=== PATIENT | male | born 1995 | race Caucasian/White ===

== ENCOUNTER 2021-11-26 19:38 | Emergency (ER) | payer OTHER ==
--- OUTSIDE RECORDS SUMMARY | 2021-11-26 19:42 | XMS REPORT | Continuity of Care Document ---
:1995 Author Organization [facility] t Address [address] [place] [address] Care Team Providers Name Role Phone Pcp, Patient Does Not Have A Primary Care Physician [id number] Cindi WILCOX Attending Clinician Abigail MALIK, T Attending Clinician Unavailable CINDI Attending Clinician Unavailable Unknown Attending Clinician Unavailable Doctor Unassigned, Name Attending Clinician Unavailable CAMILLA Attending Clinician Unavailable Camilla LAWSON Attending Clinician Freda REARDON Attending Clinician Unavailable FLORENCE GARCIA Attending Clinician Unavailable SHARIF Attending Clinician Unavailable Payers Payer Name Policy Type Policy Number Effective Date Expiration Date S ource Problems Condition Condition Condition Status Onset Resolution Last Treating Co mments Source Name Details Category Date Date Treatment Clinician Date No known No known Disease Unive rs active active ity of problems problems [facility] [place] [facility] Allergies, Adverse Reactions, Alerts Allergy Allergy Status Severity Reaction(s) Onset Inactive Treating Comm ents Source Name Type Date Date Clinician NO KNOWN Drug Active Univers ALLERGIE Class ity of S [facility] [place] [facility] Social History Social Habit Start Date Stop Date Quantity Comments Source Exposure to Not sure [facility] SARS-CoV-2 (event) Medica l Branch Sex Assigned At [birth year] [facility] 00:00:00 00:00:00 [facility] Smoking Status Start Date Stop Date Source Unknown if ever smoked [facility] Medications Ordered Filled Start Stop Current Ordering Indication Dosage Frequency Signature Comments Components Source Medication Medication Date Date Medication? Clinician (SIG) Name Name fluticasone Yes [id number] 2{spray Use 2 Univers propionate 3-13 } Sprays in ity of 50 00:00: each [place] mcg/actuati 00 nostril Medic al on nasal daily. Branch spray bromphenira Yes [id number] 10mL Take 10 mL Univers mine-pseudo 3-13 by mouth 3 it y of ephedrine-D 00:00: (three) [place] as M (BROMFED 00 times Medical DM) 2-30-10 daily as Bran ch mg/5 mL needed for syrup Cough. fluticasone Yes [id number] 2{spray Use 2 Univers propionate 3-13 } Sprays in ity of 50 00:00: each [place] mcg/actuati 00 nostril Medic al on nasal daily. Branch spray bromphenira Yes [id number] 10mL Take 10 mL Univers mine-pseudo 3-13 by mouth 3 it y of ephedrine-D 00:00: (three) [place] as M (BROMFED 00 times Medical DM) 2-30-10 daily as Bran ch mg/5 mL needed for syrup Cough. fluticasone Yes [id number] 2{spray Use 2 Univers propionate 3-13 } Sprays in ity of 50 00:00: each [place] mcg/actuati 00 nostril Medic al on nasal daily. Branch spray bromphenira Yes [id number] 10mL Take 10 mL Univers mine-pseudo 3-13 by mouth 3 it y of ephedrine-D 00:00: (three) [place] as M (BROMFED 00 times Medical DM) 2-30-10 daily as Bran ch mg/5 mL needed for syrup Cough. benzonatate 2020-08 Yes [id number] 100mg Take 1 Univers 100 mg 1-21 capsule by ity of capsule 00:00: mouth 3 [place] 00 (three) Medical times Branch daily as needed for Cough. bromphenira 2020-08 Yes [id number] 5mL Take 5 mL Univers mine-pseudo 1-21 by mouth 4 it y of ep[place]rine-D 00:00: ([place] (BROMF[place] 00 times Medical DM) 2-30-10 daily as Bran ch mg/5 mL needed for syrup Cold symptoms. benzonatate 2020-08 Yes [id number] 100mg Take 1 Univers 100 mg 1-21 capsule by ity of capsule 00:00: mouth 3 [place] 00 (three) Medical times Branch daily as needed for Cough. bromphenira 2020-08 Yes [id number] 5mL Take 5 mL Univers mine-pseudo 1-21 by mouth 4 it y of ephedrine-D 00:00: (four[place] (BROMFED 00 times Medical DM) 2-30-10 daily as Bran ch mg/5 mL needed for syrup Cold symptoms. bromphenira 2020-08 Yes [id number] 5mL Take 5 mL Univers mine-pseudo 1-21 by mouth 4 it y of ephedrine-D 00:00: (four[place] (BROMFED 00 times Medical DM) 2-30-10 daily as Bran ch mg/5 mL needed for syrup Cold symptoms. bromphenira 2020-08 Yes [id number] 5mL Take 5 mL Univers mine-pseudo 1-21 by mouth 4 it y of ephedrine-D 00:00: (four[place] (BROMFED 00 times Medical DM) 2-30-10 daily as Bran ch mg/5 mL needed for syrup Cold symptoms. bromphenira 2020-08 Yes [id number] 5mL Take 5 mL Univers mine-pseudo 1-21 by mouth 4 it y of ephedrine-D 00:00: (four[place] (BROMFED 00 times Medical DM) 2-30-10 daily as Bran ch mg/5 mL needed for syrup Cold symptoms. benzonatate 2020-08 No [id number] 100mg Take 1 Univers 100 mg -21 03-13 capsule by ity of capsule 00:00: 00:00 mouth 3 [place] 00 :00 (three) Medical times Branch daily as needed for Cough. ibuprofen 2020-08- No 600mg 600 mg, Uni vers (IBU) 08-21 Oral, ity of tablet 600 12:00: 11:55 ONCE, 1 [place] as mg 00 :00 dose, On Medical Fri Branch 06/21/21 at 0600, JADA dexamethaso 2020-08- No 10mg 10 mg, Uni vers ne 08-21 Oral, ity of (DECADRON 11:45: 11:51 ONCE, 1 [place] PHOSPHATE[place] 00 :00 dose, On Medic al injection Fri Branch 10 mg 06/21/21 at 0600, STAT benzonatate 2020-08 Yes [id number] 100mg Take 1 Univers 100 mg 1-19 capsule by ity of capsule 00:00: mouth 3 [place] 00 (three) Medical times Branch daily as needed for Cough. benzonatate 2020-08 Yes [id number] 100mg Take 1 Univers 100 mg 1-19 capsule by ity of capsule 00:00: mouth 3 [place] 00 (three) Medical times Branch daily as needed for Cough. benzonatate 2020-08 Yes [id number] 100mg Take 1 Univers 100 mg 1-19 capsule by ity of capsule 00:00: mouth 3 [place] 00 (three) Medical times Branch daily as needed for Cough. benzonatate 2020-08- No [id number] 100mg Take 1 Univers 100 mg 1-19 -13 capsule by ity of capsule 00:00: 00:00 mouth 3 [place] 00 :00 (three) Medical times Branch daily as needed for Cough. Vital Signs Vital Name Observation Time Observation Value Comments Source Systolic blood 2021-10-13 15:39:00 137 mm[Hg] [facility] Diastolic blood 2021-10-13 15:39:00 82 mm[Hg] [facility] Heart rate 2021-10-13 15:36:00 83 /min [facility] Body temperature 2021-10-13 15:36:00 36.67 Yanet [facility] Respiratory rate 2021-10-13 15:36:00 18 /min [facility] Body height 2021-10-13 15:36:00 188 cm [facility] Body weight 2021-10-13 15:36:00 189.059 kg [facility] BMI 2021-10-13 15:36:00 53.51 kg/m2 [facility] Oxygen saturation in 2021-10-13 15:36:00 97 /min [facility] Arterial blood by [facility] Pulse oximetry Branch Systolic blood 2021-06-23 14:47:00 148 mm[Hg] Univer [facility] Diastolic blood 2021-06-23 14:47:00 100 mm[Hg] Unive rsity of pressure [place] [facility] Heart rate 2021-06-23 14:47:00 89 /min Universi ty of [facility] [place] [facility] Body temperature 2021-06-23 14:47:00 36.89 Yanet Univ ersity of [place] [facility] Respiratory rate 2021-06-23 14:47:00 18 /min Univ ersity of [place] [facility] Oxygen saturation in 2021-06-23 14:47:00 100 /min University of Arterial blood by [facility] Pulse oximetry Branch Body height 2021-06-23 13:07:00 188 cm Universi ty [facility] [place] [facility] [place] Body weight 2021-06-23 13:07:00 181.439 kg [facility]i ty [facility] [place] [facility] [place] BMI 2021-06-23 13:07:00 51.36 kg/m2 Universi ty of [facility] [place] [facility] Systolic blood 2021-06-21 12:33:00 125 mm[Hg] Univneema skelton of [facility] [place] Diastolic blood 2021-06-21 12:33:00 71 mm[Hg] Unive rsity of pressure [place] [facility] [place] Heart rate 2021-06-21 12:33:00 96 /min Universi ty [facility] [place] [facility] [place] Body temperature 2021-06-21 12:33:00 37.06 Yanet Univ ersity of [facility] [place] [facility] Respiratory rate 2021-06-21 12:33:00 18 /min Univ ersity of [facility] [place] [facility] Oxygen saturation in 2021-06-21 12:33:00 98 /min University of Arterial blood by [facility] Pulse oximetry [place] Body height 2021-06-21 11:33:00 188 cm Universi ty [facility] [place] [facility] Body weight 2021-06-21 11:33:00 181.439 kg [facility]i ty [facility] [place] [facility] BMI 2021-06-21 11:33:00 51.36 kg/m2 [facility] [place] [facility] Procedures Procedure Date / Time Performed Performing Clinician Sourc e POCT MOLECULAR FLU 2021-10-13 15:48:00 Unknown, Attending Ulisses skelton [facility] [place] [facility] POCT MOLECULAR STREP 2021-10-13 15:45:00 Unknown, Attending [facility]ENEFITS 2021-10-13 15:31:01 Doctor Unassigned, No [place] Name [facility] RAPID STREP SCREEN FOR 2021-06-23 13:44:00 Sarah Beth Sampson [facility] A [facility] Encounters Start End Encounter Admission Attending Care Care Encounter Source Date/Time Date/Time Type Type Clinicians Facility Department ID 2021-11-09 2021-11-09 Refill TERELL Rai [id number] Univers 00:00:00 00:00:00 Elizabeth PEDIATRIC [id number] [id number] [id number] [address] 2021-10-14 2021-10-14 Letter KYLAH Hayes [id number] Univers 00:00:00 00:00:00 (Out) Daniela EVANS [id number] it y of HOSPITAL [id number] [place] as [id number] [facility] 019 Branch 2021-10-13 2021-10-13 Outpatient R CINID [facility] [id number] Univers 10:45:00 11:10:45 ELIZABETH bella [facility] [place] [facility] 2021-10-13 2021-10-13 Urgent Elizabeth Rai [id number] Univers 10:45:00 11:10:45 Care Unknown, Attending PEDIATRIC [id number]. 10 [id number] [id number] [address] 2021-10-13 2021-10-13 Orders Doctor MONTERO [id number] Univers 00:00:00 00:00:00 Only Unassigned, NATHAN [id number] ity of [place] [facility] [id number] [place] as [id number] [facility] 009 Branch 2021-06-23 2021-06-23 Emergency X [facility] ERT [id number] Univers 07:02:00 08:49:00 SARAH BETH bella [facility] [place] [facility] 2021-06-23 2021-06-23 Emergency [facility] [id number] Univers 07:02:00 08:49:00 [facility] [id number] it y of CLEAR [id number] Steve DARNELL [id number] [place] [address] Branch ([facility]) 2021-06-21 2021-06-[address] [facility] E[facility] [id number] Univers 05:23:00 06:34:00 LUKE ity [facility] [place] [facility] 2021-06-21 2021-06-[address] [facility] [id number] Univers 05:23:00 06:34:00 [facility] [id number] it y of [place] [id number] Steve DARNELL [id number] [place] [address] Branch ([facility]) 2020-12-12 2020-12-12 Emergency E DANY GARCIA [facility] [id number] 11:12:00 12:11:[address] [facility] 2020-12-09 2020-12-09 [id number] 07:13:00 09:52:00 , SULTANA [facility] Results Test Description Test Time Test Comments Results Result Comments Source POCT MOLECULAR FLU 2021-10-13 15:59:44 Test Item Value Reference Range Interpretation Comme nts POCT Molecular FluA (test code = 07236-0) Negative Negative POCT Molecular FluB (test code = 15907-4) Negative Negative Lab Interpretation (test code = 10661-2) [facility] [id number] 15:53:01 Test Item Value Reference Range Interpretation Comments POCT Molecular Strep (test code = Negative Negative 70099-9) Lab Interpretation (test code = Normal 07119-9) [facility]
--- NOTE | 2021-11-26 20:51 | ER ---
Nurse's Notes [facility] Name: Ziyad Parker Age: 26 yrs Sex: Male : 1995 Arrival Date: 11/26/2021 Time: 19:42 Bed DIS3 Private MD: Diagnosis: Impacted cerumen, bilateral;Acute upper respiratory infection, unspecified Presentation: 11/26 20:20 Chief complaint: Patient states: Nasal congestion x 1 week, reports bilateral ear pain, lp1 pain behind ears; Denies fever. 20:21 Coronavirus screen: congestion. Ebola Screen: No symptoms or risks identified at this lp1 time. Initial Sepsis Screen: Does the patient meet any 2 criteria? No. Patient's initial sepsis screen is negative. Does the patient have a suspected source of infection? No. Patient's initial sepsis screen is negative. Risk Assessment: Do you want to hurt yourself or someone else? Patient reports no desire to harm self or others. Onset of symptoms was November 26, 2021. 20:21 Method Of Arrival: Ambulatory lp1 20:21 Acuity: EDUIN 4 lp1 Historical: - Allergies: 20:24 No Known Allergies; lp1 - Home Meds: 20:24 None [Active]; lp1 - PMHx: 20:24 Sleep apnea; lp1 - PSHx: 20:24 None; lp1 - Immunization history:: Adult Immunizations up to date, Client reports receiving the 2nd dose of the Covid vaccine. - Social history:: Smoking status: Patient denies any tobacco usage or history of. Screenin:18 Abuse screen: Denies threats or abuse. Denies injuries from another. Nutritional sm5 screening: No deficits noted. Tuberculosis screening: No symptoms or risk factors identified. Fall Risk None identified. Assessment: 21:17 General: Appears in no apparent distress. Behavior is cooperative. Pain: Complains of sm5 pain in right ear, left ear and neck. Neuro: No deficits noted. Level of Consciousness is awake, alert, obeys commands, Oriented to person, place, time, situation. Cardiovascular: No deficits noted. Capillary refill < 3 seconds Patient's skin is warm and dry. Respiratory: No deficits noted. Airway is patent Trachea midline Respiratory effort is even, unlabored, Breath sounds are clear bilaterally. EENT: Ear canal ear wax to R ear. Vital Signs: 20:21 BP 145 / 85; Pulse 96; Resp 20; Temp 98.9(O); Pulse Ox 98% on R/A; Weight 181.44 kg; lp1 Height 6 ft. 2 in. (187.96 cm); 21:18 BP 141 / 87; Pulse 87; Resp 20; Pulse Ox 100% on R/A; sm5 20:21 Body Mass Index 51.36 (181.44 kg, 187.96 cm) lp1 ED Course: 19:42 Patient arrived in ED. mr 19:48 Chon Dalal MD is Attending Physician. yogesh 20:04 Kayli Solano, HELENA is Primary Nurse. sm5 20:16 COVID-19/FLU A+B/RSV (Document "Date of Onset" if Symptomatic) Sent. sm5 20:20 Arm band placed on. lp1 20:23 Triage completed. lp1 20:49 Sheree Mosquera MD is Referral Physician. yogesh 21:18 No provider procedures requiring assistance completed. Patient did not have IV access sm5 during this emergency room visit. 21:18 Patient has correct armband on for positive identification. Placed in gown. Bed in low sm5 position. Call light in reach. Side rails up X2. Administered Medications: 20:35 CANCELLED (Duplicate Order): Decadron (dexamethasone) 4 mg PO once yogesh 21:03 Drug: Decadron (dexamethasone) 8 mg Route: PO; 5 21:17 Follow up: Response: No adverse reaction 5 21:04 Drug: Rocephin (cefTRIAXone) 1 grams Route: IM; Site: left deltoid; 5 21:16 Follow up: Response: No adverse reaction 5 21:04 Drug: Zithromax (azithromycin) 500 mg Route: PO; sm5 21:16 Follow up: Response: No adverse reaction 5 Outcome: 20:50 Discharge ordered by . [facility] 21:18 Discharged to home ambulatory. 5 21:18 Condition: stable 21:18 Discharge instructions given to patient, Instructed on discharge instructions, follow up and referral plans. medication usage, Demonstrated understanding of instructions, follow-up care, medications, Prescriptions given X 3. 21:19 Patient left the ED. 5 Signatures: Chon Dalal MD MD cha Rivera, Mary mr Angela Mir, HELENA RN lp1 Russ, Kayli, RN RN sm5 Corrections: (The following items were deleted from the chart) 20:23 20:20 Chief complaint: Patient states: Nasal congestion x 1 week, reports bilateral lp1 lp1
--- NOTE | 2021-11-26 20:51 | EDPHYS ---
Physician Documentation [facility] Name: Ziyad Parker Age: 26 yrs Sex: Male : 1995 Arrival Date: 11/26/2021 Time: 19:42 Bed DIS3 Private MD: ED Physician Chon Dalal HPI: 11/26 20:41 This 26 yrs old Male presents to ER via Ambulatory with complaints of yogesh Congestion, Neck pain. 20:41 The patient or guardian reports cough, flu symptoms, arthralgias, low-grade fever, ygoesh myalgias. Onset: The symptoms/episode began/occurred 1 week(s) ago. Modifying factors: The symptoms are alleviated by nothing. the symptoms are aggravated by nothing. Associated signs and symptoms: Pertinent positives: sore throat. Severity of symptoms: At their worst the symptoms were mild in the emergency department the symptoms are unchanged. The patient has not experienced similar symptoms in the past. Historical: - Allergies: 20:24 No Known Allergies; lp1 - Home Meds: 20:24 None [Active]; lp1 - PMHx: 20:24 Sleep apnea; lp1 - PSHx: 20:24 None; lp1 - Immunization history:: Adult Immunizations up to date, Client reports receiving the 2nd dose of the Covid vaccine. - Social history:: Smoking status: Patient denies any tobacco usage or history of. ROS: 20:41 Constitutional: Negative for fever, chills, and weight loss, Eyes: Negative for injury, yogesh pain, redness, and discharge, Neck: Negative for injury, pain, and swelling, Cardiovascular: Negative for chest pain, palpitations, and edema, Respiratory: Negative for shortness of breath, cough, wheezing, and pleuritic chest pain, Abdomen/GI: Negative for abdominal pain, nausea, vomiting, diarrhea, and constipation, Back: Negative for injury and pain, : Negative for injury, bleeding, discharge, and swelling, MS/Extremity: Negative for injury and deformity, Skin: Negative for injury, rash, and discoloration, Neuro: Negative for headache, weakness, numbness, tingling, and seizure, Psych: Negative for depression, anxiety, suicide ideation, homicidal ideation, and hallucinations, Allergy/Immunology: Negative for hives, rash, and allergies, Endocrine: Negative for neck swelling, polydipsia, polyuria, polyphagia, and marked weight changes, Hematologic/Lymphatic: Negative for swollen nodes, abnormal bleeding, and unusual bruising. 20:41 ENT: Positive for drainage from ear(s), ear pain, hearing loss, nasal discharge, rhinorrhea, sinus congestion. Exam: 20:41 Constitutional: This is a well developed, well nourished patient who is awake, alert, yogesh and in no acute distress. Head/Face: Normocephalic, atraumatic. Eyes: Pupils equal round and reactive to light, extra-ocular motions intact. Lids and lashes normal. Conjunctiva and sclera are non-icteric and not injected. Cornea within normal limits. Periorbital areas with no swelling, redness, or edema. Neck: Trachea midline, no thyromegaly or masses palpated, and no cervical lymphadenopathy. Supple, full range of motion without nuchal rigidity, or vertebral point tenderness. No Meningismus. Chest/axilla: Normal chest wall appearance and motion. Nontender with no deformity. No lesions are appreciated. Cardiovascular: Regular rate and rhythm with a normal S1 and S2. No gallops, murmurs, or rubs. Normal PMI, no JVD. No pulse deficits. Respiratory: Lungs have equal breath sounds bilaterally, clear to auscultation and percussion. No rales, rhonchi or wheezes noted. No increased work of breathing, no retractions or nasal flaring. Abdomen/GI: Soft, non-tender, with normal bowel sounds. No distension or tympany. No guarding or rebound. No evidence of tenderness throughout. Back: No spinal tenderness. No costovertebral tenderness. Full range of motion. Male : Normal genitalia with no discharge or lesions. Skin: Warm, dry with normal turgor. Normal color with no rashes, no lesions, and no evidence of cellulitis. MS/ Extremity: Pulses equal, no cyanosis. Neurovascular intact. Full, normal range of motion. Neuro: Awake and alert, GCS 15, oriented to person, place, time, and situation. Cranial nerves II-XII grossly intact. Motor strength 5/5 in all extremities. Sensory grossly intact. Cerebellar exam normal. Normal gait. Psych: Awake, alert, with orientation to person, place and time. Behavior, mood, and affect are within normal limits. 20:41 ENT: Ear canal(s): cerumen impaction, bilaterally, TM's: not visable. Vital Signs: 20:21 BP 145 / 85; Pulse 96; Resp 20; Temp 98.9(O); Pulse Ox 98% on R/A; Weight 181.44 kg; lp1 Height 6 ft. 2 in. (187.96 cm); 21:18 BP 141 / 87; Pulse 87; Resp 20; Pulse Ox 100% on R/A; sm5 20:21 Body Mass Index 51.36 (181.44 kg, 187.96 cm) lp1 MDM: 19:48 Patient medically screened. yogesh 20:48 Differential diagnosis: bronchitis, flu, URI. Antibiotic administration: The patient is yogesh discharged and will get outpatient antibiotics, Zithromax. Data reviewed: vital signs, nurses notes. Data interpreted: hall monitor: not applicable for this patient encounter. rate is 98 beats/min, rhythm is atrial fibrillation, Pulse oximetry: is not applicable for this patient encounter. Counseling: I had a detailed discussion with the patient and/or guardian regarding: the historical points, exam findings, and any diagnostic results supporting the discharge/admit diagnosis, lab results, the need for outpatient follow up, for definitive care, an ENT specialist, a family practitioner. 11/26 19:49 Order name: COVID-19/FLU A+B/RSV (Document "Date of Onset" if Symptomatic); Complete yogesh Time: 21:04 11/26 20:36 Order name: Poppyc. Order: irrigate ears, warm h20,h2o2; Complete Time: 20:42 yogesh Administered Medications: 20:35 CANCELLED (Duplicate Order): Decadron (dexamethasone) 4 mg PO once yogesh 21:03 Drug: Decadron (dexamethasone) 8 mg Route: PO; sm5 21:17 Follow up: Response: No adverse reaction sm5 21:04 Drug: Rocephin (cefTRIAXone) 1 grams Route: IM; Site: left deltoid; sm5 21:16 Follow up: Response: No adverse reaction sm5 21:04 Drug: Zithromax (azithromycin) 500 mg Route: PO; sm5 21:16 Follow up: Response: No adverse reaction 5 Disposition Summary: 11/26/21 20:50 Discharge Ordered Location: Home yogesh Problem: new yogesh Symptoms: have improved yogesh Condition: Stable yogesh Diagnosis - Impacted cerumen, bilateral yogesh - Acute upper respiratory infection, unspecified [facility] Followup: yogesh - With: Private Physician - When: 2 - 3 days - Reason: Recheck today's complaints, Continuance of care, Re-evaluation by your physician Followup: yogesh - With: Sheree Mosquera MD - When: 2 - 3 days - Reason: Recheck today's complaints, Re-evaluation by your physician Discharge Instructions: - Discharge Summary Sheet [facility] - Earwax Buildup, Adult yogesh - Upper Respiratory Infection, Adult [facility] - Upper Respiratory Infection, Adult, [id number] [facility] - Cough, Adult [facility] Forms: - Medication Reconciliation Form [facility] - Thank You Letter yogesh - Antibiotic Education [facility] - Prescription Opioid Use [facility] Prescriptions: - Antonella-D 12 Hour 60-120 mg Oral tablet extended release 12 hr - take 1 tablet by ORAL route every 12 hours As needed; 30 tablet; Refills: 0, [facility] Product Selection Permitted - Zithromax 500 mg Oral Tablet - take 1 tablet by ORAL route once daily for 5 days; 5 tablet; Refills: 0, [facility] Product Selection Permitted - dexamethasone 2 mg Oral tablet - take 1 tablet by ORAL route 2 times per day; 10 tablet; Refills: 0, Product cp Selection Permitted Signatures: Dispatcher [employer] EDChon Larsen MD MD cha Pena, Laura, RN RN lp1 Kayli Solano RN RN sm5 Corrections: (The following items were deleted from the chart) 20:35 20:35 Decadron (dexamethasone) 4 mg PO once ordered. yogesh zuñiga
[2021-11-26] MEDS ORDERED: dexAMETHasone 4 MG TAB ONE (20:52)
[2021-11-26] MEDS ORDERED: AZITHROMYCIN 250 MG TAB ONE (20:52)
[2021-11-26] MEDS ORDERED: CEFTRIAXONE 1000 MG/VIAL ONE (20:52)
[2021-11-26] MEDS ORDERED: LIDOCAINE 1% MPF 2 ML AMPULE ONE (20:53)
[2021-11-26 20:57] LABS: SARS-COV-2 RT PCR NEGATIVE (NEGATIVE)
[2021-11-27 00:16] VITALS: TEMP 98.9
[2021-11-27 00:18] VITALS: BP 141/87; O2SAT 100
== END 2021-11-26 21:19 | disposition home or self-care (01) ==
LOC: ER 19:38
DX: J06.9 Acute upper respiratory infection, unspecified (principal); H61.23 Impacted cerumen, bilateral; Z20.822 Contact with and (suspected) exposure to COVID-19
CPT/HCPCS: 0241U; J8540; 96372; 99283

== ENCOUNTER 2021-12-03 03:36 | Emergency (ER) | payer OTHER, SELFPAY ==
--- OUTSIDE RECORDS SUMMARY | 2021-12-03 03:38 | XMS REPORT | Continuity of Care Document ---
:1995 Author Organization [facility] t Address [address] [place] [address] Care Team Providers Name Role Phone Pcp, [...] rs active active ity of problems problems [facility] Allergies, Adverse Reactions, Alerts Allergy Allergy Status Severity Reaction(s) Onset Inactive Treating Comm ents Source Name Type Date Date Clinician NO KNOWN Drug Active Univers ALLERGIE Class ity of S [facility] Social History Social Habit Start Date Stop Date Quantity Comments Source Exposure to Not sure [facility] SARS-CoV-2 (event) Medica l Branch Sex Assigned At [birth year] [facility] 00:00:00 00:00:00 [facility] Smoking Status Start Date Stop Date Source Unknown if ever smoked [facility] Medications Ordered Filled Start Stop Current Ordering Indication Dosage Frequency Signature Comments Components Source Medication Medication Date Date Medication? Clinician (SIG) Name Name fluticasone Yes [id number] 2{spray Use 2 Univers propionate 3-13 } Sprays in ity of 50 00:00: each [place] mcg/actuati 00 nostril Medic al on nasal daily. Branch spray bromphenira Yes [id number] 10mL Take 10 mL Univers mine-pseudo 3-13 by mouth 3 it y of ephedrine-D 00:00: (three) [place] as M (BROMFED 00 times Medical DM) 2-30-10 daily as Bran ch mg/5 mL needed for syrup Cough. fluticasone Yes [id number] 2{spray Use 2 Univers propionate 3-13 } Sprays in ity of 50 00:00: each [place] mcg/actuati 00 nostril Medic al on nasal daily. Branch spray bromphenira Yes [id number] 10mL Take 10 mL Univers mine-pseudo 3-13 by mouth 3 it y of ephedrine-D 00:00: (three) [place] as M (BROMFED 00 times Medical DM) 2-30-10 daily as Bran ch mg/5 mL needed for syrup Cough. fluticasone Yes [id number] 2{spray Use 2 Univers propionate 3-13 } Sprays in ity of 50 00:00: each [place] mcg/actuati 00 nostril Medic al on nasal daily. Branch spray bromphenira Yes [id number] 10mL Take 10 mL Univers mine-pseudo 3-13 by mouth 3 it y of ephedrine-D 00:00: (three) [place] as M (BROMFED 00 times Medical DM) 2-30-10 daily as Bran ch mg/5 mL needed for syrup Cough. benzonatate 2020-08 Yes [id number] 100mg Take 1 Univers 100 mg 1-21 capsule by ity of capsule 00:00: mouth 3 [place] 00 (three) Medical times Branch daily as needed for Cough. bromphenira 2020-08 Yes [id number] 5mL Take 5 mL Univers mine-pseudo 1-21 by mouth 4 it y of ep[place]rine-D 00:[place]: ([place] (BROMF[place] 00 times Medical DM) 2-30-10 daily as Bran ch mg/5 mL needed for syrup Cold symptoms. benzonatate 2020-08 Yes [id number] 100mg Take 1 Univers 100 mg 1-21 capsule by ity of capsule 00:00: mouth 3 [place] 00 (three) Medical times Branch daily as needed for Cough. bromphenira 2020-08 Yes [id number] 5mL Take 5 mL Univers mine-pseudo 1-21 by mouth 4 it y of ephedrine-D 00:00: ([place] (BROMFED 00 times Medical DM) 2-30-10 daily as Bran ch mg/5 mL needed for syrup Cold symptoms. bromphenira 2020-08 Yes [id number] 5mL Take 5 mL Univers mine-pseudo 1-21 by mouth 4 it y of ephedrine-D 00:00: (four[place] (BROMFED times Medical DM) 2-30-10 daily as Bran ch mg/5 mL needed for syrup Cold symptoms. bromphenira 2020-08 Yes [id number] 5mL Take 5 mL Univers mine-pseudo 1-21 by mouth 4 it y of ephedrine-D 00:00: (four[place] (BROMFED 00 times Medical DM) 2-30-10 daily as Bran ch mg/5 mL needed for syrup Cold symptoms. bromphenira 2020-08 Yes [id number] 5mL Take 5 mL Univers mine-pseudo 1-21 by mouth 4 it y of ephedrine-D 00:00: (four[place] (BROMFED 00 times Medical DM) 2-30-10 daily as Bran ch mg/5 mL needed for syrup Cold symptoms. benzonatate 2020-08 No [id number] 100mg Take 1 Univers 100 mg 1-21 03-13 capsule by ity of capsule 00:00: 00:00 mouth 3 [place] 00 :00 (three) Medical times Branch daily as needed for Cough. ibuprofen 2020-08- No 600mg 600 mg, Uni vers (IBU) 08-21 Oral, ity of tablet 600 12:00: 11:55 ONCE, 1 [place] as mg 00 :00 dose, On Medical Fri Branch 06/21/21 at 0600, JADA dexamethaso 2020-08 No 10mg 10 mg, Uni vers ne 08-21 Oral, ity of (DECADRON 11:45: 11:51 ONCE, 1 [place] PHOSPHATE[place] 00 :00 dose, On Medic al injection Fri Branch 10 mg 06/21/21 at 0600, STAT benzonatate 2020-08 Yes [id number] 100mg Take 1 Univers 100 mg 1-19 capsule by ity of capsule 00:00: mouth 3 [place] 00 (three) Medical times Branch daily as needed for Cough. benzonatate 2020-08 Yes [id number] 100mg Take 1 Univers 100 mg 1-19 capsule by ity of capsule 00:00: mouth 3 [place] 00 (three) Medical times Branch daily as needed for Cough. benzonatate 2020-08 Yes [id number] 100mg Take 1 Univers 100 mg 1-19 capsule by ity of capsule 00:00: mouth 3 [place] 00 (three) Medical times Branch daily as needed for Cough. benzonatate 2020-08- No [id number] 100mg Take 1 Univers 100 mg 1-19 - capsule by ity of capsule 00:00: 00:00 mouth 3 [place] 00 :00 (three) Medical times Branch daily as needed for Cough. Vital Signs Vital Name Observation Time Observation Value Comments Source Systolic blood 2021-10-13 15:39:00 137 mm[Hg] [facility] [place] [facility] Diastolic blood 2021-10-13 15:39:00 82 mm[Hg] [facility] Heart rate 2021-10-13 15:36:00 83 /min [facility] Body temperature 2021-10-13 15:36:00 36.67 Yanet [facility] Respiratory rate 2021-10-13 15:36:00 18 /min [facility] Body height 2021-10-13 15:36:00 188 cm [facility] Body weight 2021-10-13 15:36:00 189.059 kg [facility] BMI 2021-10-13 15:36:00 53.51 kg/m2 [facility] Oxygen saturation in 2021-10-13 15:36:00 97 /min [facility] Arterial blood by [facility] Pulse oximetry Branch Systolic blood 2021-06-23 14:47:00 148 mm[Hg] [facility] [place] [facility] Diastolic blood 2021-06-23 14:47:00 100 mm[Hg] Unive rsity of pressure [place] [facility] Heart rate 2021-06-23 14:47:00 89 /min Universi ty of [facility] Body temperature 2021-06-23 14:47:00 36.89 Yanet Univ ersity of [place] [facility] Respiratory rate 2021-06-23 14:47:00 18 /min Univ [facility] [place] [facility] Oxygen saturation in 2021-06-23 14:47:00 100 /min University of Arterial blood by [facility] Pulse oximetry Branch Body height 2021-06-23 13:07:00 188 cm [facility]i ty [facility] [place] [facility] Body weight 2021-06-23 13:07:00 181.439 kg [facility] [place] [facility] BMI 2021-06-23 13:07:00 51.36 kg/m2 [facility] [place] [facility] Systolic blood 2021-06-21 12:33:00 125 mm[Hg] Univneema skelton [facility] Diastolic blood 2021-06-21 12:33:00 71 mm[Hg] Unive rsity of pressure [place] [facility] Heart rate 2021-06-21 12:33:00 96 /min [facility]i [facility] [place] [facility] Body temperature 2021-06-21 12:33:00 37.06 Yanet [facility] [place] [facility] Respiratory rate 2021-06-21 12:33:00 18 /min Univ [facility] [place] [facility] Oxygen saturation in 2021-06-21 12:33:00 98 /min University of Arterial blood by [facility] Pulse oximetry Branch Body height 2021-06-21 11:33:00 188 cm [facility] [place] [facility] Body weight 2021-06-21 11:33:00 181.439 kg [facility] [place] [facility] BMI 2021-06-21 11:33:00 51.36 kg/m2 [facility] [place] [facility] Procedures Procedure Date / Time Performed Performing Clinician Sourc e POCT MOLECULAR FLU 2021-10-13 15:48:00 Unknown, Attending Ulisses skelton [facility] POCT MOLECULAR STREP 2021-10-13 15:45:00 Unknown, Attending Univ ersity [facility] ASSIGNMENT OF BENEFITS 2021-10-13 15:31:01 Doctor Unassigned, No [facility] Name [facility] RAPID STREP SCREEN FOR 2021-06-23 13:44:00 Sarah Beth Sampson [facility] A [facility] Encounters Start End Encounter Admission Attending Care Care Encounter Source Date/Time Date/Time Type Type Clinicians Facility Department ID 2021-11-09 2021-11-09 Refill TERELL Rai [id number] Univers 00:00:00 00:00:00 Elizabeth PEDIATRIC [id number] [id number] [id number] [address] 2021-10-14 2021-10-14 Letter KYLAH Hayes [id number] Univers 00:00:00 00:00:00 (Out) Daniela EVANS [id number] it y of HOSPITAL [id number] [place] as [id number] [facility] [address] [place] 2021-10-13 2021-10-13 Outpatient R CINDI [facility] [id number] Univers 10:45:00 11:10:45 ELIZABETH bella [facility] 2021-10-13 2021-10-13 Urgent Elizabeth Rai [id number] Univers 10:45:00 11:10:45 Care Unknown, Attending PEDIATRIC [id number] 10 [id number] [id number] [address] 2021-10-13 2021-10-13 Orders Doctor MONTERO [id number] Univers 00:00:00 00:00:00 Only Unassigned, NATHAN [id number] ity of [place] [facility] [id number] [place] as [id number] [place] [address] Branch 2021-06-23 2021-06-23 Emergency X [facility] ERT [id number] Univers 07:02:00 08:49:00 SARAH BETH bella [facility] 2021-06-23 2021-06-23 Emergency [facility] [id number] Univers 07:02:00 08:49:00 [facility] [id number] it y of [place] [id number] Steve DARNELL [id number] [address] ([facility]) 2021-06-21 2021-06-21 Emergency [facility] [id number] Univers 05:23:00 06:34:00 LUKE ity [facility] 2021-06-21 2021-06-21 [facility] [id number] Univers 05:23:00 06:34:00 [facility] [id number] it y of [place] [id number] Steve DARNELL [phone] [address] ([facility]) 2020-12-12 2020-12-12 Emergency E DANY [id number] 11:12:00 12:11:[address] [facility] 2020-12-09 2020-12-09 [id number] 07:13:00 09:52:00 , [facility] Results Test Description Test Time Test Comments Results Result Comments Source POCT MOLECULAR FLU 2021-10-13 15:59:44 Test Item Value Reference Range Interpretation Comme nts POCT Molecular FluA (test code = 30849-8) Negative Negative POCT Molecular FluB (test code = 57310-4) Negative Negative Lab Interpretation (test code = 53944-6) [id number] 15:53:01 Test Item Value Reference Range Interpretation Comments POCT Molecular Strep (test code = Negative Negative 58291-3) Lab Interpretation (test code = Normal 44841-8) [facility]
[2021-12-03 04:18] LABS: Urine Blood Trace-intact (Negative); Urine Glucose Negative (Negative); Urine Protein Negative (Negative); Urine pH 6.5 (5.0-7.0)
[2021-12-03] MEDS ORDERED: ONDANSETRON 4 MG/2 ML VIAL ONE (04:24)
[2021-12-03] MEDS ORDERED: MORPHINE 2 MG/ML SYR ONE (04:24)
[2021-12-03] MEDS ORDERED: NA CHLORIDE 0.9% 1,000 ML ONE (04:24)
[2021-12-03] MEDS ORDERED: FAMOTIDINE 20 MG/2 ML VIAL IV ONE (04:25)
[2021-12-03 04:30] LABS: Absolute Lymphocytes (CBC) 1.5 K/uL (0.7-4.9); Lymphocytes % 12.2 % (15.3-44.8); MPV 7.3 fL (7.6-11.3); RBC Red Blood Cell Count 5.19 M/uL (4.33-5.43)
[2021-12-03 04:37] LABS: ALT/SGPT 49 U/L (12-78); AST/SGOT 17 U/L (15-37); Albumin 3.3 g/dL (3.4-5.0); Alkaline Phosphatase 59 U/L (45-117); BUN Blood Urea Nitrogen 18 mg/dL (7-18); Bicarbonate 25 mmol/L (21-32); Bilirubin Total 0.5 mg/dL (0.2-1.0); Glucose Level 107 mg/dL (74-106); Lipase 155 U/L (73-393); Potassium 3.7 mmol/L (3.5-5.1); Protein, Total 7.3 g/dL (6.4-8.2); Sodium Level 136 mmol/L (136-145)
--- NOTE | 2021-12-03 06:15 | ER ---
Nurse's Notes [facility] Name: Ziyad Parker Age: 26 yrs Sex: Male : 1995 Arrival Date: 12/03/2021 Time: 03:39 Bed 18 Private MD: Diagnosis: Abdominal pain, unspecified;Obesity, unspecified Presentation: 12/03 03:46 Chief complaint: Patient states: "I was seen at another facility today for chest pain vc1 and was diagnosed with reflux, now I am having really bad abdominal pain in the middle of my stomach then it moves to the right side and my back. My throat is also hurting and I have a headache. They gave me Tylenol, Bentyl, and protonix and sent me home with a prescription for the bentyl and protonix I just didn't get a chance fill them because the pharmacy was closed. Coronavirus screen: Vaccine status: Patient reports receiving the 2nd dose of the covid vaccine. Moderna headache, sore throat, Client presents with at least one sign or symptom that may indicate coronavirus-19. Standard/surgical mask placed on the client. Provider contacted for isolation considerations. Ebola Screen: No symptoms or risks identified at this time. Initial Sepsis Screen: Does the patient meet any 2 criteria? HR > 90 bpm. No. Patient's initial sepsis screen is negative. Does the patient have a suspected source of infection? Yes: Acute abdominal pain. Risk Assessment: Do you want to hurt yourself or someone else? Patient reports no desire to harm self or others. Onset of symptoms was December 03, 2021. 03:46 Method Of Arrival: Ambulatory vc1 03:46 Acuity: EDUIN 3 vc1 Triage Assessment: 04:00 General: Appears in no apparent distress. uncomfortable, obese, Behavior is calm, vc1 cooperative, appropriate for age. Pain: Complains of pain in epigastric area and left upper quadrant and right upper quadrant Pain radiates to anterior aspect of right lateral abdomen and posterior aspect of right lateral abdomen Pain currently is 6 out of 10 on a pain scale. EENT: Reports pain when swallowing. 04:00 Neuro: Level of Consciousness is awake, alert, obeys commands, Oriented to person, vc1 place, time, situation, Appropriate for age. Cardiovascular: No deficits noted. Respiratory: No deficits noted. GI: Abdomen is round non-distended, Reports epigastric pain, indigestion, Patient currently denies diarrhea, vomiting. : Reports burning with urination, pain with urination. Historical: - Allergies: 03:54 No Known Allergies; vc1 - Home Meds: 03:54 None [Active]; vc1 - PMHx: 03:54 Sleep Apnea; vc1 - PSHx: 03:54 None; vc1 - Immunization history:: Adult Immunizations up to date, Client reports receiving the 2nd dose of the Covid vaccine, Also received booster; Moderna Flu vaccine is up to date. - Social history:: Smoking status: Patient denies any tobacco usage or history of. Screenin:50 Abuse screen: Denies threats or abuse. Nutritional screening: No deficits noted. vc1 Tuberculosis screening: No symptoms or risk factors identified. Fall Risk None identified. Assessment: 04:00 Reassessment: See triage assessment. vc1 05:00 Reassessment: No changes from previously documented assessment. Patient and/or family vc1 updated on plan of care and expected duration. Pain level reassessed. Patient is alert, oriented x 3, equal unlabored respirations, skin warm/dry/pink. 06:00 Reassessment: No changes from previously documented assessment. Patient and/or family vc1 updated on plan of care and expected duration. Pain level reassessed. Patient is alert, oriented x 3, equal unlabored respirations, skin warm/dry/pink. Patient states symptoms have improved. 07:00 Reassessment: No changes from previously documented assessment. Patient and/or family vc1 updated on plan of care and expected duration. Pain level reassessed. Patient is alert, oriented x 3, equal unlabored respirations, skin warm/dry/pink. Patient states feeling better. Patient states symptoms have improved. Vital Signs: 03:46 BP 133 / 82; Pulse 109; Resp 18; Temp 98.8; Pulse Ox 97% on R/A; Weight 183.7 kg; vc1 Height 6 ft. 2 in. (187.96 cm); Pain 6/10; 05:00 BP 133 / 78; Pulse 91; Resp 18; Pulse Ox 95% on R/A; vc1 06:00 BP 115 / 63; Pulse 90; Resp 17; Pulse Ox 92% on R/A; vc1 03:46 Body Mass Index 52.00 (183.70 kg, 187.96 cm) vc1 ED Course: 03:39 Patient arrived in ED. kz 03:41 Chon Dalal MD is Attending Physician. yogesh 03:54 Triage completed. vc1 03:55 Arm band placed on right wrist. vc1 04:00 Patient has correct armband on for positive identification. Bed in low position. Call vc1 light in reach. Side rails up X2. Pulse ox on. NIBP on. 04:00 Initial lab(s) drawn, by me, sent to lab. Inserted saline lock: 18 gauge in left bb antecubital area, using aseptic technique. Blood collected. 04:10 Leigh Laughlin, RN is Primary Nurse. vc1 05:30 CT Abd/Pelvis - IV Contrast Only In Process Unspecified. EDMS 05:36 US Abdomen Limited In Process Unspecified. EDMS 06:15 Keshav Antoine MD is Referral Physician. yogesh 06:59 No provider procedures requiring assistance completed. IV discontinued, intact, vc1 bleeding controlled, No redness/swelling at site. Pressure dressing applied. Administered Medications: 04:29 Drug: NS 0.9% 1000 ml Route: IV; Rate: 1 bolus; Site: left antecubital; vc1 04:29 Drug: Pepcid (famotidine) 20 mg Route: IVP; Site: left antecubital; vc1 04:29 Drug: Zofran (Ondansetron) 4 mg Route: IVP; Site: left antecubital; vc1 04:29 Drug: morphine 2 mg Route: IVP; Site: left antecubital; vc1 Outcome: 06:15 Discharge ordered by . yogesh 06:59 Discharged to home ambulatory. vc1 06:59 Condition: good 06:59 Discharge instructions given to patient, Instructed on discharge instructions, follow up and referral plans. medication usage, Demonstrated understanding of instructions, follow-up care, medications, Prescriptions given X 3. 07:01 Patient left the ED. vc1 Signatures: Dispatcher [employer] EDAL Chon Dalal MD MD cha Ballard, Brenda, RN RN bb Leigh Laughlin, HELENA RN vc1 Yanet Escalante
--- NOTE | 2021-12-03 06:15 | EDPHYS ---
Physician Documentation [facility] Name: Ziyad Parker Age: 26 yrs Sex: Male : 1995 Arrival Date: 12/03/2021 Time: 03:39 Bed 18 Private MD: ALIX Physician Chon Dalal HPI: 12/03 04:54 This 26 yrs old Male presents to ER via Ambulatory with complaints of [facility] Abdominal Pain, Nausea. 04:54 The patient presents to the emergency department with nausea, abdominal pain, of the yogesh right upper quadrant and left upper quadrant, described as crampy, and does not radiate. Onset: The symptoms/episode began/occurred 1 day(s) ago. Possible causes: unknown. The symptoms are aggravated by nothing. The symptoms are alleviated by nothing. Associated signs and symptoms: The patient has no apparent associated signs or symptoms. Severity of symptoms: At their worst the symptoms were mild moderate in the emergency department the symptoms are unchanged. The patient has not experienced similar symptoms in the past. Historical: - Allergies: 03:54 No Known Allergies; vc1 - Home Meds: 03:54 None [Active]; vc1 - PMHx: 03:54 Sleep Apnea; vc1 - PSHx: 03:54 None; vc1 - Immunization history:: Adult Immunizations up to date, Client reports receiving the 2nd dose of the Covid vaccine, Also received booster; Moderna Flu vaccine is up to date. - Social history:: Smoking status: Patient denies any tobacco usage or history of. ROS: 04:54 Constitutional: Negative for fever, chills, and weight loss, Eyes: Negative for injury, yogesh pain, redness, and discharge, ENT: Negative for injury, pain, and discharge, Neck: Negative for injury, pain, and swelling, Cardiovascular: Negative for chest pain, palpitations, and edema, Respiratory: Negative for shortness of breath, cough, wheezing, and pleuritic chest pain, Back: Negative for injury and pain, : Negative for injury, bleeding, discharge, and swelling, MS/Extremity: Negative for injury and deformity, Skin: Negative for injury, rash, and discoloration, Neuro: Negative for headache, weakness, numbness, tingling, and seizure, Psych: Negative for depression, anxiety, suicide ideation, homicidal ideation, and hallucinations, Allergy/Immunology: Negative for hives, rash, and allergies, Endocrine: Negative for neck swelling, polydipsia, polyuria, polyphagia, and marked weight changes, Hematologic/Lymphatic: Negative for swollen nodes, abnormal bleeding, and unusual bruising. 04:54 Abdomen/GI: Positive for abdominal pain, of the right upper quadrant and left upper quadrant. Exam: 04:54 Constitutional: This is a well developed, well nourished patient who is awake, alert, yogesh and in no acute distress. Head/Face: Normocephalic, atraumatic. Eyes: Pupils equal round and reactive to light, extra-ocular motions intact. Lids and lashes normal. Conjunctiva and sclera are non-icteric and not injected. Cornea within normal limits. Periorbital areas with no swelling, redness, or edema. ENT: Nares patent. No nasal discharge, no septal abnormalities noted. Tympanic membranes are normal and external auditory canals are clear. Oropharynx with no redness, swelling, or masses, exudates, or evidence of obstruction, uvula midline. Mucous membranes moist. Neck: Trachea midline, no thyromegaly or masses palpated, and no cervical lymphadenopathy. Supple, full range of motion without nuchal rigidity, or vertebral point tenderness. No Meningismus. Chest/axilla: Normal chest wall appearance and motion. Nontender with no deformity. No lesions are appreciated. Cardiovascular: Regular rate and rhythm with a normal S1 and S2. No gallops, murmurs, or rubs. Normal PMI, no JVD. No pulse deficits. Respiratory: Lungs have equal breath sounds bilaterally, clear to auscultation and percussion. No rales, rhonchi or wheezes noted. No increased work of breathing, no retractions or nasal flaring. Back: No spinal tenderness. No costovertebral tenderness. Full range of motion. Male : Normal genitalia with no discharge or lesions. Skin: Warm, dry with normal turgor. Normal color with no rashes, no lesions, and no evidence of cellulitis. MS/ Extremity: Pulses equal, no cyanosis. Neurovascular intact. Full, normal range of motion. Neuro: Awake and alert, GCS 15, oriented to person, place, time, and situation. Cranial nerves II-XII grossly intact. Motor strength 5/5 in all extremities. Sensory grossly intact. Cerebellar exam normal. Normal gait. Psych: Awake, alert, with orientation to person, place and time. Behavior, mood, and affect are within normal limits. 04:54 Abdomen/GI: Inspection: abdomen appears normal, Palpation: mild abdominal tenderness, in the epigastric area, right upper quadrant and left upper quadrant, Liver: no appreciated palpable abnormalities, Hernia: not appreciated. Vital Signs: 03:46 BP 133 / 82; Pulse 109; Resp 18; Temp 98.8; Pulse Ox 97% on R/A; Weight 183.7 kg; vc1 Height 6 ft. 2 in. (187.96 cm); Pain 6/10; 05:00 BP 133 / 78; Pulse 91; Resp 18; Pulse Ox 95% on R/A; vc1 06:00 BP 115 / 63; Pulse 90; Resp 17; Pulse Ox 92% on R/A; vc1 03:46 Body Mass Index 52.00 (183.70 kg, 187.96 cm) vc1 MDM: 03:41 Patient medically screened. yogesh 04:56 Differential diagnosis: Nonspecific abd pain, gastritis, cholecystitis, pancreatitis, yogesh appendicitis, diverticulitis, viral gastroenteritis, gastroenteritis. Data reviewed: vital signs, nurses notes, lab test result(s), radiologic studies, CT scan, ultrasound. 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 Test interpretation: by ED physician or midlevel provider: plain radiologic studies. Counseling: I had a detailed discussion with the patient and/or guardian regarding: the historical points, exam findings, and any diagnostic results supporting the discharge/admit diagnosis, the presence of at least one elevated blood pressure reading (>120/80) during this emergency department visit, lab results, radiology results, the need for outpatient follow up, for definitive care, a family practitioner, a human resources assistant manager. 12/03 03:42 Order name: CBC with Diff; Complete Time: 04:42 yogesh 12/03 03:42 Order name: CMP; Complete Time: 04:42 yogesh 12/03 03:42 Order name: Lipase; Complete Time: 04:42 yogesh 12/03 04:11 Order name: Strep; Complete Time: 06:14 vc1 12/03 04:18 Order name: Urine Dipstick-Ancillary; Complete Time: 04:19 EDMS 12/03 05:15 Order name: Throat Culture [facility] 12/03 03:42 Order name: IV Saline Lock; Complete Time: 04:08 [facility] 12/03 03:42 Order name: Labs collected and sent; Complete Time: 04:08 [facility] 12/03 03:43 Order name: CT Abd/Pelvis - IV Contrast Only [facility] 12/03 04:42 Order name: US Abdomen Limited [facility] 12/03 04:11 Order name: Urine Dipstick-Ancillary (obtain specimen); Complete Time: 04:29 vc1 Administered Medications: 04:29 Drug: NS 0.9% 1000 ml Route: IV; Rate: 1 bolus; Site: left antecubital; vc1 04:29 Drug: Pepcid (famotidine) 20 mg Route: IVP; Site: left antecubital; vc1 04:29 Drug: Zofran (Ondansetron) 4 mg Route: IVP; Site: left antecubital; vc1 04:29 Drug: morphine 2 mg Route: IVP; Site: left antecubital; vc1 Disposition Summary: 12/03/21 06:15 Discharge Ordered Location: Home [facility] Problem: new yogesh Symptoms: have improved yogesh Condition: Stable yogesh Diagnosis - Abdominal pain, unspecified yogesh - Obesity, unspecified yogesh Followup: yogesh - With: Private Physician - When: 2 - 3 days - Reason: Recheck today's complaints, Continuance of care, Re-evaluation by your physician Followup: yogesh - With: - When: 2 - 3 days - Reason: Recheck today's complaints, Re-evaluation by your physician Discharge Instructions: - Discharge Summary Sheet yogesh - Abdominal Pain, Adult yogesh - Obesity, Adult yogesh Forms: - Medication Reconciliation Form [facility] - Thank You Letter [facility] - Antibiotic Education [facility] - Prescription Opioid Use [facility] Prescriptions: - Pepcid 20 mg Oral Tablet - take 1 tablet by ORAL route every 12 hours for 10 days; 20 tablet; Refills: 0, [facility] Product Selection Permitted - Zofran 4 mg Oral Tablet - take 1 tablet by ORAL route every 12 hours As needed; 20 tablet; Refills: 0, [facility] Product Selection Permitted - dicyclomine 20 mg Oral Tablet - take 1 tablet by ORAL route 4 times per day; 28 tablet; Refills: 0, Product [facility] Selection Permitted Signatures: Dispatcher [employer] MS Mulugeta, Chon, MD MD yogesh Calcote, Leigh, RN RN vc1
[2021-12-03 07:08] VITALS: BP 133/82; TEMP 98.8; O2SAT 97
--- NOTE | 2021-12-03 18:44 | RAD REPORT ---
EXAM DESCRIPTION: CT Abdomen and Pelvis With Intravenous Contrast CLINICAL HISTORY: The patient is 26 years old and is Male; Abdominal pain, acute, nonlocalized TECHNIQUE: Axial computed tomography images of the abdomen and pelvis with intravenous contrast. S agittal and coronal reformatted images were created and reviewed. This CT exam was performed using one or more of the following dose reduction techniques: automated exposure control, adjustment of t he mA and/or kV according to patient size, and/or use of iterative reconstruction technique. COMPARISON: No relevant prior studies available. FINDINGS: Lung bases: Minimal linear scarring left lower lobe. ABDOMEN: Liver: Unremarkable. No mass. Gallbladder and bile ducts: Unremarkable. No calcified stones. No ductal dilation. Pancreas: No findings to suggest acute pancreatitis. No mass visualized. No ductal dilation. Spleen: Mild splenomegaly. Adrenals: Unremarkable. No mass. Kidneys and ureters: Unremarkable. No solid mass. No hydronephrosis. Stomach and bowel: No bowel dilatation or obstruction. No bowel wall thickening. PELVIS: Appendix: The visualized appendix is normal. No pericecal inflammation to suggest acute appendici tis. Bladder: Unremarkable. No mass. Reproductive: Unremarkable as visualized. ABDOMEN and PELVIS: Intraperitoneal space: Unremarkable. No free air. No significant fluid collection. Bones/joints: No acute fracture. No dislocation. Soft tissues: Unremarkable. Vasculature: Unremarkable. No abdominal aortic aneurysm. Lymph nodes: Non-pathologically enlarged inguinal lymph nodes. IMPRESSION: No acute obstructive or inflammatory process identified. Normal appendix. Mild splenomegaly. Electronically signed by: Mindi Estrada MD 12/03/2021 5:59 AM CDT Due to temporary technical issues with the PACS/Fluency reporting system, reports are being signed by the in house radiologists without review as a courtesy to insure prompt reporting. The interpreting radiologist is fully responsible for the content of the report.
--- NOTE | 2021-12-03 19:58 | RAD REPORT ---
EXAM DESCRIPTION: Abdomen Exam Limited US Abdomen Limited US Right Upper Abdomen CLINICAL HISTORY: Abdominal pain COMPARISON: CT Abdomen/Pelvis 12/03/2021 TECHNIQUE: Grayscale, color Doppler, and duplex Doppler images of right upper abdomen. FINDINGS: No significant free fluid. Liver parenchyma grossly unremarkable. Common bile duct measuring 4 mm diameter and within normal limits. No intra or extrahepatic biliary ductal dilatation. Gallbladder unremarkable without evidence of stones or inflammation. Negative sonographic Guillen's sign. IMPRESSION: Unremarkable US right upper abdomen. Electronically signed by: Jamal Sutherland MD 12/03/2021 6:19 AM CDT Due to temporary technical issues with the PACS/Fluency reporting system, reports are being signed by the in house radiologists without review as a courtesy to insure prompt reporting. The interpreting radiologist is fully responsible for the content of the report.
== END 2021-12-03 07:01 | disposition home or self-care (01) ==
LOC: ER 03:36
DX: R10.10 Upper abdominal pain, unspecified (principal); E66.9 Obesity, unspecified
CPT/HCPCS: 87070; 85025; 36415; 87081; 81003; 83690; 80053; 74177; 76705; Q9967; J2270; J7030; J2405; J3490; 96374; 96375; 99284

== ENCOUNTER 2022-05-18 05:35 | Emergency (ER) | payer OTHER ==
--- OUTSIDE RECORDS SUMMARY | 2022-05-18 05:39 | XMS REPORT | Continuity of Care Document ---
:1995 Author Organization [facility] t Address [address] [place] [address] Care Team Providers Name Role Phone Pcp, Patient Does Not Have A Primary Care Physician [id number] GENI RIVERA Attending Clinician Unavailable Miguel LAWSON, Geni Attending Clinician Unknown, Attending Attending Clinician Unavailable Elizabeth Puente PA-C Attending Clinician Daniela Hayes RN Attending Clinician Unavailable ELIZABETH PUENTE Attending Clinician Unavailable Doctor Unassigned, [place] Attending Clinician Unavailable SARAH BETH SAMPSON Attending Clinician Unavailable Sarah Beth Sampson MD Attending Clinician MORENA REARDON Attending Clinician Unavailable DANY GARCIA Attending Clinician Unavailable SULTANA OLGUIN Attending Clinician Unavailable Payers Payer Name Policy Type Policy Number Effective Date Expiration Date Bernabe TORREZ [facility] [id number] 2021 00:00:00 Problems Condition Condition Condition Status Onset Resolution Last Treating Co mments Source Name Details Category Date Date Treatment Clinician Date No known No known Disease Unive rs active active ity of problems problems [facility] Allergies, Adverse Reactions, Alerts Allergy Allergy Status Severity Reaction(s) Onset Inactive Treating Comm ents Source Name Type Date Date Clinician NO KNOWN Drug Active Univers ALLERGIE Class ity of S [facility] Social History Social Habit Start Date Stop Date Quantity Comments Source Exposure to 2022-05-07 2022-05-17 Not sure [facility] SARS-CoV-2 (event) 00:00:00 17:46:00 Medica l Branch Sex Ass[birth year] At [birth year] [facility] [place] 00:00:00 00:00:00 Medical Branch Smoking Status Start Date Stop Date Source [facility] Medications Ordered Filled Start Stop Current Ordering Indication Dosage Frequency Signature Comments Components Source Medication Medication Date Date Medication? Clinician (SIG) Name Name busPIRone 2021-08 Yes 10mg Take 10 mg Un sukhdeep 10 mg 0-15 by mouth ity of tablet 17:59: in the [place] 42 morning Medical and 10 mg Branch in the evening. benzonatate 2021-08 Yes [id number] 200mg Take 2 Univers 100 mg 0-15 capsules ity of capsule 00:00: by mouth [place] 00 every 8 Medical (eight) Branch hours as needed for Cough. guaiFENesin 2021-08 Yes [id number] 400mg Take 1 Univers 400 mg 0-15 tablet by ity of tablet 00:00: mouth [place] 00 every 4 Medical (four) Branch hours as needed for Cough. albuterol 2021-08 Yes [id number] 2{puff} Inhale 2 Univers 90 0-15 Puffs ity of mcg/actuati 00:00: every 6 [place] as on inhaler 00 (six) Medical hours as Branch needed for Chest tightness. fluticasone Yes [id number] 2{spray Use 2 Univers propionate 3-13 } Sprays in ity of 50 00:00: each [place] mcg/actuati 00 nostril Medic al on nasal daily. Branch spray fluticasone Yes [id number] 2{spray Use 2 Univers propionate 3-13 } Sprays in ity of 50 00:00: each [place] mcg/actuati 00 nostril Medic al on nasal daily. Branch spray bromphenira Yes [id number] 10mL Take 10 mL Univers mine-pseudo 3-13 by mouth 3 it y of ephedrine-D 00:00: (three) [place] as M (BROMFED 00 times Medical DM) 2-30-10 daily as Bran ch mg/5 mL needed for syrup Cough. fluticasone Yes [id number] 2{spray Use 2 Univers propionate 3-13 } Sprays in ity of 50 00:00: each [place] mcg/actuati 00 nostril Medic al on nasal daily. Branch spray bromphenira Yes [id number] 10mL Take 10 mL Univers mine-pseudo 3-13 by mouth 3 it y of ephedrine-D 00:00: (three) [place] M (BROMFED 00 times Medical DM) 2-30-10 daily as Bran ch mg/5 mL needed for syrup Cough. fluticasone Yes [id number] 2{spray Use 2 Univers propionate 3-13 } Sprays in ity of 50 00:00: each [place] mcg/actuati 00 nostril Medic al on nasal daily. Branch spray bromphenira Yes [id number] 10mL Take 10 mL Univers mine-pseudo 3-13 by mouth 3 it y of ephedrine-D 00:00: (three) [place] M (BROMFED 00 times Medical DM) 2-30-10 daily as Bran ch mg/5 mL needed for syrup Cough. bromphenira No [id number] 10mL Take 10 mL Univers mine-pseudo 3-13 10-15 by mouth 3 i ty of ephedrine-D 00:00: 00:[place] (three[place] (BROMFED 00 :00 times Medical DM) 2-30-10 daily as Bran ch mg/5 mL needed for syrup Cough. bromphenira 2020-08 Yes [id number] 5mL Take 5 mL Univers mine-pseudo 1-21 by mouth 4 it y of ephedrine-D 00:00: (four[place] (BROMF[place] 00 times Medical DM) 2-30-10 daily as Bran ch mg/5 mL needed for syrup Cold symptoms. benzonatate 2020-08 Yes [id number] 100mg Take 1 Univers 100 mg 1-21 capsule by ity of capsule 00:00: mouth 3 [place] 00 (three) Medical times Branch daily as needed for Cough. bromphenira 2020-08 Yes [id number] 5mL Take 5 mL Univers mine-pseudo 1-21 by mouth 4 it y of ephedrine-D 00:00: (four[place] (BROMFED 00 times Medical DM) 2-30-10 daily as Bran ch mg/5 mL needed for syrup Cold symptoms. benzonatate 2020-08 Yes [id number] 100mg Take 1 Univers 100 mg 1-21 capsule by ity of capsule 00:00: mouth 3 [place] 00 (three) Medical times Branch daily as needed for Cough. bromphenira 2020-08 Yes [id number] 5mL Take 5 mL Univers mine-pseudo 1-21 by mouth 4 it y of ephedrine-D 00:00: (four[place] (BROMFED 00 times Medical DM) 2-30-10 daily as Bran ch mg/5 mL needed for syrup Cold symptoms. bromphenira 2020-08 Yes [id number] 5mL Take 5 mL Univers mine-pseudo 1-21 by mouth 4 it y of ephedrine-D 00:00: (four[place] M (BROMFED times Medical DM) 2-30-10 daily as Bran ch mg/5 mL needed for syrup Cold symptoms. bromphenira 2020-08 Yes [id number] 5mL Take 5 mL Univers mine-pseudo 1-21 by mouth 4 it y of ephedrine-D 00:00: (four[place] (BROMFED 00 times Medical DM) 2-30-10 daily as Bran ch mg/5 mL needed for syrup Cold symptoms. bromphenira 2020-08 Yes [id number] 5mL Take 5 mL Univers mine-pseudo 1-21 by mouth 4 it y of ephedrine-D 00:00: (four[place] (BROMFED 00 times Medical DM) 2-30-10 daily as Bran ch mg/5 mL needed for syrup Cold symptoms. benzonatate 2020-08 No [id number] 100mg Take 1 Univers 100 mg 1-21 [...] 06/21/21 at 0600, STAT benzonatate 2020-08 Yes [id number] 100mg Take 1 Univers 100 mg 1-19 capsule by ity of capsule 00:00: mouth 3 [place] 00 (three) Medical times Branch daily as needed for Cough. benzonatate 2020-08 Yes [id number] 100mg Take 1 Univers 100 mg 1-19 capsule by ity of capsule 00:00: mouth 3 [place] 00 (three) Medical times Branch daily as needed for Cough. benzonatate 2020-08 Yes [id number] 100mg Take 1 Univers 100 mg 1-19 capsule by ity of capsule 00:00: mouth 3 [place] 00 (three) Medical times [place] daily as needed for Cough. benzonatate 2020-08- No [id number] 100mg Take 1 Univers 100 mg 1-19 -13 capsule by ity of capsule 00:00: 00:00 mouth 3 [place] 00 :00 (three) Medical times [place] daily as needed for Cough. Vital Signs Vital Name Observation Time Observation Value Comments Source Systolic blood 2022-05-17 23:25:00 162 [facility]Hg[facility] 2022-05-17 23:25:00 74 [facility]Hg[facility] 2022-05-17 23:01:00 96 /min [facility] Body temperature 2022-05-17 23:01:00 36.5 Yanet [facility] Body height 2022-05-17 23:01:00 188 cm [facility] Body weight 2022-05-17 23:01:00 184.342 kg [facility] BMI 2022-05-17 23:01:00 52.18 kg/m2 [facility] Oxygen saturation in 2022-05-17 23:01:00 95 /min [facility] Arterial blood by [facility] [place] [place] Pulse oximetry Branch Systolic blood 2021-10-13 15:39:00 137 mm[Hg] Univer [facility]ity [facility] Diastolic blood 2021-10-13 15:39:00 82 mm[Hg] Unive [facility] Branch BMI 2021-10-13 15:36:00 53.51 kg/m2 [facility] [place] [facility] Oxygen saturation in 2021-10-13 15:36:00 97 /min University of Arterial blood by [facility] [place] [place] Pulse oximetry Branch Heart rate 2021-10-13 15:36:00 83 /min [facility] [place] [facility] Body temperature 2021-10-13 15:36:00 36.67 Yanet [facility] [place] [facility] Respiratory rate 2021-10-13 15:36:00 18 /min [facility] [place] [facility] Body height 2021-10-13 15:36:00 188 cm [facility] [place] [facility] Body weight 2021-10-13 15:36:00 189.059 kg [facility] [place] [facility] Systolic blood 2021-06-23 14:47:00 148 mm[Hg] Univer sity of pressure [place] [facility] Diastolic blood 2021-06-23 14:47:00 100 mm[Hg] Unive rsity of pressure [place] [facility] Heart rate 2021-06-23 14:47:00 89 /min [facility] [place] [facility] Body temperature 2021-06-23 14:47:00 36.89 Yanet [facility] [place] [facility] Respiratory rate 2021-06-23 14:47:00 18 /min [facility] [place] [facility] Oxygen saturation in 2021-06-23 14:47:00 100 /min University of Arterial blood by [facility] [place] [place] Pulse oximetry Branch Body height 2021-06-23 13:07:00 188 cm [facility] [place] [facility] Body weight 2021-06-23 13:07:00 181.439 kg [facility] [place] [facility] BMI 2021-06-23 13:07:00 51.36 kg/m2 [facility] [place] [facility] Systolic blood 2021-06-21 12:33:00 125 mm[Hg] Univer sity of pressure [place] [facility] Diastolic blood 2021-06-21 12:33:00 71 mm[Hg] Unive rsity of pressure [place] [facility] Heart rate 2021-06-21 12:33:00 96 /min [facility] [place] [facility] Body temperature 2021-06-21 12:33:00 37.06 Yanet [facility] Respiratory rate 2021-06-21 12:33:00 18 /min [facility] Oxygen saturation in 2021-06-21 12:33:00 98 /min [facility] blood by [facility] [place] [place] Pulse oximetry [place] Body height 2021-06-21 11:33:00 188 cm [facility] Body weight 2021-06-21 11:33:00 181.439 kg [facility] BMI 2021-06-21 11:33:00 51.36 kg/m2 [facility] Procedures Procedure Date / Time Performed Performing Clinician Sourc e POCT MOLECULAR FLU 2022-05-17 23:15:00 Unknown, Attending [facility] POCT MOLECULAR STREP 2022-05-17 23:14:00 Unknown, Attending [facility] POCT MOLECULAR FLU 2021-10-13 15:48:00 Unknown, Attending [facility] POCT MOLECULAR STREP 2021-10-13 15:45:00 Unknown, Attending [facility] ASSIGNMENT OF BENEFITS 2021-10-13 15:31:01 Doctor Unassigned, No [facility] RAPID STREP SCREEN FOR 2021-06-23 13:44:00 Sarah Beth Sampson [facility] Encounters Start End Encounter Admission Attending Care Care Encounter Source Date/Time Date/Time Type Type Clinicians Facility Department ID 2022-05-17 2022-05-17 Outpatient R MIGUEL [facility] [id number] [facility] 18:00:00 18:36:21 GENI bella [facility] 2022-05-17 2022-05-17 Urgent Geni Rivera [facility] [id number] Univers 18:00:00 18:36:21 Care Unknown, Attending [facility] [id number] [place] [id number] [place] TL?BLEA [id number] [address] MEDICAL OFFICE BUILDING 2021-11-09 2021-11-09 TERELL Jackson [id number] Univers 00:00:00 00:00:00 Elizabeth PEDIATRIC [id number] it[id number] [id number] [address] CARE CLINIC 2021-10-14 2021-10-14 Letter KYLAH Hayes [id number] Univers 00:00:00 00:00:00 (Out) Daniela EVANS [id number] it y of HOSPITAL [id number] [place] as [id number] [facility] 019 Branch 2021-10-13 2021-10-13 Outpatient R CINDI [facility] [id number] Univers 10:45:00 11:10:45 ELIZABETH bella [facility] 2021-10-13 2021-10-13 Urgent Elizabeth Puente [id number] Univers 10:45:00 11:10:45 Care Unknown, Attending PEDIATRIC [id number]. 10 [id number] [id number] [address] CARE [facility] 2021-10-13 2021-10-13 Orders Doctor MONTERO [id number] Univers 00:00:00 00:00:00 Only Unassigned, NATHAN [id number] ity of [place] [facility] [id number] [place] as [id number] [place] [address] Branch 2021-06-23 2021-06-23 Emergency X CAMILLA [facility] ERT [id number] Univers 07:02:00 08:49:00 SARAH BETH bella [facility] 2021-06-23 2021-06-23 Emergency Camilla [facility] [id number] Univers 07:02:00 08:49:00 [facility] [id number] it y [id number] [id number] [facility] 014 Branch (CLC) 2021-06-21 2021-06-21 Emergency X WILMER [facility] ERT [id number] Univers 05:23:00 06:34:00 MORENA bella [facility] 2021-06-21 2021-06-21 Emergency Wilmer MSIVÁN [id number] Univers 05:23:00 06:34:00 [facility] [id number] it y of [place] [id number] Steve [place] [id number] [address] ([employer]) 2020-12-12 2020-12-12 Emergency E DANY GARCIA [facility] [id number] 11:12:00 12:11:[address] [facility] [facility] 2020-12-09 2020-12-09 Emergency E SHARIF [facility] [id number] 07:13:00 09:52:00 , SULTA[address] [facility] Results Test Description Test Time Test Comments Results Result Comments Source POCT MOLECULAR FLU 2022-05-17 23:27:42 Test Item Value Reference Range Interpretation Comme nts POCT Molecular FluA (test code = 45954-5) Negative Negative POCT Molecular FluB (test code = 08333-7) Negative Negative Lab Interpretation (test code = 96753-6) Normal [facility] MOLECULAR [id number] 23:22:56 Test Item Value Reference Range Interpretation Comments POCT Molecular Strep (test code = Negative Negative 24382-2) Lab Interpretation (test code = Normal 97736-2) [facility] MOLECULAR [id number] 15:59:44 Test Item Value Reference Range Interpretation Comments POCT Molecular FluA (test code = Negative Negative 19754-2) POCT Molecular FluB (test code = Negative Negative 27712-4) Lab Interpretation (test code = Normal 99176-9) [facility] MOLECULAR [id number] 15:53:01 Test Item Value Reference Range Interpretation Comments POCT Molecular Strep (test code = Negative Negative 67902-3) Lab Interpretation (test code = Normal 01198-7) [facility] [place] [facility]
[2022-05-18] MEDS ORDERED: ACETAMINOPHEN 500 MG TAB ONE (07:18)
--- NOTE | 2022-05-18 07:18 | RAD REPORT ---
EXAM DESCRIPTION: RAD - Chest Pa And Lat (2 Views) - 05/18/2022 7:07 am CLINICAL HISTORY: fever COMPARISON: No comparisons FINDINGS: Lines: None. Lungs: No evidence of edema or pneumonia. Pleural: No significant pleural effusions or pneumothorax. Cardiac: The heart size is within normal limits. Mediastinum: Within normal limits. Bones: No acute fractures. Other: None IMPRESSION: No acute cardiopulmonary disease.
--- NOTE | 2022-05-18 07:34 | ER ---
Nurse's Notes [facility] Name: Ziyad Parker Age: 26 yrs Sex: Male : 1995 Arrival Date: 05/18/2022 Time: 05:39 Bed 2 Private MD: Diagnosis: Cough;Acute upper respiratory infection, unspecified;Myalgia Presentation: 05/18 05:48 Chief complaint: Patient states: "I have had a productive cough and sore throat the tw5 started yesterday. The coughing is making my chest hurt. I would usually just got to the [place] but they are not open on weekend.". Coronavirus screen: Vaccine status: Patient reports receiving the 2nd dose of the covid vaccine. Moderna. Ebola Screen: Patient negative for fever greater than or equal to 101.5 degrees Fahrenheit, and additional compatible Ebola Virus Disease symptoms Patient denies exposure to infectious person. Patient denies travel to an Ebola-affected area in the 21 days before illness onset. Initial Sepsis Screen: Does the patient meet any 2 criteria? No. Patient's initial sepsis screen is negative. Does the patient have a suspected source of infection? No. Patient's initial sepsis screen is negative. Risk Assessment: Do you want to hurt yourself or someone else? Patient reports no desire to harm self or others. Onset of symptoms was May 17, 2022. 05:48 Method Of Arrival: Ambulatory tw5 05:48 Acuity: EDUIN 3 tw5 Triage Assessment: 05:50 General: Appears in no apparent distress. obese, Behavior is appropriate for age. Pain: tw5 Pain currently is 6 out of 10 on a pain scale. EENT: Throat. Historical: - Allergies: 05:50 No Known Allergies; tw5 - Home Meds: 05:50 buspirone 5 mg Oral tab 1 tab 2 times per day [Active]; tw5 - PMHx: 05:50 Sleep Apnea; tw - PSHx: 05:50 None; tw5 - Immunization history:: Flu vaccine is not up to date. - Social history:: Smoking status: Patient denies any tobacco usage or history of. Assessment: 05:49 General: Appears in no apparent distress. comfortable, Behavior is calm, cooperative, jb4 appropriate for age. Pain: Complains of pain in chest Pain does not radiate. Pain currently is 4 out of 10 on a pain scale. Aggravated by. Neuro: Level of Consciousness is awake, alert, obeys commands, Oriented to person, place, time, situation. Cardiovascular: Patient's skin is warm and dry. Respiratory: Airway is patent Respiratory effort is even, unlabored, Respiratory pattern is regular, symmetrical, Breath sounds are clear bilaterally. GI: No signs and/or symptoms were reported involving the gastrointestinal system. : No signs and/or symptoms were reported regarding the genitourinary system. EENT: Throat is clear is reddened with gag reflex present. Derm: Skin is intact, Skin is pink, warm \\T\\ dry. Musculoskeletal: Circulation, motion, and sensation intact. Range of motion: intact in all extremities. Vital Signs: 05:48 BP 141 / 72; Pulse 89; Resp 18; Temp 98.2; Pulse Ox 95% ; Weight 183.7 kg; Height 6 ft. tw5 2 in. (187.96 cm); Pain 6/10; 05:48 Body Mass Index 52.00 (183.70 kg, 187.96 cm) tw5 ED Course: 05:39 Patient arrived in ED. bp1 05:47 Sae Larsen DO is Attending Physician. ms3 05:50 Triage completed. tw5 05:50 Arm band placed on. tw5 06:12 Gregorio Flynn, HELENA is Primary Nurse. jb4 07:09 Chest Pa And Lat (2 Views) XRAY In Process Unspecified. EDMS 07:09 Primary Nurse role handed off by Gregorio Flynn, RN mb8 07:09 Raghavendra Emery, RN is Primary Nurse. mb8 07:13 Report received from Gregorio Paulino RN. mb8 07:31 Attending Physician role handed off by Sae Larsen DO yogesh 07:31 Chon Dalal MD is Attending Physician. yogesh 07:32 Attending Physician role handed off by Chon Dalal MD ms3 07:32 Sae Larsen DO is Attending Physician. ms3 07:32 Vikash Huggins DO is Referral Physician. ms3 07:33 Attending Physician role handed off by Sae Larsen DO yogesh 07:33 Chon Dalal MD is Attending Physician. yogesh 07:34 Sae Larsen DO is Attending Physician. ms3 07:43 No provider procedures requiring assistance completed. Patient did not have IV access mb8 during this emergency room visit. Administered Medications: 07:20 Drug: Tylenol 1000 mg Route: PO; mb8 :44 Follow up: Response: No adverse reaction mb8 Medication: :44 VIS not applicable for this client. mb8 Outcome: 07:33 Discharge ordered by . ms3 07:43 Discharged to home ambulatory, with family. mb8 :43 Condition: stable 07:43 Discharge instructions given to patient, Instructed on discharge instructions, follow up and referral plans. medication usage, Demonstrated understanding of instructions, follow-up care, medications, Prescriptions given X 1. :44 Patient left the ED. mb8 Signatures: Dispatcher [employer] EDMS Chon Dalal MD MD cha Bryson, James, RN RN jb4 Sae Larsen DO DO ms3 Vane Mclean Tiffany tw5 Raghavendra Emery, RN RN mb8
--- NOTE | 2022-05-18 07:34 | EDPHYS ---
Physician Documentation [facility] Name: Ziyad Parker Age: 26 yrs Sex: Male : 1995 Arrival Date: 05/18/2022 Time: 05:39 Bed 2 Private MD: ED Physician Sae Larsen HPI: 05/18 06:07 This 26 yrs old Male presents to ER via Ambulatory with complaints of Cough, Sore ms3 Throat, Chest Pain. 06:07 26-year-old male with past medical history of sleep apnea presents for sore throat and ms3 cough that began yesterday. Patient endorses is nausea. Patient denies fevers, chills, vomiting. Patient states he took ibuprofen for body aches. Patient denies pain at this time. Patient denies alleviating or inciting factors.. Historical: - Allergies: 05:50 No Known Allergies; tw5 - Home Meds: 05:50 buspirone 5 mg Oral tab 1 tab 2 times per day [Active]; tw - PMHx: 05:50 Sleep Apnea; tw - PSHx: 05:50 None; tw5 - Immunization history:: Flu vaccine is not up to date. - Social history:: Smoking status: Patient denies any tobacco usage or history of. ROS: 06:07 Constitutional: Negative for fever, and chills. Neck: Negative for injury, pain, and ms3 swelling, Cardiovascular: Negative for chest pain, and palpitations. 06:07 Abdomen/GI: Negative for abdominal pain, nausea, vomiting, diarrhea, and constipation, MS/Extremity: Negative for injury and deformity, Skin: Negative for injury, rash, and discoloration, Neuro: Negative for headache, weakness, numbness, tingling. Psych: Negative for depression, anxiety, suicide ideation, homicidal ideation, and hallucinations. 06:07 Respiratory: Positive for cough. 06:07 All other systems are negative. Exam: 06:07 Constitutional: This is a well developed, well nourished patient who is awake, alert, ms3 and in no acute distress. Head/Face: Normocephalic, atraumatic. Neck: Trachea midline, no cervical lymphadenopathy. Supple, full range of motion without nuchal rigidity, or vertebral point tenderness. No Meningismus. Chest/axilla: Normal chest wall appearance and motion. Nontender with no deformity. Cardiovascular: Regular rate and rhythm with a normal S1 and S2. No gallops, murmurs, or rubs. Normal PMI, no JVD. No pulse deficits. Respiratory: Lungs have equal breath sounds bilaterally, clear to auscultation and percussion. No rales, rhonchi or wheezes noted. No increased work of breathing, no retractions or nasal flaring. Abdomen/GI: Soft, non-tender, with normal bowel sounds. No distension or tympany. No guarding or rebound. No evidence of tenderness throughout. MS/ Extremity: Pulses equal, no cyanosis. Neurovascular intact. Full, normal range of motion. Psych: Awake, alert, with orientation to person, place and time. Behavior, mood, and affect are within normal limits. Vital Signs: 05:48 BP 141 / 72; Pulse 89; Resp 18; Temp 98.2; Pulse Ox 95% ; Weight 183.7 kg; Height 6 ft. tw5 2 in. (187.96 cm); Pain 6/10; 05:48 Body Mass Index 52.00 (183.70 kg, 187.96 cm) tw5 MDM: 06:06 Patient medically screened. ms3 06:07 Differential Diagnosis: Bronchitis Influenza Upper Respiratory Infection Viral Syndrome ms3 Pneumonia. Data reviewed:. 07:40 Counseling: I had a detailed discussion with the patient and/or guardian regarding: the ms3 historical points, exam findings, and any diagnostic results supporting the discharge/admit diagnosis, lab results, radiology results, the need for outpatient follow up, to return to the emergency department if symptoms worsen or persist or if there are any questions or concerns that arise at home. ED course: Discussed x-ray and labs with patient. Patient to follow-up with Dr. Huggins in 2 to 3 days. Patient understands agrees with plan. All questions were answered. Return precautions discussed include worsening symptoms, or if concerns. On reevaluation patient is alert and oriented x4, in no apparent distress, nontoxic, speaking full sentences, ambulatory in the emergency department. 05/18 06:07 Order name: Flu; Complete Time: 07:06 ms3 05/18 06:07 Order name: Chest Pa And Lat (2 Views) XRAY; Complete Time: 07:24 ms3 05/18 06:12 Order name: SARS-COV-2 RT PCR (Document "Date of Onset" if Symptomatic); Complete Time: jb4 07:13 Administered Medications: 07:20 Drug: Tylenol 1000 mg Route: PO; mb8 07:44 Follow up: Response: No adverse reaction mb8 Disposition Summary: 05/18/22 07:33 Discharge Ordered Location: Home ms3 Condition: Stable ms3 Diagnosis - Cough ms3 - Acute upper respiratory infection, unspecified ms3 - Myalgia ms3 Followup: ms3 - With: Vikash Huggins DO - When: 2 - 3 days - Reason: Recheck today's complaints Discharge Instructions: - Discharge Summary Sheet ms3 - Upper Respiratory Infection, Adult ms3 Forms: - Medication Reconciliation Form ms3 - Thank You Letter ms3 - Antibiotic Education ms3 - Prescription Opioid Use ms3 Prescriptions: - Tessalon Perles 100 mg Oral Capsule - take 1 capsule by ORAL route every 8 hours As needed; 15 capsule; Refills: 0, ms3 Product Selection Permitted Signatures: Dispatcher [employer] Sae Gooden DO DO ms3 Cristina Acuna tw5 Raghavendra Emery, RN RN mb8
[2022-05-18 07:49] VITALS: BP 141/72; TEMP 98.2; O2SAT 95
== END 2022-05-18 07:44 | disposition home or self-care (01) ==
LOC: ER 05:35
DX: J06.9 Acute upper respiratory infection, unspecified (principal); M79.10 Myalgia, unspecified site; Z20.822 Contact with and (suspected) exposure to COVID-19
CPT/HCPCS: 87804 ×2; 71046; 99283; U0003

== ENCOUNTER 2022-07-12 11:48 | Emergency (ER) | payer OTHER ==
--- OUTSIDE RECORDS SUMMARY | 2022-07-12 11:52 | XMS REPORT | Continuity of Care Document ---
:1995 Author Organization [facility] t Address [address] [place] [address] Care Team Providers Name Role Phone Pcp, Patient Does Not Have A Primary Care Physician [id number] Geni Rivera MD Attending Clinician Sanjuana Hardy RN Attending Clinician Unavailable GENI RIVERA Attending Clinician Unavailable Unknown, Attending Attending Clinician Unavailable Elizabeth Puente PA-C Attending Clinician Daniela Hayes RN Attending Clinician Unavailable ELIZABETH PUENTE Attending Clinician Unavailable Doctor Unassigned, [place] Attending Clinician Unavailable SARAH BETH SAMPSON Attending Clinician Unavailable Sarah Beth Sampson MD Attending Clinician MORENA GUILLEN Attending Clinician Unavailable DANY GARCIA Attending Clinician Unavailable SULTANA OLGUIN Attending Clinician Unavailable Payers Payer Name Policy Type Policy Number Effective Date Expiration Date S ource Problems Condition Condition Condition Status Onset Resolution Last Treating Co mments Source Name Details Category Date Date Treatment Clinician Date No known No known Disease Unive rs active active ity of problems problems [facility] Allergies, Adverse Reactions, Alerts Allergy Allergy Status Severity Reaction(s) Onset Inactive Treating Comm ents Source Name Type Date Date Clinician NO KNOWN Drug Active Univers ALLERGIE Class ity of S [facility] Social History Social Habit Start Date Stop Date Quantity Comments Source Exposure to 2022-05-07 2022-05-17 Not sure [facility] SARS-CoV-2 (event) 00:00:00 17:46:00 Medica l Branch Sex Assigned At [birth year] [facility] y of [place] 00:00:00 00:00:00 Medical Branch Smoking Status Start Date Stop Date Source Tobacco smoking consumption [facility] Medical unknown Branch Medications Ordered Filled Start Stop Current Ordering Indication Dosage Frequency Signature Comments Components Source Medication Medication Date Date Medication? Clinician (SIG) Name Name busPIRone 2021-08 Yes 10mg Take 10 mg Un sukhdeep 10 mg 0-15 by mouth ity of tablet 17:59: in the [place] [address] morning Medical and 10 mg Branch in the evening. busPIRone 2021-08 Yes 10mg Take 10 mg Un sukhdeep 10 mg 0-15 by mouth ity of tablet 17:59: in the [place] [address] morning Medical and 10 mg Branch in the evening. busPIRone 2021-08 Yes 10mg Take 10 mg Un sukhedep 10 mg 0-15 by mouth ity of tablet 17:59: in the [place] [address] morning Medical and 10 mg Branch in the evening. benzonatate 2021-08 Yes [id number] 200mg Take 2 Univers 100 mg 0-15 capsules ity of capsule 00:00: by mouth [place] [address] every 8 Medical (eight) Branch hours as needed for Cough. guaiFENesin 2021-08 Yes [id number] 400mg Take 1 Univers 400 mg 0-15 tablet by ity of tablet 00:00: mouth [place] [address] every 4 Medical (four) Branch hours as needed for Cough. albuterol 2021-08 Yes [id number] 2{puff} Inhale 2 Univers 90 0-15 Puffs ity of mcg/actuati 00:00: every 6 [place] as on inhaler 00 (six) Medical hours as Branch needed for Chest tightness. benzonatate 2021-08 Yes [id number] 200mg Take 2 Univers 100 mg 0-15 capsules ity of capsule 00:00: by mouth [place] [address] every 8 Medical (eight) Branch hours as needed for Cough. guaiFENesin 2021-08 Yes [id number] 400mg Take 1 Univers 400 mg 0-15 tablet by ity of tablet 00:00: mouth [place] 00 every 4 Medical (four) Branch hours as needed for Cough. albuterol 2021-08 Yes [id number] 2{puff} Inhale 2 Univers 90 0-15 Puffs ity of mcg/actuati 00:00: every 6 [place] as on inhaler 00 (six) Medical hours as Branch needed for Chest tightness. benzonatate 2021-08 Yes [id number] 200mg Take 2 Univers 100 mg 0-15 capsules ity of capsule 00:00: by mouth [place] 00 every 8 Medical (eight) Branch hours as needed for Cough. guaiFENesin 2021-08 Yes [id number] 400mg Take 1 Univers 400 mg 0-15 tablet by ity of tablet 00:00: mouth [place] 00 every 4 Medical (four) Branch hours as needed for Cough. albuterol 2021-08 Yes [id number] 2{puff} Inhale 2 Univers 90 0-15 Puffs ity of mcg/actuati 00:00: every 6 [place] on inhaler 00 (six) Medical hours as Branch needed for Chest tightness. fluticasone Yes [id number] 2{spray Use 2 Univers propionate 3-13 } Sprays in ity of 50 00:00: each [place] mcg/actuati 00 nostril Medic al on nasal daily. Branch spray fluticasone Yes [id number] 2{spray Use 2 Univers propionate 3-13 } Sprays in ity of 50 00:00: each [place] mcg/actuati 00 nostril Medic al on nasal daily. Branch spray fluticasone Yes [id number] 2{spray Use 2 Univers propionate 3-13 } Sprays in ity of 50 00:00: each [place] mcg/actuati 00 nostril Medic al on nasal daily. Branch spray fluticasone Yes [id number] 2{spray Use 2 Univers propionate 3-13 } Sprays in ity of 50 00:00: each [place] mcg/actuati 00 nostril Medic al on nasal daily. Branch spray bromphenira Yes [id number] 10mL Take 10 mL Univers mine-pseudo 3-13 by mouth 3 it y of ephedrine-D 00:00: (three) [place] M (BROMFED 00 times Medical DM) 2-30-10 daily as Bran ch mg/5 mL needed for syrup Cough. fluticasone Yes [id number] 2{spray Use 2 Univers propionate 3-13 } Sprays in ity of 50 00:00: each [place] mcg/actuati 00 nostril Medic al on nasal daily. Branch spray bromphenira Yes [id number] 10mL Take 10 mL Univers mine-pseudo 3-13 by mouth 3 it y of ephedrine-D 00:00: (three) [place] M (BROMFED 00 times Medical DM) 2-30-10 daily as Bran ch mg/5 mL needed for syrup Cough. fluticasone Yes [id number] 2{spray Use 2 Univers propionate 3-13 } Sprays in ity of 50 00:00: each [place] mcg/actuati 00 nostril Medic al on nasal daily. Branch spray bromphenira Yes [id number] 10mL Take 10 mL Univers mine-pseudo 3-13 by mouth 3 it y of ephedrine-D 00:00: (three) [place] M (BROMFED 00 times Medical DM) 2-30-10 daily as Bran ch mg/5 mL needed for syrup Cough. bromphenira No [id number] 10mL Take 10 mL Univers mine-pseudo 3-13 10-15 by mouth 3 i ty of ephedrine-D 00:00: 00:00 (three) [place] M (BROMFED 00 :00 times Medical DM) 2-30-10 daily as Bran ch mg/5 mL needed for syrup Cough. bromphenira 2020-08 Yes [id number] 5mL Take 5 mL Univers mine-pseudo 1-21 by mouth 4 it y of ephedrine-D 00:00: (four[place] (BROMF[place] 00 times Medical DM) 2-30-10 daily as Bran ch mg/5 mL needed for syrup Cold symptoms. bromphenira 2020-08 Yes [id number] 5mL Take 5 mL Univers mine-pseudo 1-21 by mouth 4 it y of ephedrine-D 00:00: (four[place] (BROMFED 00 times Medical DM) 2-30-10 daily as Bran ch mg/5 mL needed for syrup Cold symptoms. bromphenira 2020-08 Yes [id number] 5mL Take 5 mL Univers mine-pseudo 1-21 by mouth 4 it y of ephedrine-D 00:00: (four[place] M (BROMFED 00 times Medical DM) 2-30-10 daily as Bran ch mg/5 mL needed for syrup Cold symptoms. benzonatate 2020-08 Yes [id number] 100mg Take 1 Univers 100 mg 1-21 capsule by ity of capsule 00:00: mouth 3 [place] (three) Medical times Branch daily as needed for Cough. bromphenira 2020-08 Yes [id number] 5mL Take 5 mL Univers mine-pseudo 1-21 by mouth 4 it y of ephedrine-D 00:00: (four[place] [facility] 2-30-10 daily as Bran ch mg/5 mL needed for syrup Cold symptoms. benzonatate 2020-08 Yes [id number] 100mg Take 1 Univers 100 mg 1-21 capsule by ity of capsule 00:00: mouth 3 (three) Medical times Branch daily as needed for Cough. bromphenira 2020-08 Yes [id number] 5mL Take 5 mL Univers mine-pseudo 1-21 by mouth 4 it y of ephedrine-D 00:00: (four[place] ([facility] times Medical ) 2-30-10 daily as Bran ch mg/5 mL needed for syrup Cold symptoms. bromphenira 2020-08 Yes [id number] 5mL Take 5 mL Univers mine-pseudo 1-21 by mouth 4 it y of ephedrine-D 00:00: (four[place] ([facility] times Medical ) 2-30-10 daily as Bran ch mg/5 mL needed for syrup Cold symptoms. bromphenira 2020-08 Yes [id number] 5mL Take 5 mL Univers mine-pseudo 1-21 by mouth 4 it y of ephedrine-D 00:00: (four[place] [facility] DM) 2-30-10 daily as Bran ch mg/5 mL needed for syrup Cold symptoms. bromphenira 2020-08 Yes [id number] 5mL Take 5 mL Univers mine-pseudo 1-21 by mouth 4 it y of ephedrine-D 00:00: (four[place] M (BROMFED times Medical DM) 2-30-10 daily as Bran ch mg/5 mL needed for syrup Cold symptoms. benzonatate 2020-08- No [id number] 100mg Take 1 Univers 100 mg 1-21 03-13 capsule by ity of capsule 00:00: 00:00 mouth 3 [place] 00 :00 (three) Medical times Branch daily as needed for Cough. ibuprofen 2020-08 No 600mg 600 mg, Uni vers (IBU) [...] 06/21/21 at 0600, STAT benzonatate 2020-08 Yes [id number] 100mg Take 1 Univers 100 mg -19 capsule by ity of capsule 00:00: mouth 3 [place] 00 (three) Medical times Branch daily as needed for Cough. benzonatate 2020-08 Yes [id number] 100mg Take 1 Univers 100 mg -19 capsule by ity of capsule 00:00: mouth 3 [place] 00 (three) Medical times Branch daily as needed for Cough. benzonatate 2020-08 Yes [id number] 100mg Take 1 Univers 100 mg -19 capsule by ity of capsule 00:00: mouth 3 [place] 00 (three) Medical times Branch daily as needed for Cough. benzonatate 2020-08 No [id number] 100mg Take 1 Univers 100 mg 08-21- capsule by ity of capsule 00:00: 00:00 mouth 3 [place] 00 :00 (three) Medical times Branch daily as needed for Cough. Vital Signs Vital Name Observation Time Observation Value Comments Source Systolic blood 2022-05-17 23:25:00 162 mm[Hg] Univer sity [facility] Diastolic blood 2022-05-17 23:25:00 74 mm[Hg] [facility] Heart rate 2022-05-17 23:01:00 96 /min [facility] Body temperature 2022-05-17 23:01:00 36.5 Yanet [facility] height 2022-05-17 23:01:00 188 cm [facility] [place] [facility] Body weight 2022-05-17 23:01:00 184.342 kg [facility] [place] [facility] BMI 2022-05-17 23:01:00 52.18 kg/m2 [facility] [place] [facility] Oxygen saturation in 2022-05-17 23:01:00 95 /min University of Arterial blood by [place] [employer] [facility] Pulse oximetry Branch Systolic blood 2021-10-13 15:39:00 137 mm[Hg] Univer sity of pressure [place] [facility] Diastolic blood 2021-10-13 15:39:00 82 mm[Hg] Unive rsity of pressure [place] [facility] Heart rate 2021-10-13 15:36:00 83 /min [facility] [place] [facility] Body temperature 2021-10-13 15:36:00 36.67 Yanet Univ ersity [facility] [place] [facility] Respiratory rate 2021-10-13 15:36:00 18 /min Univ ers[facility] [place] [facility] Body height 2021-10-13 15:36:00 188 cm [facility] [place] [facility] Body weight 2021-10-13 15:36:00 189.059 kg [facility] [place] [facility] BMI 2021-10-13 15:36:00 53.51 kg/m2 [facility] [place] [facility] Oxygen saturation in 2021-10-13 15:36:00 97 /min University of Arterial blood by [place] [facility] [employer] [facility] Pulse oximetry Branch Systolic blood 2021-06-23 14:47:00 148 mm[Hg] Univer sity of pressure [place] [facility] Diastolic blood 2021-06-23 14:47:00 100 mm[Hg] Unive rsity of pressure [place] [facility] Heart rate 2021-06-23 14:47:00 89 /min [facility] [place] [facility] Body temperature 2021-06-23 14:47:00 36.89 Yanet Univ ers[facility] [place] [facility] Respiratory rate 2021-06-23 14:47:00 18 /min Univ ers[facility] [place] [facility] Oxygen saturation in 2021-06-23 14:47:00 100 /min University of Arterial blood by [place] [employer] [employer] [facility] Pulse oximetry Branch Body height 2021-06-23 13:07:00 188 cm [facility] [place] [facility] Body weight 2021-06-23 13:07:00 181.439 kg [facility] BMI 2021-06-23 13:07:00 51.36 kg/m2 [facility] Systolic blood 2021-06-21 12:33:00 125 mm[Hg] Univer sity [facility] Diastolic blood 2021-06-21 12:33:00 71 mm[Hg] [facility] of pressure [facility] Heart rate 2021-06-21 12:33:00 96 /min [facility] Body temperature 2021-06-21 12:33:00 37.06 Yanet [facility] Respiratory rate 2021-06-21 12:33:00 18 /min [facility] Oxygen saturation in 2021-06-21 12:33:00 98 /min [facility] Arterial blood by [facility] Pulse oximetry [place] Body height 2021-06-21 11:33:00 188 cm [facility] Body weight 2021-06-21 11:33:00 181.439 kg [facility] BMI 2021-06-21 11:33:00 51.36 kg/m2 [facility] Procedures Procedure Date / Time Performed Performing Clinician Sourc e POCT MOLECULAR FLU 2022-05-17 23:15:00 Unknown, Attending [facility] POCT MOLECULAR STREP 2022-05-17 23:14:00 Unknown, Attending [facility] POCT MOLECULAR FLU 2021-10-13 15:48:00 Unknown, Attending [facility] POCT MOLECULAR STREP 2021-10-13 15:45:00 Unknown, Attending [facility] ASSIGNMENT OF BENEFITS 2021-10-13 15:31:01 Doctor Unassigned, No [facility] Medical Branch RAPID STREP SCREEN FOR 2021-06-23 13:44:00 Sarah Beth Sampson [facility] Medical Branch Encounters Start End Encounter Admission Attending Care Care Encounter Source Date/Time Date/Time Type Type Clinicians Facility Department ID 2022-06-10 2022-06-10 SPENCER Shelby [id number] Univers 00:00:00 00:00:00 [facility] [id number] it y of [place] [id number] [place] as TL?BLEA [id number] [address] MEDICAL OFFICE [facility] 2022-05-18 2022-05-18 KYLAH Alarcon [id number] Univers 00:00:00 00:00:00 (Out) Sanjuana EVANS [id number] it y of HOSPITAL [id number] [place] [id number] [address] 2022-05-17 2022-05-17 Outpatient R MIGUEL [facility] [id number] Univers 18:00:00 18:36:21 GENI bella [facility] 2022-05-17 2022-05-17 Urgent Miguel Geni [facility] [id number] Univers 18:00:00 18:36:21 Care Unknown, Attending HEALTH [id number] ity of [place] [id number] [place] TL?BLEA [id number] [address] MEDICAL OFF[address] [facility] 2021-11-09 2021-11-09 TERELL Jackson [id number] Univers 00:00:00 00:00:00 Elizabeth PEDIATRIC [id number] [id number] [id number] [address] CARE CLINIC 2021-10-14 2021-10-14 KYLAH Thibodeaux [id number] Univers 00:00:00 00:00:00 (Out) Daniela Hayes NATHAN [id number] it y of HOSPITAL [id number] [place] [id number] [address] 2021-10-13 2021-10-13 Outpatient Freda PUENTE [facility] [id number] Univers 10:45:00 11:10:45 ELIZABETH bella [facility] 2021-10-13 2021-10-13 Urgent Elizabeth Puente [id number] Univers 10:45:00 11:10:45 Care Unknown, Attending PEDIATRIC 350.1.13. 10 ity [id number] [id number] [facility] PRIMARY [facility] Branch CARE CLINIC 2021-10-13 2021-10-13 Orders Doctor KYLAH [id number] Univers 00:00:00 00:00:00 Only Unassigned, NATHAN [id number] ity of [place] [facility] [id number] [place] [id number] [place] [address] Branch 2021-06-23 2021-06-23 Emergency X [facility] ERT [id number] Univers 07:02:00 08:49:00 SARAH BETH ity [facility] 2021-06-23 2021-06-23 Emergency [facility] [id number] Univers 07:02:00 08:49:00 [facility] [id number] it [id number] [id number] [address] ([facility]) 2021-06-21 2021-06-21 Emergency [id number] Univers 05:23:00 06:34:00 SUDHIRKEITH ity [facility] 2021-06-21 2021-06-21 [facility] [id number] Univers 05:23:00 06:34:00 [facility] [id number] it y [id number] [id number] [address] ([facility]) 2020-12-12 2020-12-12 Emergency E DANY GARCIA [facility] [id number] 11:12:00 12:11:[address] [facility] 2020-12-09 2020-12-09 [id number] 07:13:00 09:52:00 , [facility] [facility] Results Test Description Test Time Test Comments Results Result Comments Source POCT MOLECULAR FLU 2022-05-17 23:27:42 Test Item Value Reference Range Interpretation Comme nts POCT Molecular FluA (test code = 69189-8) Negative Negative POCT Molecular FluB (test code = 00137-8) Negative Negative Lab Interpretation (test code = 58618-5) Normal [facility] MOLECULAR [id number] 23:22:56 Test Item Value Reference Range Interpretation Comments POCT Molecular Strep (test code = Negative Negative 99536-6) Lab Interpretation (test code = Normal 58749-9) [facility] MOLECULAR [id number] 15:59:44 Test Item Value Reference Range Interpretation Comments POCT Molecular FluA (test code = Negative Negative 94622-8) POCT Molecular FluB (test code = Negative Negative 99170-5) Lab Interpretation (test code = Normal 58424-9) [facility] MOLECULAR [id number] 15:53:01 Test Item Value Reference Range Interpretation Comments POCT Molecular Strep (test code = Negative Negative 32170-0) Lab Interpretation (test code = Normal 63324-0) [facility]
[2022-07-12 12:05] LABS: Urine Blood Trace-intact (Negative); Urine Glucose Negative (Negative); Urine Protein Negative (Negative); Urine Specific Gravity >=1.030 (1.005-1.030)
--- NOTE | 2022-07-12 12:49 | RAD REPORT ---
EXAM DESCRIPTION: [facility]Stone Protocol - 07/12/2022 12:36 pm CLINICAL HISTORY: back pain, hematuria COMPARISON: 12/03/2021 TECHNIQUE: CT of the abdomen and pelvis was performed without contrast. All CT scans are performed using dose optimization technique as appropriate and may include automated exposure control or mA/KV adjustment according to patient size. FINDINGS: Lower chest: Tiny pulmonary nodules in the lung bases that are unchanged almost certainly benign. Liver: No acute abnormality or suspicious lesions. Hepatic steatosis. Biliary: No biliary ductal dilatation. Stomach: No significant focal abnormality. Duodenum: No significant focal abnormality. Pancreas: No significant abnormality. Spleen: No significant abnormality. Adrenal: No suspicious lesions. Kidney/ureter: No hydronephrosis. No renal calculi. Retroperitoneum: No retroperitoneal adenopathy. Vascular: No aneurysm. Bowel: No significant focal abnormality. Peritoneum: No ascites or free air. Bladder: Grossly unremarkable. Reproductive: No adnexal masses. Bones: No acute fracture. Other: n/a IMPRESSION: No acute intra-abdominal or pelvic finding. No urinary tract calculi. Normal appendix.
[2022-07-12] MEDS ORDERED: KETOROLAC 30 MG/ML INJ ONE (13:01)
[2022-07-12 13:38] LABS: SARS-COV-2 RT PCR NEGATIVE (NEGATIVE)
--- NOTE | 2022-07-12 15:05 | ER ---
Nurse's Notes [facility] Name: Ziyad Parker Age: 27 yrs Sex: Male : 1995 Arrival Date: 07/12/2022 Time: 11:50 Bed Treatment Private MD: Diagnosis: Low back pain Presentation: 07/12 12:50 Acuity: EDUIN 3 iw Vital Signs: 12:04 BP 123 / 82; Pulse 106; Resp 20; Temp 98.2(O); Pulse Ox 96% on R/A; Weight 195.04 kg; mm9 Height 6 ft. 2 in. (187.96 cm); 12:04 Body Mass Index 55.21 (195.04 kg, 187.96 cm) mm9 ED Course: 11:50 Patient arrived in ED. am2 11:52 [facility] Laurent [facility]C [facility]. snw 11:52 Uzair Montes MD is Attending Physician. snw 12:05 Patient has correct armband on for positive identification. Bed in low position. Call mm9 light in reach. Side rails up X 1. Pulse ox on. NIBP on. 12:37 CT Stone Protocol In Process Unspecified. EDMS 12:40 Marzena Evans, RN is Primary Nurse. iw 12:49 COVID-19/FLU A+B/RSV Sent. 12:50 Triage completed. iw Administered Medications: 13:03 Drug: Ketorolac 30 mg Route: IM; Site: left deltoid; iw 15:57 Drug: Valium (diazepam) 10 mg Route: PO; iw 15:57 Drug: traMADol 50 mg Route: PO; iw Outcome: 15:04 Discharge ordered by . snw 15:57 Patient left the ED. iw Signatures: Dispatcher [employer] EDMS Elidia Laurent FNP-C [employer] Marzena Evans, RN RN Helen Mendes [facility] Myrtle Soares Maria mm9
--- NOTE | 2022-07-12 15:05 | EDPHYS ---
Physician Documentation [facility] Name: Ziyad Parker Age: 27 yrs Sex: Male : 1995 Arrival Date: 07/12/2022 Time: 11:50 Bed Treatment Private MD: ED Physician Uzair Montes HPI: 07/12 12:27 This 27 yrs old Male presents to ER via Unassigned with complaints of Back Pain, snw Nausea, lightheaded. 12:27 The patient presents with pain that is acute, with no known mechanism of injury. The snw symptoms are located in the low back, mid back area. Onset: The symptoms/episode began/occurred suddenly, yesterday am. The pain radiates to the chest. The problem was sustained from unknown cause. Severity of symptoms: At their worst the symptoms were severe, in the emergency department the symptoms are unchanged. The patient has not experienced similar symptoms in the past. ROS: 12:26 Constitutional: Negative for fever, chills, and weight loss, Eyes: Negative for injury, snw pain, redness, and discharge, ENT: Negative for injury, pain, and discharge, Neck: Negative for injury, pain, and swelling, Cardiovascular: Negative for chest pain, palpitations, and edema, Respiratory: Negative for shortness of breath, cough, wheezing, and pleuritic chest pain, Abdomen/GI: Negative for abdominal pain, nausea, vomiting, diarrhea, and constipation, : Negative for injury, bleeding, discharge, and swelling, MS/Extremity: Negative for injury and deformity, Skin: Negative for injury, rash, and discoloration, Neuro: Negative for headache, weakness, numbness, tingling, and seizure, Psych: Negative for depression, anxiety, suicide ideation, homicidal ideation, and hallucinations. 12:26 Back: Positive for pain at rest, pain with movement, radiated pain, of the mid back area, unable to sleep secondary to pain. Exam: 12:26 Constitutional: This is a well developed, well nourished patient who is awake, alert, snw and in no acute distress. Head/Face: Normocephalic, atraumatic. Eyes: Pupils equal round and reactive to light, extra-ocular motions intact. Lids and lashes normal. Conjunctiva and sclera are non-icteric and not injected. Cornea within normal limits. Periorbital areas with no swelling, redness, or edema. ENT: Nares patent. No nasal discharge, no septal abnormalities noted. Tympanic membranes are normal and external auditory canals are clear. Oropharynx with no redness, swelling, or masses, exudates, or evidence of obstruction, uvula midline. Mucous membranes moist. Neck: Trachea midline, no thyromegaly or masses palpated, and no cervical lymphadenopathy. Supple, full range of motion without nuchal rigidity, or vertebral point tenderness. No Meningismus. Chest/axilla: Normal chest wall appearance and motion. Nontender with no deformity. No lesions are appreciated. Cardiovascular: Regular rate and rhythm with a normal S1 and S2. No gallops, murmurs, or rubs. Normal PMI, no JVD. No pulse deficits. Respiratory: Lungs have equal breath sounds bilaterally, clear to auscultation and percussion. No rales, rhonchi or wheezes noted. No increased work of breathing, no retractions or nasal flaring. Abdomen/GI: Soft, non-tender, with normal bowel sounds. No distension or tympany. No guarding or rebound. No evidence of tenderness throughout. Skin: Warm, dry with normal turgor. Normal color with no rashes, no lesions, and no evidence of cellulitis. MS/ Extremity: Pulses equal, no cyanosis. Neurovascular intact. Full, normal range of motion. Neuro: Awake and alert, GCS 15, oriented to person, place, time, and situation. Cranial nerves II-XII grossly intact. Motor strength 5/5 in all extremities. Sensory grossly intact. Cerebellar exam normal. Normal gait. Psych: Awake, alert, with orientation to person, place and time. Behavior, mood, and affect are within normal limits. 12:26 Back: pain, that is moderate, ROM is normal, normal spinal alignment noted, CVA tenderness, is noted bilaterally. Vital Signs: 12:04 BP 123 / 82; Pulse 106; Resp 20; Temp 98.2(O); Pulse Ox 96% on R/A; Weight 195.04 kg; mm9 Height 6 ft. 2 in. (187.96 cm); 12:04 Body Mass Index 55.21 (195.04 kg, 187.96 cm) mm9 MDM: 11:58 Patient medically screened. snw 15:10 Data reviewed: vital signs, nurses notes. Data interpreted: Pulse oximetry: on room air snw is 96 %. Interpretation: acceptable. Counseling: I had a detailed discussion with the patient and/or guardian regarding: the historical points, exam findings, and any diagnostic results supporting the discharge/admit diagnosis, the need for outpatient follow up, to return to the emergency department if symptoms worsen or persist or if there are any questions or concerns that arise at home. Response to treatment: the patient's symptoms have mildly improved after treatment. Special discussion: Based on the history and exam findings, there is no indication for further emergent testing or inpatient evaluation. I discussed with the patient/guardian the need to see the primary care provider for further evaluation of the symptoms. 07/12 12:05 Order name: Urine Dipstick-Ancillary; Complete Time: 12:07 EDMS 07/12 12:11 Order name: COVID-19/FLU A+B/RSV; Complete Time: 13:39 snw 07/12 12:11 Order name: CT Stone Protocol; Complete Time: 12:51 snw Administered Medications: 13:03 Drug: Ketorolac 30 mg Route: IM; Site: left deltoid; iw 15:57 Drug: Valium (diazepam) 10 mg Route: PO; iw 15:57 Drug: traMADol 50 mg Route: PO; iw Disposition: 17:29 Co-signature as Attending Physician, Uzair Montes MD I agree with the assessment and rt plan of care. Disposition Summary: 07/12/22 15:04 Discharge Ordered Location: Home snw Condition: Stable snw Diagnosis - Low back pain snw Followup: snw - With: Emergency Department - When: As needed - Reason: Worsening of condition Followup: snw - With: Private Physician - When: 2 - 3 days - Reason: Recheck today's complaints, Continuance of care, Re-evaluation by your physician Discharge Instructions: - Discharge Summary Sheet snw - Acute Back Pain, Adult snw - How to Use Cold Therapy snw - Heat Therapy snw Forms: - Medication Reconciliation Form snw - Thank You Letter snw - Antibiotic Education snw - Prescription Opioid Use snw - Work release form eb Prescriptions: - Diclofenac Sodium 75 mg Oral Tablet Sustained Release - take 1 tablet by ORAL route 2 times per day; 30 tablet; Refills: 0, Product snw Selection Permitted - orphenadrine citrate 100 mg Oral Tablet Sustained Release - take 1 tablet by ORAL route 2 times per day As needed; 20 tablet; Refills: 0, snw Product Selection Permitted Signatures: Dispatcher [employer] Elidia Weaver FNP-C [facility] Marzena Evans, RN RN iw Uzair Montes MD MD rt
[2022-07-12] MEDS ORDERED: TRAMADOL HCL 50 MG TAB ONE (15:42)
[2022-07-12] MEDS ORDERED: DIAZEPAM 5 MG TABLET ONE (15:50)
[2022-07-12 21:39] VITALS: BP 123/82; TEMP 98.2; O2SAT 96
== END 2022-07-12 15:57 | disposition home or self-care (01) ==
LOC: ER 11:48
DX: M54.50 Low back pain, unspecified (principal); Z20.822 Contact with and (suspected) exposure to COVID-19
CPT/HCPCS: 81003; 0241U; 76377; 74176; 96372; 99284

== ENCOUNTER 2022-09-27 12:28 | Emergency (ER) | payer OTHER ==
--- OUTSIDE RECORDS SUMMARY | 2022-09-27 12:33 | XMS REPORT | Continuity of Care Document ---
:1995 Author Organization [facility] t Address [address] [place] [address] Care Team Providers Name Role Phone PCP, PATIENT DOES NOT HAVE A Primary Care Physician Unavaildaly Hayes RN, Daniela Hayes Attending Clinician Unavailable GENI RIVERA Attending Clinician Unavailable Miguel LAWSON, Geni Attending Clinician Unknown, Attending Attending Clinician Unavailable Sanjuana Hardy RN Attending Clinician Unavailable Elizabeth Puente PA-C Attending Clinician ELIZABETH PUENTE Attending Clinician Unavailable Doctor Unassigned, [place] Attending Clinician Unavailable SARAH BETH SAMPSON Attending Clinician Unavailable Camilla LAWSON, Sarah Beth Attending Clinician MORENA GUILLEN Attending Clinician Unavailable DANY GARCIA Attending Clinician Unavailable SULTANA OLGUIN Attending Clinician Unavailable Payers Payer Name Policy Type Policy Number Effective Date Expiration Date S ource Problems Condition Condition Condition Status Onset Resolution Last Treating Co mments Source Name Details Category Date Date Treatment Clinician Date No known No known Disease Unive rs active active ity of problems problems [facility] Allergies, Adverse Reactions, Alerts Allergy Allergy Status Severity Reaction(s) Onset Inactive Treating Comm ents Source Name Type Date Date Clinician NO KNOWN Drug Active Univers ALLERGIE Class ity of S [facility] Social History Social Habit Start Date Stop Date Quantity Comments Source History of Cigarette Smoker Universi ty of tobacco use [facility] Exposure to 2022-08-01 2022-08-11 Not sure University SARS-CoV-2 00:00:00 10:21:00 [place] Medical (event) Branch Tobacco use and 2022-08-11 2022-08-11 Smokeless tobacco Un iversity of exposure 00:00:00 00:00:00 non-user [facility] Sex Assigned At [birth year] Universit y of 00:00:00 00:00:00 [facility] Smoking Status Start Date Stop Date Source Tobacco smoking [facility] [place] xa consumption unknown Medical Bran ch Ex-smoker 2022-08-11 00:00:00 2022-08-11 University o f [place] 00:00:00 Medical Branch Medications Ordered Filled Start Stop Current Ordering Indication Dosage Frequency Signature Comments Components Source Medication Medication Date Date Medication? Clinician (SIG) Name Name benzonatate Yes [id number] 200mg Take 2 Univers 100 mg 1-09 capsules ity of capsule 00:00: by mouth [place] 00 every 8 Medical (eight) Branch hours as needed for Cough. bromphenira Yes [id number] 10mL Take 10 mL Univers mine-pseudo 08-11 by mouth 4 it y of ephedrine-D 00:00[place] ([place] ([place] 00 times Medical DM) 2-30-10 daily as Bran ch mg/5 mL needed for syrup Congestion /Allergies . benzonatate Yes [id number] 200mg Take 2 Univers 100 mg 1-09 capsules ity of capsule 00:00: by mouth [place] 00 every 8 Medical (eight) Branch hours as needed for Cough. bromphenira Yes [id number] 10mL Take 10 mL Univers mine-pseudo -09 by mouth 4 it y of ephed[place]-D 00:00[place] ([place] 00 times Medical DM) 2-30-10 daily as Bran ch mg/5 mL needed for syrup Congestion /Allergies . amoxicillin 2022- Yes [id number] 1{tbl} Take 1 Univers -clavulanat 08-11 tablet by it y of e 00:00: 05:59 mouth in [place] (AUGMENTIN) 00 :00 the Medical 875-125 mg morning Branch per tablet and 1 tablet in the evening. Do all this for 7 days. amoxicillin 2022- Yes [id number] 1{tbl} Take 1 Univers -clavulanat 1-09 01-17 tablet by it y of e 00:00: 05:59 mouth in [place] (AUGMENTIN) 00 :00 the Medical 875-125 mg morning Branch per tablet and 1 tablet in the evening. Do all this for 7 days. busPIRone 2021-08 Yes 10mg Take 10 mg Un sukhdeep 10 mg 0-15 by mouth ity of tablet 17:59: in the [place] [address] morning Medical and 10 mg Branch in the evening. busPIRone 2021-08 Yes 10mg Take 10 mg Un sukhdeep 10 mg 0-15 by mouth ity of tablet 17:59: in the [place] [address] morning Medical and 10 mg Branch in the evening. busPIRone 2021-08 Yes 10mg Take 10 mg Un sukhdeep 10 mg 0-15 by mouth ity of tablet 17:59: in the [place] [address] morning Medical and 10 mg Branch in the evening. busPIRone 2021-08 Yes 10mg Take 10 mg Un sukhdeep 10 mg 0-15 by mouth ity of tablet 17:59: in the [place] [address] morning Medical and 10 mg Branch in the evening. busPIRone 2021-08 Yes 10mg Take 10 mg Un sukhdeep 10 mg 0-15 by mouth ity of tablet 17:59: in the [place] [address] morning Medical and 10 mg Branch in the evening. benzonatate 2021-08 Yes [id number] 200mg Take 2 Univers 100 mg 0-15 capsules ity of capsule 00:00: by mouth [place] [address] every 8 Medical (eight) Branch hours as needed for Cough. guaiFENesin 2021-08 Yes [id number] 400mg Take 1 Univers 400 mg 0-15 tablet by ity of tablet 00:00: mouth [place] [address] every 4 Medical (four) Branch hours as needed for Cough. albuterol 2021-08 Yes [id number] 2{puff} Inhale 2 Univers 90 0-15 Puffs ity of mcg/actuati 00:00: every 6 [place] on inhaler 00 (six) Medical hours as Branch needed for Chest tightness. benzonatate 2021-08 Yes [id number] 200mg Take 2 Univers 100 mg 0-15 capsules ity of capsule 00:00: by mouth [place] [address] every 8 Medical (eight) Branch hours as needed for Cough. guaiFENesin 2021-08 Yes [id number] 400mg Take 1 Univers 400 mg 0-15 tablet by ity of tablet 00:00: mouth [place] 00 every 4 Medical (four) Branch hours as needed for Cough. albuterol 2021-08 Yes [id number] 2{puff} Inhale 2 Univers 90 0-15 Puffs ity of mcg/actuati 00:00: every 6 [place] on inhaler 00 (six) Medical hours as Branch needed for Chest tightness. benzonatate 2021-08 Yes [id number] 200mg Take 2 Univers 100 mg 0-15 capsules ity of capsule 00:00: by mouth [place] 00 every 8 Medical (eight) Branch hours as needed for Cough. guaiFENesin 2021-08 Yes [id number] 400mg Take 1 Univers 400 mg 0-15 tablet by ity of tablet 00:00: mouth [place] 00 every 4 Medical (four) Branch hours as needed for Cough. albuterol 2021-08 Yes [id number] 2{puff} Inhale 2 Univers 90 0-15 Puffs ity of mcg/actuati 00:00: every 6 [place] on inhaler 00 (six) Medical hours as Branch needed for Chest tightness. guaiFENesin 2021-08 Yes [id number] 400mg Take 1 Univers 400 mg 0-15 tablet by ity of tablet 00:00: mouth [place] 00 every 4 Medical (four) Branch hours as needed for Cough. albuterol 2021-08 Yes [id number] 2{puff} Inhale 2 Univers 90 0-15 Puffs ity of mcg/actuati 00:00: every 6 [place] on inhaler 00 (six) Medical hours as Branch needed for Chest tightness. guaiFENesin 2021-08 Yes [id number] 400mg Take 1 Univers 400 mg 0-15 tablet by ity of tablet 00:00: mouth [place] 00 every 4 Medical (four) Branch hours as needed for Cough. albuterol 2021-08 Yes [id number] 2{puff} Inhale 2 Univers 90 0-15 Puffs ity of mcg/actuati 00:00: every 6 [place] on inhaler 00 (six) Medical hours as Branch needed for Chest tightness. benzonatate 2021-083- No [id number] 200mg Take 2 Univers 100 mg 0-15 -09 capsules ity of capsule 00:00: 00:00 by mouth [place] 00 :00 every 8 Medical (eight) Branch hours as needed for Cough. fluticasone 2021-0 Yes [id number] 2{spray Use 2 Univers propionate 3-13 } Sprays in ity of 50 00:00: each [place] mcg/actuati 00 nostril Medic al on nasal daily. Branch spray fluticasone 2021-0 Yes [id number] 2{spray Use 2 Univers propionate 3-13 } Sprays in ity of 50 00:00: each [place] mcg/actuati 00 nostril Medic al on nasal daily. Branch spray fluticasone 2021-0 Yes [id number] 2{spray Use 2 Univers propionate 3-13 } Sprays in ity of 50 00:00: each [place] mcg/actuati 00 nostril Medic al on nasal daily. Branch spray fluticasone 2021-0 Yes [id number] 2{spray Use 2 Univers propionate 3-13 } Sprays in ity of 50 00:00: each [place] mcg/actuati 00 nostril Medic al on nasal daily. Branch spray fluticasone 2021-0 Yes [id number] 2{spray Use 2 Univers propionate 3-13 } Sprays in ity of 50 00:00: each [place] mcg/actuati 00 nostril Medic al on nasal daily. Branch spray bromphenira 2021-0 Yes [id number] 10mL Take 10 mL Univers mine-pseudo 3-13 by mouth 3 it y of ephedrine-D 00:00: (three) [place] M (BROMFED 00 times Medical DM) 2-30-10 daily as Bran ch mg/5 mL needed for syrup Cough. fluticasone 2021-0 Yes [id number] 2{spray Use 2 Univers propionate 3-13 } Sprays in ity of 50 00:00: each [place] mcg/actuati 00 nostril Medic al on nasal daily. Branch spray bromphenira 2021-0 Yes [id number] 10mL Take 10 mL Univers mine-pseudo 3-13 by mouth 3 it y of ephedrine-D 00:00: (three) [place] M (BROMFED 00 times Medical DM) 2-30-10 daily as Bran ch mg/5 mL needed for syrup Cough. fluticasone 2021-0 Yes [id number] 2{spray Use 2 Univers propionate 3-13 } Sprays in ity of 50 00:00: each [place] mcg/actuati 00 nostril Medic al on nasal daily. Branch spray bromphenira Yes [id number] 10mL Take 10 mL Univers mine-pseudo 3-13 by mouth 3 it y of ephedrine-D 00:00: (three) [place] M (BROMFED 00 times Medical DM) 2-30-10 daily as Bran ch mg/5 mL needed for syrup Cough. fluticasone Yes [id number] 2{spray Use 2 Univers propionate 3-13 } Sprays in ity of 50 00:00: each [place] mcg/actuati 00 nostril Medic al on nasal daily. Branch spray bromphenira 2021- No [id number] 10mL Take 10 mL Univers mine-pseudo 3-13 10-15 by mouth 3 i ty of ephedrine-D 00:00: 00:00 (three[place] (BROMFED 00 :00 times Medical DM) 2-30-10 daily as Bran ch mg/5 mL needed for syrup Cough. bromphenira 2020-08 Yes [id number] 5mL Take 5 mL Univers mine-pseudo 1-21 by mouth 4 it y of ephedrine-D 00:00: (four[place] ([place] 00 times Medical DM) 2-30-10 daily as Bran ch mg/5 mL needed for syrup Cold symptoms. bromphenira 2020-08 Yes [id number] 5mL Take 5 mL Univers mine-pseudo 1-21 by mouth 4 it y of ephedrine-D 00:00: (four[place] (BROMFED 00 times Medical DM) 2-30-10 daily as Bran ch mg/5 mL needed for syrup Cold symptoms. bromphenira 2020-08 Yes [id number] 5mL Take 5 mL Univers mine-pseudo 1-21 by mouth 4 it y of ephedrine-D 00:00: (four[place] (BROMFED 00 times Medical DM) 2-30-10 daily as Bran ch mg/5 mL needed for syrup Cold symptoms. bromphenira 2020-08 Yes [id number] 5mL Take 5 mL Univers mine-pseudo 1-21 by mouth 4 it y of ephedrine-D 00:00: (four[place] (BROMFED 00 times Medical DM) 2-30-10 daily as Bran ch mg/5 mL needed for syrup Cold symptoms. bromphenira 2020-08 Yes [id number] 5mL Take 5 mL Univers mine-pseudo 1-21 by mouth 4 it y of ephedrine-D 00:00: (four[place] (BROMFED 00 times Medical DM) 2-30-10 daily as Bran ch mg/5 mL needed for syrup Cold symptoms. benzonatate 2020-08 Yes [id number] 100mg Take 1 Univers 100 mg 1-21 capsule by ity of capsule 00:00: mouth 3 (three) Medical times Branch daily as needed for Cough. bromphenira 2020-08 Yes [id number] 5mL Take 5 mL Univers mine-pseudo 1-21 by mouth 4 it y of ephedrine-D 00:00: (four[place] (BROMFED 00 times Medical DM) 2-30-10 daily as Bran ch mg/5 mL needed for syrup Cold symptoms. benzonatate 2020-08 Yes [id number] 100mg Take 1 Univers 100 mg 1-21 capsule by ity of capsule 00:00: mouth 3 (three) Medical times Branch daily as needed for Cough. bromphenira 2020-08 Yes [id number] 5mL Take 5 mL Univers mine-pseudo 1-21 by mouth 4 it y of ephedrine-D 00:00: (four[place] (BROMFED 00 times Medical DM) 2-30-10 daily as Bran ch mg/5 mL needed for syrup Cold symptoms. bromphenira 2020-08 Yes [id number] 5mL Take 5 mL Univers mine-pseudo 1-21 by mouth 4 it y of ephedrine-D 00:00: (four) [place] (BROMFED 00 times Medical DM) 2-30-10 daily as Bran ch mg/5 mL needed for syrup Cold symptoms. bromphenira 2020-08 Yes [id number] 5mL Take 5 mL Univers mine-pseudo 1-21 by mouth 4 it y of ephedrine-D 00:00: (four[place] (BROMFED 00 times Medical DM) 2-30-10 daily as Bran ch mg/5 mL needed for syrup Cold symptoms. bromphenira 2020-08 Yes [id number] 5mL Take 5 mL Univers mine-pseudo 08-23 by mouth 4 it y of ephedrine-D 00:00: (four[place] (BROMFED 00 times Medical DM) 2-30-10 daily as Bran ch mg/5 mL needed for syrup Cold symptoms. benzonatate 2020-08- No [id number] 100mg Take 1 Univers 100 mg 08-23- capsule by ity of capsule 00:00: 00:00 [...] 06/21/21 at 0600, STAT benzonatate 2020-08 Yes [id number] 100mg Take 1 Univers 100 mg -19 capsule by ity of capsule 00:00: mouth 3 [place] 00 (three) Medical times Branch daily as needed for Cough. benzonatate 2020-08 Yes [id number] 100mg Take 1 Univers 100 mg -19 capsule by ity of capsule 00:00: mouth 3 [place] 00 (three) Medical times Branch daily as needed for Cough. benzonatate 2020-08 Yes [id number] 100mg Take 1 Univers 100 mg -19 capsule by ity of capsule 00:00: mouth 3 [place] 00 (three) Medical times Branch daily as needed for Cough. benzonatate 2020-08 No [id number] 100mg Take 1 Univers 100 mg 08-21- capsule by ity of capsule 00:00: 00:00 mouth 3 [place] 00 :00 (three) Medical times Branch daily as needed for Cough. Vital Signs Vital Name Observation Time Observation Value Comments Source Systolic blood 2022-08-11 16:54:00 131 mm[Hg] Univer sity of pressure [place] [facility] Diastolic blood 2022-08-11 16:54:00 77 mm[Hg] Unive rsity of pressure [place] [facility] Heart rate 2022-08-11 16:54:00 91 /min Universi ty of [place] [facility] Body temperature 2022-08-11 16:54:00 37 Yanet Univ ersity of [place] [facility] Respiratory rate 2022-08-11 16:54:00 16 /min Univ ersity of [place] [facility] Body height 2022-08-11 16:54:00 188 cm Universi ty of [place] [facility] Body weight 2022-08-11 16:54:00 183.072 kg Universi ty of [place] [facility] BMI 2022-08-11 16:54:00 51.82 kg/m2 Universi ty of [place] [facility] Oxygen saturation in 2022-08-11 16:54:00 97 /min University of Arterial blood by [place] [employer] Pulse oximetry Branch Systolic blood 2022-05-17 23:25:00 162 mm[Hg] Univer sity of pressure [place] [facility] Diastolic blood 2022-05-17 23:25:00 74 mm[Hg] Unive rsity of pressure [place] [facility] Heart rate 2022-05-17 23:01:00 96 /min Universi ty of [place] [facility] Body temperature 2022-05-17 23:01:00 36.5 Yanet Univ ersity of [place] [facility] Body height 2022-05-17 23:01:00 188 cm Universi ty of [place] [facility] Body weight 2022-05-17 23:01:00 184.342 kg Universi ty of [place] [facility] BMI 2022-05-17 23:01:00 52.18 kg/m2 Universi ty of [place] [facility] Oxygen saturation in 2022-05-17 23:01:00 95 /min University of Arterial blood by [place] [employer] Pulse oximetry Branch Systolic blood 2021-10-13 15:39:00 137 mm[Hg] Univer sity of pressure [place] [facility] Diastolic blood 2021-10-13 15:39:00 82 mm[Hg] Unive rsity of pressure [place] [facility] Heart rate 2021-10-13 15:36:00 83 /min Universi ty of [place] [facility] Body temperature 2021-10-13 15:36:00 36.67 Yanet Univ ersity of [place] [facility] Respiratory rate 2021-10-13 15:36:00 18 /min Univ ersity of [place] [facility] Body height 2021-10-13 15:36:00 188 cm Universi ty of [place] [facility] Body weight 2021-10-13 15:36:00 189.059 kg Universi ty of [place] [facility] BMI 2021-10-13 15:36:00 53.51 kg/m2 Universi ty of [place] [facility] Oxygen saturation in 2021-10-13 15:36:00 97 /min University of Arterial blood by [facility] Pulse oximetry Branch Systolic blood 2021-06-23 14:47:00 148 mm[Hg] Univer sity of pressure [place] [facility] Diastolic blood 2021-06-23 14:47:00 100 mm[Hg] Unive rsity of pressure [place] [facility] Heart rate 2021-06-23 14:47:00 89 /min Universi ty of [place] [facility] Body temperature 2021-06-23 14:47:00 36.89 Yanet Univ ersity of [place] [facility] Respiratory rate 2021-06-23 14:47:00 18 /min Univ ersity of [place] [facility] Oxygen saturation in 2021-06-23 14:47:00 100 /min University of Arterial blood by [facility] Pulse oximetry Branch Body height 2021-06-23 13:07:00 188 cm Universi ty of [place] [facility] Body weight 2021-06-23 13:07:00 181.439 kg Universi ty of [place] [facility] BMI 2021-06-23 13:07:00 51.36 kg/m2 Universi ty of [place] [facility] Systolic blood 2021-06-21 12:33:00 125 mm[Hg] Univer sity of pressure [place] [facility] Diastolic blood 2021-06-21 12:33:00 71 mm[Hg] Unive rsity of pressure [place] [facility] Heart rate 2021-06-21 12:33:00 96 /min Universi ty of [place] [facility] Body temperature 2021-06-21 12:33:00 37.06 Yanet Univ ersity of [place] [facility] Respiratory rate 2021-06-21 12:33:00 18 /min Univ ersity of [place] [facility] Oxygen saturation in 2021-06-21 12:33:00 98 /min University of Arterial blood by [facility] Pulse oximetry [place] Body height 2021-06-21 11:33:00 188 cm [facility] Body weight 2021-06-21 11:33:00 181.439 kg [facility] BMI 2021-06-21 11:33:00 51.36 kg/m2 [facility] Procedures Procedure Date / Time Performed Performing Clinician Sourc e POCT MOLECULAR STREP 2022-08-11 17:01:00 Unknown, Attending [facility] POCT MOLECULAR FLU 2022-05-17 23:15:00 Unknown, Attending [facility] POCT MOLECULAR STREP 2022-05-17 23:14:00 Unknown, Attending [facility] POCT MOLECULAR FLU 2021-10-13 15:48:00 Unknown, Attending [facility] POCT MOLECULAR STREP 2021-10-13 15:45:00 Unknown, Attending [facility] ASSIGNMENT OF BENEFITS 2021-10-13 15:31:01 Doctor Unassigned, No [facility] RAPID STREP SCREEN FOR 2021-06-23 13:44:[address] [facility] Encounters Start End Encounter Admission Attending Care Care Encounter Source Date/Time Date/Time Type Type Clinicians Facility Department ID 2022-08-12 2022-08-12 Letter KYLAH Hayes [id number] Univers 00:00:00 00:00:00 (Out) Daniela EVANS [id number] [facility] 4.2.7.2.686 [place] [id number] [place] [address] Branch 2022-08-11 2022-08-11 Outpatient R MIGUEL [facility] [id number] Univers 10:20:00 11:06:43 GENI bella [facility] 2022-08-11 2022-08-11 Urgent Geni Rivera [facility] [id number] Univers 10:20:00 11:06:43 Care Unknown, Attending [facility] [id number] ity [facility] 4.2.7.2.686 [place] TL?BLEA [id number] [address] OFFICE [facility] 2022-06-10 2022-06-10 [facility] [id number] Univers [facility]:00[facility] [id number] it y of [place] 4.2.7.2.686 [place] TL?BLEA [id number] [address] OFFICE [facility] 2022-05-18 2022-05-18 Letter KYLAH Hardy [id number] Univers 00:00:00 00:00:00 (Out) Sanjuana EVANS [id number] it y of HOSPITAL 4.2.7.2.686 [place] [id number] [address] 2022-05-17 2022-05-17 [facility] [id number] Univers 18:00:00 18:36:21 GENI ity [facility] 2022-05-17 2022-05-17 Vipul Rivera [facility] [id number] Univers 18:00:00 18:36:21 Care Unknown, [facility] HEALTH [id number] ity of [place] 4.2.7.2.686 [place] TL?BLEA [id number] [address] OFFICE [facility] 2021-11-09 2021-11-09 TERELL Jackson [id number] Univers 00:00:00 00:00:00 Elizabeth PEDIATRIC 350.1.13.10 [place] [id number] [address] CARE [facility] 2021-10-14 2021-10-14 Letter KYLAH Hayes [id number] Univers 00:00:00 00:00:00 (Out) Daniela EVANS [id number] it y of HOSPITAL [id number] [place] [id number] [address] 2021-10-13 2021-10-13 Outpatient Freda PUENTE [facility] [id number] Univers 10:45:00 11:10:45 ELIZABETH bella [facility] 2021-10-13 2021-10-13 Urgent Elizabeth Puente [id number] Univers 10:45:00 11:10:45 Care Unknown, Attending PEDIATRIC 350.1.13. 10 ity of [place]2.[place] [id number] [place] [address] Branch CARE CLINIC 2021-10-13 2021-10-13 Orders Doctor KYLAH [id number] Univers 00:00:00 00:00:00 Only Unassigned, NATHAN [id number] [place] [facility] 4.2.7.2.686 [place] as [id number] [address] 2021-06-23 2021-06-23 Emergency X [facility] ERT [id number] Univers 07:02:00 08:49:00 SARAH BETH taydivine [facility] 2021-06-23 2021-06-23 Emergency [facility] [id number] Univers 07:02:00 08:49:00 [facility] [id number] it y [place] [id number] [address] ([facility]) 2021-06-21 2021-06-21 Emergency X [facility] ERT [id number] Univers 05:23:00 06:34:00 SUDHIRKEITH taydivine [facility] 2021-06-21 2021-06-21 Emergency [facility] [id number] Univers 05:23:00 06:34:00 [facility] [id number] it [place] [id number] [address] ([facility]) 2020-12-12 2020-12-12 Emergency E DANY GARCIA [facility] [id number] 11:12:00 12:11:00 [facility] 2020-12-09 2020-12-09 Emergency E SHARIF [facility] [id number] 07:13:00 09:52:00 , SULTANA jorge [facility] l Results Test Description Test Time Test Comments Results Result Comments Source POCT MOLECULAR STREP 2022-08-11 17:09:16 Test Item Value Reference Range Interpretation Comme nts POCT Molecular Strep (test code = 06269-2) Negative Negative Lab Interpretation (test code = 19216-5) Normal [facility] MOLECULAR [id number] 23:27:42 Test Item Value Reference Range Interpretation Comments POCT Molecular FluA (test code = Negative Negative 23668-3) POCT Molecular FluB (test code = Negative Negative 93950-7) Lab Interpretation (test code = Normal 71626-8) [facility] MOLECULAR [id number] 23:22:56 Test Item Value Reference Range Interpretation Comments POCT Molecular Strep (test code = Negative Negative 26758-7) Lab Interpretation (test code = Normal 68254-0) [facility] MOLECULAR [id number] 15:59:44 Test Item Value Reference Range Interpretation Comments POCT Molecular FluA (test code = Negative Negative 14995-6) POCT Molecular FluB (test code = Negative Negative 05033-4) Lab Interpretation (test code = Normal 02319-0) [facility] MOLECULAR [id number] 15:53:01 Test Item Value Reference Range Interpretation Comments POCT Molecular Strep (test code = Negative Negative 24654-2) Lab Interpretation (test code = Normal 12277-6) [facility]
--- NOTE | 2022-09-27 13:46 | RAD REPORT ---
EXAM DESCRIPTION: RAD - Chest Pa And Lat (2 Views) - 09/27/2022 1:38 pm CLINICAL HISTORY: COUGH COMPARISON: Chest Pa And Lat (2 Views) dated 05/18/2022 FINDINGS: Lines: None. Lungs: No evidence of edema or pneumonia. Pleural: No significant pleural effusions or pneumothorax. Cardiac: The heart size is within normal limits. Mediastinum: Within normal limits. Bones: No acute fractures. Other: None IMPRESSION: No acute cardiopulmonary disease.
[2022-09-27 13:57] LABS: SARS-COV-2 RT PCR NEGATIVE (NEGATIVE)
--- NOTE | 2022-09-27 14:03 | EDPHYS ---
Physician Documentation [facility] Name: Ziyad Parker Age: 27 yrs Sex: Male : 1995 Arrival Date: 09/27/2022 Time: 12:31 Bed 12 Private MD: ED Physician Chon Dalal HPI: 09/27 13:43 This 27 yrs old Male presents to ER via Ambulatory with complaints of Cough, Sore kb Throat. 13:43 The patient has not experienced similar symptoms in the past. The patient has not kb recently seen a physician. 13:43 The patient or guardian reports cough, that is intermittent, described as mild. Onset: kb The symptoms/episode began/occurred 3 day(s) ago, and became worse this morning. Severity of symptoms: At their worst the symptoms were moderate, in the emergency department the symptoms are unchanged. Modifying factors: The symptoms are alleviated by nothing, the symptoms are aggravated by nothing. Associated signs and symptoms: Pertinent positives: sore throat. Historical: - Allergies: 12:45 No Known Allergies; hb - Home Meds: 12:45 buspirone 5 mg Oral tab 1 tab 2 times per day [Active]; hb - PMHx: 12:45 Sleep Apnea; hb - PSHx: 12:45 None; hb - Immunization history:: Adult Immunizations up to date. - Social history:: Smoking status: Patient denies any tobacco usage or history of. ROS: 13:40 Constitutional: Negative for fever, chills, and weight loss. kb 13:40 ENT: Positive for sore throat. 13:40 Respiratory: Positive for cough. 13:40 All other systems are negative. Exam: 13:38 Constitutional: This is a well developed, well nourished patient who is awake, alert, kb and in no acute distress. Head/Face: Normocephalic, atraumatic. ENT: Moist Mucous membranes Cardiovascular: Regular rate and rhythm with a normal S1 and S2. No gallops, murmurs, or rubs. No pulse deficits. Respiratory: Respirations even and unlabored. No increased work of breathing. Talking in full sentences Abdomen/GI: Soft, non-tender. No distention Skin: Warm, dry with normal turgor. Normal color. MS/ Extremity: Pulses equal, no cyanosis. Neurovascular intact. Full, normal range of motion. Neuro: Awake and alert, GCS 15, oriented to person, place, time, and situation. Moves all extremities. Normal gait. 13:38 ECG was reviewed by the Attending Physician. Vital Signs: 12:44 BP 132 / 89; Pulse 104; Resp 18; Temp 98.5(TE); Pulse Ox 98% on R/A; Weight 181.44 kg; hb Height 6 ft. 2 in. (187.96 cm); Pain 4/10; 12:44 Body Mass Index 51.36 (181.44 kg, 187.96 cm) hb MDM: 12:46 Patient medically screened. kb 13:44 Differential Diagnosis: Bronchitis Influenza Upper Respiratory Infection Pneumonia kb Other COVID. Data reviewed: vital signs, nurses notes. Counseling: I had a detailed discussion with the patient and/or guardian regarding: the historical points, exam findings, and any diagnostic results supporting the discharge/admit diagnosis, lab results, radiology results, the need for outpatient follow up, a family practitioner, to return to the emergency department if symptoms worsen or persist or if there are any questions or concerns that arise at home. ED course: On examPatient is a 27-year-old male who presents with cough and sore throat that started 3 days ago and was worse this morning. On exam respirations even and unlabored, lungs clear throughout, erythema to posterior pharynx without swelling or exudate. Strep, flu, COVID test, chest x-ray and EKG ordered.. 14:03 Independent interpretation of the following test(s) in the Emergency Department EKG: kb See my EKG interpretation above X-Ray: My interpretation is Chest x-ray negative for pneumonia.. ED course: Patient nontoxic in appearance. Respirations even and unlabored. Lungs clear throughout. Tolerating p.o. intake. Patient educated on symptomatic treatment and need for follow-up with PCP. Verbal understanding received.. 09/27 12:46 Order name: COVID-19/FLU A+B; Complete Time: 14:00 kb 09/27 12:46 Order name: Strep; Complete Time: 13:38 kb 09/27 12:46 Order name: Chest Pa And Lat (2 Views) XRAY; Complete Time: 13:52 kb 09/27 12:46 Order name: EKG; Complete Time: 12:48 kb 09/27 12:46 Order name: EKG - Nurse/Tech; Complete Time: 13:10 kb 09/27 13:34 Order name: Throat Culture EDMS EC:38 Rate is 100 beats/min. Rhythm is regular. QRS Dunn is Normal. ME interval is normal at kb 146 msec. QRS interval is normal at 94 msec. QT interval is normal at 443 msec. Administered Medications: No medications were administered Disposition Summary: 09/27/22 14:02 Discharge Ordered Location: Home kb Condition: Stable kb Diagnosis - Acute upper respiratory infection, unspecified kb Followup: kb - With: Emergency Department - When: As needed - Reason: Worsening of condition Followup: kb - With: Private Physician - When: 2 - 3 days - Reason: Recheck today's complaints, Continuance of care, Re-evaluation by your physician Discharge Instructions: - Discharge Summary Sheet kb - Upper Respiratory Infection, Adult, [id number] kb - Viral Respiratory Infection, [id number] kb Forms: - Medication Reconciliation Form kb - Thank You Letter kb - Antibiotic Education kb - Prescription Opioid Use kb Signatures: Dispatcher [employer] EDTN Kalie Shell, FRINGE WEAVER-C FRINGE WEAVER-Carly Callahan, RN RN
--- NOTE | 2022-09-27 14:03 | ER ---
Nurse's Notes [facility] Name: Ziyad Parker Age: 27 yrs Sex: Male : 1995 Arrival Date: 09/27/2022 Time: 12:31 Bed 12 Private MD: Diagnosis: Acute upper respiratory infection, unspecified Presentation: 09/27 12:44 Chief complaint: Sore throat, cough, and fever x 3 days, worse today. Coronavirus hb screen: Client presents with at least one sign or symptom that may indicate coronavirus-19. Provider contacted for isolation considerations. Coronavirus screen:. Ebola Screen: No symptoms or risks identified at this time. Risk Assessment: Do you want to hurt yourself or someone else? Patient reports no desire to harm self or others. Onset of symptoms was September 24, 2022. 12:44 Method Of Arrival: Ambulatory hb 12:44 Initial Sepsis Screen: Does the patient meet any 2 criteria? No. Patient's initial hb sepsis screen is negative. Does the patient have a suspected source of infection? No. Patient's initial sepsis screen is negative. 12:44 Acuity: EDUIN 4 hb Historical: - Allergies: 12:45 No Known Allergies; hb - Home Meds: 12:45 buspirone 5 mg Oral tab 1 tab 2 times per day [Active]; hb - PMHx: 12:45 Sleep Apnea; hb - PSHx: 12:45 None; hb - Immunization history:: Adult Immunizations up to date. - Social history:: Smoking status: Patient denies any tobacco usage or history of. Assessment: 14:16 Reassessment: Patient is alert, oriented x 3, equal unlabored respirations, skin iw warm/dry/pink. Vital Signs: 12:44 BP 132 / 89; Pulse 104; Resp 18; Temp 98.5(TE); Pulse Ox 98% on R/A; Weight 181.44 kg; hb Height 6 ft. 2 in. (187.96 cm); Pain 4/10; 12:44 Body Mass Index 51.36 (181.44 kg, 187.96 cm) hb ED Course: 12:31 Patient arrived in ED. rg4 12:33 Kalie Shell [facility]C [facility]. kb 12:33 Chon Dalal MD is Attending Physician. kb 12:46 Triage completed. hb 12:46 Arm band placed on. hb 13:10 COVID-19/FLU A+B Sent. hb 13:10 Strep Sent. hb 13:40 Chest Pa And Lat (2 Views) XRAY In Process Unspecified. EDMS 14:16 No provider procedures requiring assistance completed. Patient did not have IV access iw during this emergency room visit. Administered Medications: No medications were administered Outcome: 14:02 Discharge ordered by MD. kb 14:16 Discharged to home ambulatory. iw 14:16 Condition: stable 14:16 Discharge instructions given to patient, Instructed on discharge instructions, follow up and referral plans. Demonstrated understanding of instructions, follow-up care. 14:16 Patient left the ED. iw Signatures: Dispatcher [employer] EDKalie Frausto, BOWL TURNER-C BOWL TURNER-Marzena Arrington, RN RN Carly Tomlinson RN RN Teresa Corbett rg4 Corrections: (The following items were deleted from the chart) 12:46 12:44 181.44 kg; Height 6 ft. 2 in.; BMI: 51.3; hb hb 12:46 12:44 Pulse 104bpm; Resp 18bpm; Pulse Ox 98% RA; Temp 98.5F Temporal; 181.44 kg; Height hb 6 ft. 2 in.; BMI: 51.3; Pain 4/10; hb
[2022-09-27 14:36] VITALS: BP 132/89; TEMP 98.5; O2SAT 98
--- NOTE | 2022-09-29 18:44 | EKG ---
Test Date: 2022-09-27 Test Time: 13:13:20 Car Carder: MEGHAN MEASUREMENT RESULTS: Intervals: Rate: 100 MI: 146 QRSD: 94 QT: 344 QTc: 443 [place]: P: 77 MI: 146 QRS: -17 T: 0 INTERPRETIVE STATEMENTS: Normal sinus rhythm Possible Left atrial enlargement Left ventricular hypertrophy Abnormal ECG No previous ECG available for comparison Electronically Signed On 09-29-22 18:41:23 MAINTENANCE MECHANIC SUPERVISOR by Dharmesh Patton
== END 2022-09-27 14:16 | disposition home or self-care (01) ==
LOC: ER 12:28
DX: J06.9 Acute upper respiratory infection, unspecified (principal); Z20.822 Contact with and (suspected) exposure to COVID-19
CPT/HCPCS: 93005; 87070; 87081; 0240U; 71046; 99283

== ENCOUNTER 2022-10-10 14:58 | Emergency (ER) | payer OTHER ==
--- OUTSIDE RECORDS SUMMARY | 2022-10-10 15:01 | XMS REPORT | Continuity of Care Document ---
:1995 Author Organization [facility] t Address [address] [place] [address] Care Team Providers Name Role Phone PCP, PATIENT DOES NOT HAVE A Primary Care Physician UnavailLUIZA Cary Attending Clinician Unavailable Luiza Patel Attending Clinician Unknown, Attending Attending Clinician Unavailable Daniela Hayes RN Attending Clinician Unavailable GENI RIVERA Attending Clinician Unavailable Geni Rivera MD Attending Clinician Sanjuana Hardy RN Attending Clinician Unavailable Elizabeth Puente PA-C Attending Clinician ELIZABETH PUENTE Attending Clinician Unavailable Doctor Unassigned, [place] Attending Clinician Unavailable SARAH BETH SAMPSON Attending Clinician Unavailable Sarah Beth Sampson MD Attending Clinician JAVI REARDON Attending Clinician Unavailable DANY GARCIA Attending Clinician Unavailable SULTANA OLGUIN Attending Clinician Unavailable Payers Payer Name Policy Type Policy Number Effective Date Expiration Date Bernabe KOTHARI [id number] 2021 00:00:00 Problems Condition Condition Condition Status Onset Resolution Last Treating Co mments Source Name Details Category Date Date Treatment Clinician Date No known No known Disease Unive rs active active ity of problems problems [facility] Allergies, Adverse Reactions, Alerts Allergy Allergy Status Severity Reaction(s) Onset Inactive Treating Comm ents Source Name Type Date Date Clinician NO KNOWN Drug Active Univers ALLERGIE Class ity of S [facility] Social History Social Habit Start Date Stop Date Quantity Comments Source History of Cigarette Smoker Universi ty of tobacco use [facility] Exposure to 2022-08-01 2022-08-11 Not sure [facility] SARS-CoV-2 00:00:00 10:21:00 [facility] (event) [place] Tobacco use and 2022-08-11 2022-08-11 Smokeless tobacco Un iversity of exposure 00:00:00 00:00:[address] [facility] Sex Assigned At [birth year] Universit y of 00:00:00 00:00:00 [facility] Smoking Status Start Date Stop Date Source Tobacco smoking [facility] [place] consumption unknown Medical Bran ch Ex-smoker 2022-08-11 00:00:00 2022-08-11 [place] o f [place] 00:00:00 [facility] Medications Ordered Filled Start Stop Current Ordering Indication Dosage Frequency Signature Comments Components Source Medication Medication Date Date Medication? Clinician (SIG) Name Name monica Yes [id number] Z pack as Univers n 3-07 directed. ity of (ZITHROMAX 00:00: [place] Z-JAY) 250 00 Medical mg tablet Branch benzonatate 2022- Yes [id number] 200mg Take 1 Univers 200 mg 3 03-18 capsule by ity of capsule 00:00: 04:59 mouth 3 [place] 00 :00 (three) Medical times Branch daily as needed for Cough for up to 10 days. ondansetron 2022- Yes [id number] 4mg Take 1 Univers 4 mg 3 03-13 tablet by ity of disintegrat 00:00: 04:59 [place] tablet 00 :00 every 8 Medica l (eight) Branch hours as needed for Nausea and Vomiting (N/V) for up to 5 days. benzonatate Yes [id number] 200mg Take 2 Univers 100 mg 1-09 capsules ity of capsule 00:00: by mouth [place] 00 every 8 Medical (eight) Branch hours as needed for Cough. bromphenira Yes [id number] 10mL Take 10 mL Univers mine-pseudo 1-09 by mouth 4 it y of ephedrine-D 00:00: (four[place] (BROMFED 00 times Medical DM) 2-30-10 daily as Bran ch mg/5 mL needed for syrup Congestion /Allergies . benzonatate 2022-0 Yes [id number] 200mg Take 2 Univers 100 mg 1-09 capsules ity of capsule 00:00: by mouth [place] 00 every 8 Medical (eight) Branch hours as needed for Cough. bromphenira 2022-0 Yes [id number] 10mL Take 10 mL Univers mine-pseudo 1-09 by mouth 4 it y of ephedrine-D 00:00: (four[place] (BROMFED 00 times Medical DM) 2-30-10 daily as Bran ch mg/5 mL needed for syrup Congestion /Allergies . benzonatate 2022-0 Yes [id number] 200mg Take 2 Univers 100 mg 1-09 capsules ity of capsule 00:00: by mouth [place] 00 every 8 Medical (eight) Branch hours as needed for Cough. bromphenira 2022-0 Yes [id number] 10mL Take 10 mL Univers mine-pseudo 1-09 by mouth 4 it y of ephedrine-D 00:00: (four[place] (BROMFED 00 times Medical DM) 2-30-10 daily as Bran ch mg/5 mL needed for syrup Congestion /Allergies . amoxicillin 2022- Yes [id number] 1{tbl} Take 1 Univers -clavulanat 08-11 tablet by it y of e 00:00: 05:59 mouth in [place] (AUGMENTIN) 00 :00 the Medical 875-125 mg morning Branch per tablet and 1 tablet in the evening. Do all this for 7 days. amoxicillin 2022-2022- Yes [id number] 1{tbl} Take 1 Univers -clavulanat 08-11-17 tablet by it y of e 00:00: 05:59 mouth in [place] (AUGMENTIN) 00 :00 the Medical 875-125 mg morning Branch per tablet and 1 tablet in the evening. Do all this for 7 days. busPIRone 2021-08 Yes 10mg Take 10 mg Un sukhdeep 10 mg 0-15 by mouth ity of tablet 17:59: in the [place] [address] morning Medical and 10 mg Branch in the evening. busPIRone 2021-08 Yes 10mg Take 10 mg Un sukhdeep 10 mg 0-15 by mouth ity of tablet 17:59: in the [place] [address] morning Medical and 10 mg Branch in the evening. busPIRone 2021-08 Yes 10mg Take 10 mg Un sukhdeep 10 mg 0-15 by mouth ity of tablet 17:59: in the [place] [address] morning Medical and 10 mg Branch in the evening. busPIRone 2021-08 Yes 10mg Take 10 mg Un sukhdeep 10 mg 0-15 by mouth ity of tablet 17:59: in the [place] [address] morning Medical and 10 mg Branch in the evening. busPIRone 2021-08 Yes 10mg Take 10 mg Un sukhdeep 10 mg 0-15 by mouth ity of tablet 17:59: in the [place] [address] morning Medical and 10 mg Branch in the evening. busPIRone 2021-08 Yes 10mg Take 10 mg Un sukhdeep 10 mg 0-15 by mouth ity of tablet 17:59: in the [place] [address] morning Medical and 10 mg Branch in the evening. benzonatate 2021-08 Yes [id number] 200mg Take 2 Univers 100 mg 0-15 capsules ity of capsule 00:00: by mouth [place] 00 every 8 Medical (eight) Branch hours as needed for Cough. guaiFENesin 2021-08 Yes [id number] 400mg Take 1 Univers 400 mg 0-15 tablet by ity of tablet 00:00: mouth [place] 00 every 4 Medical (four) Branch hours as needed for Cough. albuterol 2021-08 Yes [id number] 2{puff} Inhale 2 Univers 90 0-15 Puffs ity of mcg/actuati 00:00: every 6 [place] on inhaler 00 (six) Medical hours as Branch needed for Chest tightness. benzonatate 2021-08 Yes [id number] 200mg Take 2 Univers 100 mg 0-15 capsules ity of capsule 00:00: by mouth [place] 00 every 8 Medical (eight) Branch hours as needed for Cough. guaiFENesin 2021-08 Yes [id number] 400mg Take 1 Univers 400 mg 0-15 tablet by ity of tablet 00:00: mouth [place] 00 every 4 Medical (four) Branch hours as needed for Cough. albuterol 2021-08 Yes [id number] 2{puff} Inhale 2 Univers 90 0-15 Puffs ity of mcg/actuati 00:00: every 6 [place] on inhaler 00 (six) Medical hours as Branch needed for Chest tightness. benzonatate 2021-08 Yes [id number] 200mg Take 2 Univers 100 mg 0-15 capsules ity of capsule 00:00: by mouth [place] 00 every 8 Medical (eight) Branch hours as needed for Cough. guaiFENesin 2021-08 Yes [id number] 400mg Take 1 Univers 400 mg 0-15 tablet by ity of tablet 00:00: mouth [place] 00 every 4 Medical (four) Branch hours as needed for Cough. albuterol 2021-08 Yes [id number] 2{puff} Inhale 2 Univers 90 0-15 Puffs ity of mcg/actuati 00:00: every 6 [place] as on inhaler 00 (six) Medical hours as Branch needed for Chest tightness. guaiFENesin 2021-08 Yes [id number] 400mg Take 1 Univers 400 mg 0-15 tablet by ity of tablet 00:00: mouth [place] 00 every 4 Medical (four) Branch hours as needed for Cough. albuterol 2021-08 Yes [id number] 2{puff} Inhale 2 Univers 90 0-15 Puffs ity of mcg/actuati 00:00: every 6 [place] on inhaler 00 (six) Medical hours as Branch needed for Chest tightness. guaiFENesin 2021-08 Yes [id number] 400mg Take 1 Univers 400 mg 0-15 tablet by ity of tablet 00:00: mouth [place] 00 every 4 Medical (four) Branch hours as needed for Cough. albuterol 2021-08 Yes [id number] 2{puff} Inhale 2 Univers 90 0-15 Puffs ity of mcg/actuati 00:00: every 6 [place] on inhaler 00 (six) Medical hours as Branch needed for Chest tightness. guaiFENesin 2021-08 Yes [id number] 400mg Take 1 Univers 400 mg 0-15 tablet by ity of tablet 00:00: mouth [place] 00 every 4 Medical (four) Branch hours as needed for Cough. albuterol 2021-08 Yes [id number] 2{puff} Inhale 2 Univers 90 0-15 Puffs ity of mcg/actuati 00:00: every 6 [place] on inhaler 00 (six) Medical hours as Branch needed for Chest tightness. benzonatate 2021-08- No [id number] 200mg Take 2 Univers 100 mg 0-15 -09 capsules ity of capsule 00:00: 00:00 by mouth [place] 00 :00 every 8 Medical (eight) Branch hours as needed for Cough. fluticasone 2021-0 Yes [id number] 2{spray Use 2 Univers propionate 3-13 } Sprays in ity of 50 00:00: each [place] mcg/actuati 00 nostril Medic al on nasal daily. Branch spray fluticasone 0 Yes [id number] 2{spray Use 2 Univers propionate 3-13 } Sprays in ity of 50 00:00: each [place] mcg/actuati 00 nostril Medic al on nasal daily. Branch spray fluticasone 0 Yes [id number] 2{spray Use 2 Univers propionate 3-13 } Sprays in ity of 50 00:00: each [place] mcg/actuati 00 nostril Medic al on nasal daily. Branch spray fluticasone 2021-0 Yes [id number] 2{spray Use 2 Univers propionate 3-13 } Sprays in ity of 50 00:00: each [place] mcg/actuati 00 nostril Medic al on nasal daily. Branch spray fluticasone Yes [id number] 2{spray Use 2 Univers propionate 3-13 } Sprays in ity of 50 00:00: each [place] mcg/actuati 00 nostril Medic al on nasal daily. Branch spray fluticasone Yes [id number] 2{spray Use 2 Univers propionate 3-13 } Sprays in ity of 50 00:00: each [place] mcg/actuati 00 nostril Medic al on nasal daily. Branch spray fluticasone 0 Yes [id number] 2{spray Use 2 Univers propionate 3-13 } Sprays in ity of 50 00:00: each [place] mcg/actuati 00 nostril Medic al on nasal daily. Branch spray bromphenira 0 Yes [id number] 10mL Take 10 mL Univers mine-pseudo 3-13 by mouth 3 it y of ephedrine-D 00:00: (three) [place] M (BROMFED 00 times Medical DM) 2-30-10 daily as Bran ch mg/5 mL needed for syrup Cough. fluticasone 2021-0 Yes [id number] 2{spray Use 2 Univers propionate 3-13 } Sprays in ity of 50 00:00: each [place] mcg/actuati 00 nostril Medic al on nasal daily. Branch spray bromphenira Yes [id number] 10mL Take 10 mL Univers mine-pseudo 3-13 by mouth 3 it y of ephedrine-D 00:00: (three) [place] M (BROMFED 00 times Medical DM) 2-30-10 daily as Bran ch mg/5 mL needed for syrup Cough. fluticasone Yes [id number] 2{spray Use 2 Univers propionate 3-13 } Sprays in ity of 50 00:00: each [place] mcg/actuati 00 nostril Medic al on nasal daily. Branch spray bromphenira Yes [id number] 10mL Take 10 mL Univers mine-pseudo 3-13 by mouth 3 it y of ephedrine-D 00:00: (three) [place] M (BROMFED 00 times Medical DM) 2-30-10 daily as Bran ch mg/5 mL needed for syrup Cough. bromphenira 2021- No [id number] 10mL Take 10 mL Univers mine-pseudo 3-13 10-15 by mouth 3 i ty of ephedrine-D 00:00: 00:00 (three) [place] (BROMFED 00 :00 times Medical DM) 2-30-10 daily as Bran ch mg/5 mL needed for syrup Cough. bromphenira 2020-08 Yes [id number] 5mL Take 5 mL Univers mine-pseudo 1-21 by mouth 4 it y of ephedrine-D 00:00: (four) [place] (BROMFED 00 times Medical DM) 2-30-10 daily as Bran ch mg/5 mL needed for syrup Cold symptoms. bromphenira 2020-08 Yes [id number] 5mL Take 5 mL Univers mine-pseudo 1-21 by mouth 4 it y of ephedrine-D 00:00: (four) [place] (BROMFED 00 times Medical DM) 2-30-10 daily as Bran ch mg/5 mL needed for syrup Cold symptoms. bromphenira 2020-08 Yes [id number] 5mL Take 5 mL Univers mine-pseudo 1-21 by mouth 4 it y of ephedrine-D 00:00: (four) [place] (BROMFED 00 times Medical DM) 2-30-10 daily as Bran ch mg/5 mL needed for syrup Cold symptoms. bromphenira 2020-08 Yes [id number] 5mL Take 5 mL Univers mine-pseudo 1-21 by mouth 4 it y of ephedrine-D 00:00: (four) [place] (BROMFED 00 times Medical DM) 2-30-10 daily as Bran ch mg/5 mL needed for syrup Cold symptoms. bromphenira 2020-08 Yes [id number] 5mL Take 5 mL Univers mine-pseudo 1-21 by mouth 4 it y of ephedrine-D 00:00: (four) [place] (BROMFED 00 times Medical DM) 2-30-10 daily as Bran ch mg/5 mL needed for syrup Cold symptoms. bromphenira 2020-08 Yes [id number] 5mL Take 5 mL Univers mine-pseudo 1-21 by mouth 4 it y of ephedrine-D 00:00: (four) [place] (BROMFED times Medical DM) 2-30-10 daily as Bran ch mg/5 mL needed for syrup Cold symptoms. benzonatate 2020-08 Yes [id number] 100mg Take 1 Univers 100 mg 1-21 capsule by ity of capsule 00:00: mouth 3 (three) Medical times Branch daily as needed for Cough. bromphenira 2020-08 Yes [id number] 5mL Take 5 mL Univers mine-pseudo 1-21 by mouth 4 it y of ephedrine-D 00:00: (four) [place] (BROMFED 00 times Medical DM) 2-30-10 daily as Bran ch mg/5 mL needed for syrup Cold symptoms. benzonatate 2020-08 Yes [id number] 100mg Take 1 Univers 100 mg 1-21 capsule by ity of capsule 00:00: mouth 3 (three) Medical times Branch daily as needed for Cough. bromphenira 2020-08 Yes [id number] 5mL Take 5 mL Univers mine-pseudo 1-21 by mouth 4 it y of ephedrine-D 00:00: (four) [place] (BROMFED 00 times Medical DM) 2-30-10 daily as Bran ch mg/5 mL needed for syrup Cold symptoms. bromphenira 2020-08 Yes [id number] 5mL Take 5 mL Univers mine-pseudo 1-21 by mouth 4 it y of ephedrine-D 00:00: (four) [place] (BROMFED 00 times Medical DM) 2-30-10 daily as Bran ch mg/5 mL needed for syrup Cold symptoms. bromphenira 2020-08 Yes [id number] 5mL Take 5 mL Univers mine-pseudo 1-21 by mouth 4 it y of ephedrine-D 00:00: (four) [place] (BROMFED 00 times Medical DM) 2-30-10 daily as Bran ch mg/5 mL needed for syrup Cold symptoms. bromphenira 2020-08 Yes [id number] 5mL Take 5 mL Univers mine-pseudo 1-21 by mouth 4 it y of ephedrine-D 00:00: (four) [place] (BROMFED 00 times Medical DM) 2-30-10 daily as Bran ch mg/5 mL needed for syrup Cold symptoms. benzonatate 2020-08 No [id number] 100mg Take 1 Univers 100 mg 08-23 03-13 capsule by ity of capsule 00:00: [...] 06/21/21 at 0600, STAT benzonatate 2020-08 Yes [id number] 100mg Take 1 Univers 100 mg -19 capsule by ity of capsule 00:00: mouth 3 [place] 00 (three) Medical times Branch daily as needed for Cough. benzonatate 2020-08 Yes [id number] 100mg Take 1 Univers 100 mg - capsule by ity of capsule 00:00: mouth 3 [place] 00 (three) Medical times Branch daily as needed for Cough. benzonatate 2020-08 Yes [id number] 100mg Take 1 Univers 100 mg 1-19 capsule by ity of capsule 00:00: mouth 3 [place] 00 (three) Medical times [place] daily as needed for Cough. benzonatate 2020-08- No [id number] 100mg Take 1 Univers 100 mg 1-19 03-13 capsule by ity of capsule 00:00: 00:00 mouth 3 [place] 00 :00 (three) Medical times [place] daily as needed for Cough. Vital Signs Vital Name Observation Time Observation Value Comments Source Systolic blood 2022-10-07 22:53:00 138 mm[Hg] Univer sity of [facility] Diastolic blood 2022-10-07 22:53:00 88 mm[Hg] [facility] Heart rate 2022-10-07 22:53:00 108 /min [facility] Body temperature 2022-10-07 22:53:00 37.33 Yanet [facility] Respiratory rate 2022-10-07 22:53:00 16 /min [facility] Body height 2022-10-07 22:53:00 188 cm [facility] Body weight 2022-10-07 22:53:00 190.828 kg [facility] BMI 2022-10-07 22:53:00 54.01 kg/m2 [facility] Oxygen saturation in 2022-10-07 22:53:00 96 /min [facility] Arterial blood by [facility] Pulse oximetry Branch Systolic blood 2022-08-11 16:54:00 131 mm[Hg] Univer sity of [facility] Diastolic blood 2022-08-11 16:54:00 77 mm[Hg] [facility] Heart rate 2022-08-11 16:54:00 91 /min [facility] Body temperature 2022-08-11 16:54:00 37 Yanet [facility] Respiratory rate 2022-08-11 16:54:00 16 /min [facility] Body height 2022-08-11 16:54:00 188 cm [facility] Body weight 2022-08-11 16:54:00 183.072 kg Universi ty of [place] [facility] BMI 2022-08-11 16:54:00 51.82 kg/m2 Universi ty of [place] [facility] Oxygen saturation in 2022-08-11 16:54:00 97 /min University of Arterial blood by [place] [facility] Pulse oximetry Branch Systolic blood 2022-05-17 23:25:00 162 mm[Hg] Univer sity of pressure [place] [facility] Diastolic blood 2022-05-17 23:25:00 74 mm[Hg] Unive rsity of pressure [place] [facility] Heart rate 2022-05-17 23:01:00 96 /min Universi ty of [place] [facility] Body temperature 2022-05-17 23:01:00 36.5 Yanet Univ ersity of [place] [facility] Body height 2022-05-17 23:01:00 188 cm Universi ty of [place] [facility] Body weight 2022-05-17 23:01:00 184.342 kg Universi ty of [place] [facility] BMI 2022-05-17 23:01:00 52.18 kg/m2 Universi ty of [place] [facility] Oxygen saturation in 2022-05-17 23:01:00 95 /min University of Arterial blood by [place] [facility] Pulse oximetry Branch Systolic blood 2021-10-13 15:39:00 137 mm[Hg] Univer sity of pressure [place] [facility] Diastolic blood 2021-10-13 15:39:00 82 mm[Hg] Unive rsity of pressure [place] [facility] Heart rate 2021-10-13 15:36:00 83 /min Universi ty of [place] [facility] Body temperature 2021-10-13 15:36:00 36.67 Yanet Univ ersity of [place] [facility] Respiratory rate 2021-10-13 15:36:00 18 /min Univ ersity of [place] [facility] Body height 2021-10-13 15:36:00 188 cm Universi ty of [place] [facility] Body weight 2021-10-13 15:36:00 189.059 kg Universi ty of [place] [facility] BMI 2021-10-13 15:36:00 53.51 kg/m2 Universi ty of [place] [facility] Oxygen saturation in 2021-10-13 15:36:00 97 /min University of Arterial blood by [facility] Pulse oximetry Branch Systolic blood 2021-06-23 14:47:00 148 mm[Hg] Univer sity of pressure [place] [facility] Diastolic blood 2021-06-23 14:47:00 100 mm[Hg] Unive rsity of pressure [place] [facility] Heart rate 2021-06-23 14:47:00 89 /min Universi ty of [place] [facility] [place] Body temperature 2021-06-23 14:47:00 36.89 Yanet Univ ersity of [facility] Respiratory rate 2021-06-23 14:47:00 18 /min Univ ersity of [place] [facility] Oxygen saturation in 2021-06-23 14:47:00 100 /min University of Arterial blood by [facility] Pulse oximetry Branch Body height 2021-06-23 13:07:00 188 cm Universi ty of [place] [facility] [place] Body weight 2021-06-23 13:07:[address] [facility] BMI 2021-06-23 13:07:00 51.36 kg/m2 Universi ty of [place] [facility] [place] Systolic blood 2021-06-21 12:33:00 125 mm[Hg] Univer sity of pressure [place] [facility] Diastolic blood 2021-06-21 12:33:00 71 mm[Hg] Unive rsity of pressure [place] [facility] [place] Heart rate 2021-06-21 12:33:00 96 /min Universi ty of [place] [facility] [place] Body temperature 2021-06-21 12:33:00 37.06 Yanet Univ ersity of [place] [facility] [place] Respiratory rate 2021-06-21 12:33:00 18 /min Univ ersity of [place] [facility] [place] Oxygen saturation in 2021-06-21 12:33:00 98 /min University of Arterial blood by [facility] Pulse oximetry Branch Body height 2021-06-21 11:33:00 188 cm Universi ty of [place] [facility] Body weight 2021-06-21 11:33:00 181.439 kg [facility]i ty [facility] [place] [facility] BMI 2021-06-21 11:33:00 51.36 kg/m2 Universi ty [facility] [place] [facility] [place] Procedures Procedure Date / Time Performed Performing Clinician Chandana e POCT MOLECULAR STREP 2022-10-07 22:54:00 Unknown, Attending Univ ersity [facility] POCT MOLECULAR STREP 2022-08-11 17:01:00 Unknown, Attending [facility] POCT MOLECULAR FLU 2022-05-17 23:15:00 Unknown, Attending [facility] POCT MOLECULAR STREP 2022-05-17 23:14:00 Unknown, Attending [facility] POCT MOLECULAR FLU 2021-10-13 15:48:00 Unknown, Attending [facility] POCT MOLECULAR STREP 2021-10-13 15:45:00 Unknown, Attending [facility] ASSIGNMENT OF BENEFITS 2021-10-13 15:31:01 Doctor Unassigned, No [facility] RAPID STREP SCREEN FOR 2021-06-23 13:44:00 Sarah Beth Sampson [facility] Encounters Start End Encounter Admission Attending Care Care Encounter Source Date/Time Date/Time Type Type Clinicians Facility Department ID 2022-10-07 2022-10-07 Outpatient Freda RUBI [facility] [id number] Univers 16:40:00 17:15:10 LUIZA [facility] 2022-10-07 2022-10-07 Urgent Luiza Rubi [facility] [id number] Univers 16:40:00 17:15:10 Care Unknown, Attending [facility] [id number] ity [facility] [id number] [place] TL?BLEA [id number] [address] MEDICAL OFFICE BUILDING 2022-08-12 2022-08-12 Letter KYLAH Hayes [id number] Univers 00:00:00 00:00:00 (Out) Daniela EVANS [id number] it y of [facility] [id number] [place] as [id number] [address] 2022-08-11 2022-08-11 Outpatient Freda RIVERA [facility] [id number] Univers 10:20:00 11:06:43 GENI [facility] 2022-08-11 2022-08-11 Urgent Geni Rivera [facility] [id number] Univers 10:20:00 11:06:43 Care Unknown, Attending HEALTH [id number] ity of [facility] [id number] [place] TL?BLEA [id number] [address] OFFICE [facility] 2022-06-10 2022-06-10 Joey Rivera [facility] [id number] Univers 00:00:00 00:00:00 [facility] [id number] it y of [facility] [id number] [place] TL?BLEA [id number] [address] OFFICE [facility] 2022-05-18 2022-05-18 Letter KYLAH Hardy [id number] Univers 00:00:00 00:00:00 (Out) Sanjuanamarbella EVANS [id number] it y of HOSPITAL 4.2.7.2.686 [place] as [id number] [address] 2022-05-17 2022-05-17 [facility] [id number] Univers 18:00:00 18:36:[address] [facility] 2022-05-17 2022-05-17 [facility] [id number] Univers 18:00:00 18:36:21 Care Unknown, Attending [facility] [id number] ity of [place] 4.2.7.2.686 [place] as TL?BLEA [id number] [address] OFFICE [facility] 2021-11-09 2021-11-09 TERELL Jackson [id number] Univers 00:00:00 00:00:00 Elizabeth PEDIATRIC [id number] [place]y [place] [id number] [address] [facility] 2021-10-14 2021-10-14 Letter KYLAH Hayes [id number] Univers 00:00:00 00:00:00 (Out) Daniela MATHURY [id number] it y of HOSPITAL 4.2.7.2.686 [place] [id number] [place] [address] Branch 2021-10-13 2021-10-13 Outpatient R CINDI [facility] [id number] Univers 10:45:00 11:10:[address] [facility] 2021-10-13 2021-10-13 Urgent Elizabeth Puente 1.2.840.11 [id number] Univers 10:45:00 11:10:45 Care Unknown, Attending PEDIATRIC 350.1.13. 10 [place]y [place]2.[place] [id number] [facility] PRIMARY [facility] Branch CARE CLINIC 2021-10-13 2021-10-13 Orders Doctor KYLAH 1.2.840.114 [id number] Univers 00:00:00 00:00:00 Only Unassigned, NATHAN [id number] ity of [place] [facility] [id number] [place] as [phone] [place] [address] Branch 2021-06-23 2021-06-23 [facility] [id number] Univers 07:02:00 08:49:00 SARAH BETH [facility] 2021-06-23 2021-06-23 [facility] [id number] Univers 07:02:00 08:49:00 [facility] [id number] it y [place] [phone] [address] ([facility]) 2021-06-21 2021-06-21 Emergency [facility] ERT [id number] [employer] 05:23:00 06:34:[address] [facility] 2021-06-21 2021-06-21 [facility] [id number] Univers 05:23:00 06:34:00 Javi Barba [facility] [id number] it [id number] [id number] [address] ([facility]) 2020-12-12 2020-12-12 Emergency E DANY GARCIA [facility] [id number] 11:12:00 12:11:[address] [facility] 2020-12-09 2020-12-09 Emergency [id number] 07:13:00 09:52:00 , [facility] Results Test Description Test Time Test Comments Results Result Comments Source POCT MOLECULAR STREP 2022-10-07 23:01:59 Test Item Value Reference Range Interpretation Comme nts POCT Molecular Strep (test code = 89874-8) Negative Negative Lab Interpretation (test code = 77559-1) Normal [facility] MOLECULAR [id number] 17:09:16 Test Item Value Reference Range Interpretation Comments POCT Molecular Strep (test code = Negative Negative 65496-8) Lab Interpretation (test code = Normal 01375-3) [facility] MOLECULAR [id number] 23:27:42 Test Item Value Reference Range Interpretation Comments POCT Molecular FluA (test code = Negative Negative 40875-3) POCT Molecular FluB (test code = Negative Negative 51673-0) Lab Interpretation (test code = Normal 72312-2) [facility] MOLECULAR [id number] 23:22:56 Test Item Value Reference Range Interpretation Comments POCT Molecular Strep (test code = Negative Negative 59481-0) Lab Interpretation (test code = Normal 23224-7) [facility] MOLECULAR [id number] 15:59:44 Test Item Value Reference Range Interpretation Comments POCT Molecular FluA (test code = Negative Negative 49271-1) POCT Molecular FluB (test code = Negative Negative 28184-2) Lab Interpretation (test code = Normal 92612-3) [facility] MOLECULAR [id number] 15:53:01 Test Item Value Reference Range Interpretation Comments POCT Molecular Strep (test code = Negative Negative 22789-1) Lab Interpretation (test code = Normal 92968-3) [facility]
[2022-10-10 16:21] LABS: Urine Blood Trace-intact (Negative); Urine Glucose Negative (Negative); Urine Protein Trace (Negative); Urine Specific Gravity 1.025 (1.005-1.030)
[2022-10-10] MEDS ORDERED: KETOROLAC 30 MG/ML INJ ONE (16:30)
[2022-10-10] MEDS ORDERED: NA CHLORIDE 0.9% 1,000 ML ONE (16:31)
[2022-10-10 16:47] LABS: Absolute Lymphocytes (CBC) 1.7 K/uL (0.7-4.9); Hematocrit 43.5 % (39.6-49.0); Lymphocytes % 19.2 % (15.3-44.8); MCV 81.7 fL (80-100); MPV 6.8 fL (7.6-11.3); RBC Red Blood Cell Count 5.32 M/uL (4.33-5.43)
--- NOTE | 2022-10-10 16:58 | RAD REPORT ---
EXAM DESCRIPTION: CT - Stone Protocol - 10/10/2022 4:31 pm CLINICAL HISTORY: PAIN, bilateral lower abdominal/back pain. Nausea COMPARISON: Stone Protocol dated 07/12/2022; Abdomen Pelvis W Contrast dated 12/03/2021 TECHNIQUE: Thin cut axial CT imaging of the abdomen and pelvis was performed without IV contrast. Mu ltiplanar reformats were generated and reviewed. All CT scans are performed using dose optimization technique as appropriate and may include automated exposure control or mA/KV adjustment according to patient size. FINDINGS: New central left upper lobe consolidation with adjacent ground-glass opacities. Pleural-ba sed left lower lobe 8 millimeter nodule, and a peripheral right lower lobe [address] able. An elongated right middle lobe 7 millimeter nodule on axial image is stable. The liver, spleen, and pancreas show no suspicious findings. Gallbladder and biliary tree are also wi thout suspicious finding. Symmetric renal contour, without suspicious parenchymal findings within limits of noncontrast techniq ue. No evidence of radiopaque calculi or hydroureteronephrosis. No dilated bowel loops or bowel wall thickening. No free air, free fluid or inflammatory stranding. N o hernia, mass or bulky lymphadenopathy. The urinary bladder is suboptimally distended, limiting eval uation. No suspicious bony findings. IMPRESSION: Left upper lobe central consolidation with adjacent ground-glass opacities, concerning f or pneumonia. No acute intra-abdominal process. No hydroureteronephrosis or radiopaque calculi.
[2022-10-10 17:17] LABS: Albumin 3.9 g/dL (3.4-5.0); Bilirubin Total 0.5 mg/dL (0.2-1.0); Potassium 3.9 mmol/L (3.5-5.1)
[2022-10-10 17:25] LABS: Urine Bacteria None Seen /HPF (<20); Urine Mucus 1+ /HPF (None Seen); Urine RBC None Seen /HPF (None Seen)
[2022-10-10] MEDS ORDERED: levoFLOXacin 500 MG TAB ONE (17:55)
--- NOTE | 2022-10-24 16:27 | ER ---
Nurse's Notes [facility] Name: Ziyad Parker Age: 27 yrs Sex: Male : 1995 Arrival Date: 10/10/2022 Time: 14:59 Bed 10 [facility] MD: Diagnosis: Low back pain;Other pneumonia, unspecified organism Presentation: 10/10 16:06 Chief complaint: Patient states: Bilateral lower abdominal and back pain that started ph this morning, also reports nausea, denies difficulty urinating, fever or chills. Coronavirus screen: Vaccine status: Patient reports receiving the 2nd dose of the covid vaccine. Ebola Screen: No symptoms or risks identified at this time. Initial Sepsis Screen: Does the patient meet any 2 criteria? No. Patient's initial sepsis screen is negative. Does the patient have a suspected source of infection? No. Patient's initial sepsis screen is negative. Risk Assessment: Do you want to hurt yourself or someone else? Patient reports no desire to harm self or others. Onset of symptoms was October 10, 2022. 16:06 Method Of Arrival: Ambulatory ph 16:06 Acuity: EDUIN 3 ph Historical: - Allergies: 16:11 No Known Allergies; ph - PMHx: 16:11 Sleep Apnea; ph - PSHx: 16:11 None; ph - Immunization history:: Adult Immunizations unknown. - Social history:: Smoking status: Patient denies any tobacco usage or history of. Screenin:38 [facility] ED Fall Risk Assessment (Adult) History of falling in the last 3 months, ph including since admission No falls in past 3 months (0 pts) Confusion or Disorientation No (0 pts) Intoxicated or Sedated No (0 pts) Impaired Gait No (0 pts) Mobility Assist Device Used No (0 pt) Altered Elimination No (0 pt) Score/Fall Risk Level 0 - 2 = Low Risk Oriented to surroundings, Maintained a safe environment, Educated pt \T\ family on fall prevention, incl call for assistance when getting out of bed. Abuse screen: Denies threats or abuse. Nutritional screening: No deficits noted. Tuberculosis screening: No symptoms or risk factors identified. Assessment: 16:15 Reassessment: pt brought back to ER room. ph 16:28 Reassessment: pt taken to CT via wheelchair. ph 16:44 General: Appears in no apparent distress. Behavior is calm, cooperative. Pain: ph Complains of pain in low back area Pain radiates to testicle Quality of pain is described as throbbing. Neuro: Level of Consciousness is awake, alert, obeys commands, Oriented to person, place, time, situation, Appropriate for age. Cardiovascular: Rhythm is regular. Respiratory: Airway is patent Respiratory effort is even, unlabored, Respiratory pattern is regular, symmetrical. GI: Abdomen is round obese, Bowel sounds present X 4 quads. Abd is soft and non tender X 4 quads. : Urine is clear. Derm: Skin is pink, warm \T\ dry. Musculoskeletal: Range of motion: intact in all extremities. 18:07 Reassessment: No changes from previously documented assessment. Patient and/or family ph updated on plan of care and expected duration. Pain level reassessed. Patient is alert, oriented x 3, equal unlabored respirations, skin warm/dry/pink. Vital Signs: 16:06 BP 134 / 117; Pulse 87; Resp 18; Temp 98.1(O); Pulse Ox 96% on R/A; Weight 181.44 kg; ph Height 6 ft. 2 in. ; Pain 6/10; 16:44 BP 111 / 72; Pulse 83; Resp 18; Pulse Ox 97% on R/A; ph 18:07 BP 121 / 54; Pulse 88; Resp 18; Pulse Ox 99% ; ph 16:06 Body Mass Index 51.36 (181.44 kg, 187.96 cm) ph 16:06 Pain Scale: Adult ph ED Course: 14:59 Patient arrived in ED. jj6 15:05 Elidia Laurent FNP-C is [facility]. snw 15:05 Randolph Willis MD is Attending Physician. snw 16:10 Triage completed. ph 16:11 Arm band placed on Patient placed in an exam room, on a stretcher. ph 16:21 Urine collected: clean catch specimen, clear. tm3 16:29 Urine Culture Sent. ph 16:29 Urine Microscopic Only Sent. ph 16:33 CT Stone Protocol In Process Unspecified. EDMS 16:38 Placed in gown. Bed in low position. Call light in reach. Side rails up X 1. Client ph placed on continuous cardiac and pulse oximetry monitoring. NIBP monitoring applied. 16:38 No provider procedures requiring assistance completed. ph 16:42 Initial lab(s) drawn, by me, sent to lab. Inserted saline lock: 20 gauge in right tm3 antecubital area, using aseptic technique. 16:44 CBC with Diff Sent. ph 16:44 CMP Sent. ph 16:44 Lipase Sent. ph 18:08 IV discontinued, intact, bleeding controlled, No redness/swelling at site. Pressure ph dressing applied. Administered Medications: 16:44 Drug: NS 0.9% IV 1000 ml Route: IV; Rate: 1 bolus; Site: right antecubital; ph 18:08 Follow up: Response: No adverse reaction; IV Status: Completed infusion ph 16:44 Drug: Ketorolac IVP 30 mg Route: IVP; Site: right antecubital; ph 17:45 Follow up: Response: No adverse reaction ph 18:00 Drug: LevOfloxacin PO 500 mg Route: PO; ph 18:08 Follow up: Response: No adverse reaction ph Medication: 16:38 VIS not applicable for this client. ph Outcome: 17:42 Discharge ordered by . shiloh 18:08 Discharged to home ambulatory. ph 18:08 Condition: stable 18:08 Discharge instructions given to patient, Instructed on discharge instructions, follow up and referral plans. Demonstrated understanding of instructions, follow-up care, medications, Prescriptions given X 3. 18:08 Patient left the ED. ph Signatures: Dispatcher [employer] EDMS Nilay Gant tm3 Elidia Laurent, GAS WELDER-C GAS WELDER-Csnw Farhana Nunez, RN RN aaInna Montague RN RN Elizabeth Pacheco jj6 Corrections: (The following items were deleted from the chart) 19:21 15:05 Farhana Nunez, RN is Primary Nurse. aaReji haas
--- NOTE | 2022-10-24 16:27 | EDPHYS ---
Physician Documentation [facility] Name: Ziyad Parker Age: 27 yrs Sex: Male : 1995 Arrival Date: 10/10/2022 Time: 14:59 Bed 10 Private MD: ED Physician Randolph Willis HPI: 10/10 16:21 This 27 yrs old Male presents to ER via Ambulatory with complaints of Low Back Pain, snw Abdominal Pain. 16:21 The patient presents with pain that is acute, with no known mechanism of injury. The snw symptoms are located in the low back, wraps around lower abd bilaterally. to testicles. The problem was sustained from unknown cause. Onset: The symptoms/episode began/occurred suddenly, today. Associated signs and symptoms: Pertinent positives: nausea. Severity of symptoms: At their worst the symptoms were moderate. The patient has not experienced similar symptoms in the past. The patient has not recently seen a physician. taking Zithromax for URI per report. Historical: - Allergies: 16:11 No Known Allergies; ph - PMHx: 16:11 Sleep Apnea; ph - PSHx: 16:11 None; ph - Immunization history:: Adult Immunizations unknown. - Social history:: Smoking status: Patient denies any tobacco usage or history of. ROS: 16:20 Constitutional: Negative for fever, chills, and weight loss, Eyes: Negative for injury, snw pain, redness, and discharge, ENT: Negative for injury, pain, and discharge, Neck: Negative for injury, pain, and swelling, Cardiovascular: Negative for chest pain, palpitations, and edema, Respiratory: Negative for shortness of breath, cough, wheezing, and pleuritic chest pain, Back: Negative for injury, positive for pain, : Negative for injury, bleeding, discharge, and swelling, MS/Extremity: Negative for injury and deformity, Skin: Negative for injury, rash, and discoloration, Neuro: Negative for headache, weakness, numbness, tingling, and seizure, Psych: Negative for depression, anxiety, suicide ideation, homicidal ideation, and hallucinations. 16:20 Abdomen/GI: Positive for abdominal pain, nausea, wraps around lower back to abdomen with rad to testicles.. Exam: 16:20 Constitutional: This is a well developed, well nourished patient who is awake, alert, snw and in no acute distress. Head/Face: Normocephalic, atraumatic. Eyes: Pupils equal round and reactive to light, extra-ocular motions intact. Lids and lashes normal. Conjunctiva and sclera are non-icteric and not injected. Cornea within normal limits. Periorbital areas with no swelling, redness, or edema. ENT: Nares patent. No nasal discharge, no septal abnormalities noted. Tympanic membranes are normal and external auditory canals are clear. Oropharynx with no redness, swelling, or masses, exudates, or evidence of obstruction, uvula midline. Mucous membranes moist. Neck: Trachea midline, no thyromegaly or masses palpated, and no cervical lymphadenopathy. Supple, full range of motion without nuchal rigidity, or vertebral point tenderness. No Meningismus. Chest/axilla: Normal chest wall appearance and motion. Nontender with no deformity. No lesions are appreciated. Cardiovascular: Regular rate and rhythm with a normal S1 and S2. No gallops, murmurs, or rubs. Normal PMI, no JVD. No pulse deficits. Respiratory: Lungs have equal breath sounds bilaterally, clear to auscultation and percussion. No rales, rhonchi or wheezes noted. No increased work of breathing, no retractions or nasal flaring. Skin: Warm, dry with normal turgor. Normal color with no rashes, no lesions, and no evidence of cellulitis. MS/ Extremity: Pulses equal, no cyanosis. Neurovascular intact. Full, normal range of motion. Neuro: Awake and alert, GCS 15, oriented to person, place, time, and situation. Cranial nerves II-XII grossly intact. Motor strength 5/5 in all extremities. Sensory grossly intact. Cerebellar exam normal. Normal gait. Psych: Awake, alert, with orientation to person, place and time. Behavior, mood, and affect are within normal limits. 16:20 Abdomen/GI: Inspection: obese Bowel sounds: normal, Palpation: abdomen is soft and non-tender, in all quadrants. 16:20 Back: pain, that is moderate, of the low back area, normal spinal alignment noted. Vital Signs: 16:06 BP 134 / 117; Pulse 87; Resp 18; Temp 98.1(O); Pulse Ox 96% on R/A; Weight 181.44 kg; ph Height 6 ft. 2 in. ; Pain 6/10; 16:44 BP 111 / 72; Pulse 83; Resp 18; Pulse Ox 97% on R/A; ph 18:07 BP 121 / 54; Pulse 88; Resp 18; Pulse Ox 99% ; ph 16:06 Body Mass Index 51.36 (181.44 kg, 187.96 cm) ph 16:06 Pain Scale: Adult ph MDM: 15:34 Patient medically screened. snw 17:44 Differential diagnosis: arthritis, fracture, contusion, UTI, kidney stone. Data snw reviewed: vital signs, nurses notes, lab test result(s), radiologic studies, CT scan. Test considered but Not performed: Other Details CT for PE - pt denies CP, SOB, syncope. Counseling: I had a detailed discussion with the patient and/or guardian regarding: the historical points, exam findings, and any diagnostic results supporting the discharge/admit diagnosis, lab results, radiology results, the need for outpatient follow up, to return to the emergency department if symptoms worsen or persist or if there are any questions or concerns that arise at home. Special discussion: Based on the patient's Hx, exam, and Dx evaluation, there is no indication for emergent surgery or inpatient Tx. It is understood by the patient/guardian that if the Sx's persist or worsen they need to return immediately for re-evaluation. Based on the history and exam findings, there is no indication for further emergent testing or inpatient evaluation. I discussed with the patient/guardian the need to see the primary care provider for further evaluation of the symptoms. I discussed with the patient/guardian the need to see the morgue librarian for further evaluation of the symptoms. 10/10 16:19 Order name: Urine Culture snw 10/10 16:19 Order name: Urine Microscopic Only; Complete Time: 17:29 snw 10/10 16:19 Order name: CBC with Diff; Complete Time: 16:52 snw 10/10 16:19 Order name: CMP; Complete Time: 17:29 snw 10/10 16:19 Order name: Lipase; Complete Time: 17:29 snw 10/10 16:22 Order name: Urine Dipstick-Ancillary; Complete Time: 16:23 EDMS 10/10 16:19 Order name: CT Stone Protocol; Complete Time: 16:59 snw 10/10 16:19 Order name: Urine Dipstick-Ancillary (obtain specimen); Complete Time: 16:29 snw 10/10 16:19 Order name: IV Saline Lock; Complete Time: 16:44 snw 10/10 16:19 Order name: Labs collected and sent; Complete Time: 16:44 snw Administered Medications: 16:44 Drug: NS 0.9% IV 1000 ml Route: IV; Rate: 1 bolus; Site: right antecubital; ph 18:08 Follow up: Response: No adverse reaction; IV Status: Completed infusion ph 16:44 Drug: Ketorolac IVP 30 mg Route: IVP; Site: right antecubital; ph 17:45 Follow up: Response: No adverse reaction ph 18:00 Drug: LevOfloxacin PO 500 mg Route: PO; ph 18:08 Follow up: Response: No adverse reaction ph Disposition: 18:57 Co-signature as Attending Physician, Randolph Willis MD I reviewed the patient's care rn provided by the Advanced Practice Provider and agree with the diagnosis and treatment plan. Disposition Summary: 10/10/22 17:42 Discharge Ordered Location: Home snw Condition: Stable snw Diagnosis - Low back pain snw - Other pneumonia, unspecified organism snw Followup: snw - With: Emergency Department - When: As needed - Reason: Worsening of condition Followup: snw - With: Private Physician - When: 2 - 3 days - Reason: Recheck today's complaints, Continuance of care, Re-evaluation by your physician Discharge Instructions: - Discharge Summary Sheet snw - Acute Back Pain, Adult snw - Community-Acquired Pneumonia, Adult snw - Sleep Apnea snw - Heat Therapy snw - Quality Sleep Information, Adult snw Forms: - Medication Reconciliation Form snw - Thank You Letter snw - Antibiotic Education snw - Prescription Opioid Use snw Prescriptions: - Diclofenac Sodium 75 mg Oral Tablet Sustained Release - take 1 tablet by ORAL route 2 times per day; 30 tablet; Refills: 0, Product snw Selection Permitted - orphenadrine citrate 100 mg Oral Tablet Sustained Release - take 1 tablet by ORAL route 2 times per day As needed; 20 tablet; Refills: 0, snw Product Selection Permitted - levofloxacin 500 mg Oral Tablet - take 1 tablet by ORAL route once daily for 7 days; 7 tablet; Refills: 0, snw Product Selection Permitted Signatures: Dispatcher [employer] EDElidia Carolina, HIGH SCHOOL SCIENCE TEACHER-C HIGH SCHOOL SCIENCE TEACHER-Csnw Randolph Willis MD MD rn Inna Edwards RN RN ph
== END 2022-10-10 18:08 | disposition home or self-care (01) ==
LOC: ER 14:58
DX: M54.50 Low back pain, unspecified (principal); J18.8 Other pneumonia, unspecified organism
CPT/HCPCS: 96361; 87088; 85025; 87086; 36415; 83690; 80053; 76377; 74176; 96374; 99284; J7030; 81003; 81015

== ENCOUNTER 2023-01-16 18:15 | Emergency (ER) | payer OTHER ==
--- OUTSIDE RECORDS SUMMARY | 2023-01-16 18:17 | XMS REPORT | Continuity of Care Document ---
:1995 Author Organization [facility] t Address [address] [facility] [place] [address] Care Team Providers Name Role Phone PCP, PATIENT DOES NOT HAVE A Primary Care Physician UnavailLUIZA Cary Attending Clinician Unavailable Luiza Patel Attending Clinician Unknown, Attending Attending Clinician Unavailable Daniela Hayes RN Attending Clinician Unavailable GENI RIVERA Attending Clinician Unavailable Geni Rivera MD Attending Clinician Sanjuana Hardy RN Attending Clinician Unavailable Elizabeth Puente PA-C Attending Clinician ELIZABETH PUENTE Attending Clinician Unavailable Doctor Unassigned, [place] Attending Clinician Unavailable SARAH BETH SAMPSON Attending Clinician Unavailable Sarah Beth Sampson MD Attending Clinician JAVI REARDON Attending Clinician Unavailable DANY GARCIA Attending Clinician Unavailable SULTANA OLGUIN Attending Clinician Unavailable Payers Payer Name Policy Type Policy Number Effective Date Expiration Date Bernabe KOTHARI [id number] 2021 00:00:00 Problems Condition Condition Condition Status Onset Resolution Last Treating Co mments Source Name Details Category Date Date Treatment Clinician Date No known No known Disease Unive rs active active ity of problems problems [facility] Allergies, Adverse Reactions, Alerts Allergy Allergy Status Severity Reaction(s) Onset Inactive Treating Comm ents Source Name Type Date Date Clinician NO KNOWN Drug Active Univers ALLERGIE Class ity of S [facility] Social History Social Habit Start Date Stop Date Quantity Comments Source History of Cigarette Smoker Universi ty of tobacco use [facility] Exposure to 2022-08-01 2022-08-11 Not sure [facility] SARS-CoV-2 00:00:00 10:21:00 [facility] (event) [place] Tobacco use and 2022-08-11 2022-08-11 Smokeless tobacco Un iversity of exposure 00:00:00 00:00:00 non-user [facility] Sex Assigned At [birth year] Universit y of 00:00:00 00:00:00 [facility] Smoking Status Start Date Stop Date Source Tobacco smoking [facility] [place] consumption unknown Medical Bran ch Ex-smoker 2022-08-11 00:00:00 2022-08-11 [place] 00:00:00 [facility] Medications Ordered Filled Start Stop Current Ordering Indication Dosage Frequency Signature Comments Components Source Medication Medication Date Date Medication? Clinician (SIG) Name Name monica Yes [id number] Z pack as Univers n 3-07 directed. ity of (ZITHROMAX 00:00: [place] Z-JAY) 250 00 Medical mg tablet Branch benzonatate 2022- No [id number] 200mg Take 1 Univers 200 mg 10-07 03-18 capsule by ity of capsule 00:00: 04:59 mouth 3 [place] 00 :00 (three) Medical times Branch daily as needed for Cough for up to 10 days. ondansetron 2022- No [id number] 4mg Take 1 Univers 4 mg 10-07 03-13 tablet by ity of disintegrat 00:00: 04:59 [place] 00 :00 every 8 Medica l (eight) Branch hours as needed for Nausea and Vomiting (N/V) for up to 5 days. benzonatate Yes [id number] 200mg Take 2 Univers 100 mg 1-09 capsules ity of capsule 00:00: by mouth [place] 00 every 8 Medical (eight) Branch hours as needed for Cough. bromphenira Yes [id number] 10mL Take 10 mL Univers mine-pseudo 1-09 by mouth 4 it y of ephedrine-D 00:00: (four[place] (BROMF[place] 00 times Medical DM) 2-30-10 daily as Bran ch mg/5 mL needed for syrup Congestion /Allergies . benzonatate 2022-0 Yes [id number] 200mg Take 2 Univers 100 mg 1-09 capsules ity of capsule 00:00: by mouth [place] 00 every 8 Medical (eight) Branch hours as needed for Cough. bromphenira 2022-0 Yes [id number] 10mL Take 10 mL Univers mine-pseudo 1-09 by mouth 4 it y of ephedrine-D 00:00: (four[place] (BROMF[place] 00 times Medical DM) 2-30-10 daily as Bran ch mg/5 mL needed for syrup Congestion /Allergies . benzonatate 2022-0 Yes [id number] 200mg Take 2 Univers 100 mg 1-09 capsules ity of capsule 00:00: by mouth [place] 00 every 8 Medical (eight) Branch hours as needed for Cough. bromphenira 2022-0 Yes [id number] 10mL Take 10 mL Univers mine-pseudo 1-09 by mouth 4 it y of ephedrine-D 00:00: (four[place] (BROMF[place] 00 times Medical DM) 2-30-10 daily as Bran ch mg/5 mL needed for syrup Congestion /Allergies . amoxicillin 2022-2022- No [id number] 1{tbl} Take 1 Univers -clavulanat 08-11 tablet by it y of e 00:00: 05:59 mouth in [place] (AUGMENTIN) 00 :00 the Medical 875-125 mg morning Branch per tablet and 1 tablet in the evening. Do all this for 7 days. amoxicillin 2022-0 2022- No [id number] 1{tbl} Take 1 Univers -clavulanat 08-11-17 tablet by it y of e 00:00: 05:59 mouth in [place] (AUGMENTIN) 00 :00 the Medical 875-125 mg morning Branch per tablet and 1 tablet in the evening. Do all this for 7 days. busPIRone 2021-08 Yes 10mg Take 10 mg Un sukhdeep 10 mg 0-15 by mouth ity of tablet 17:59: in the [place] [address] morning Medical and 10 mg Branch in the evening. busPIRone 2021-08 Yes 10mg Take 10 mg Un sukhdeep 10 mg 0-15 by mouth ity of tablet 17:59: in the [place] [address] morning Medical and 10 mg Branch in the evening. busPIRone 2021-08 Yes 10mg Take 10 mg Un sukhdeep 10 mg 0-15 by mouth ity of tablet 17:59: in the [place] [address] morning Medical and 10 mg Branch in the evening. busPIRone 2021-08 Yes 10mg Take 10 mg Un sukhdeep 10 mg 0-15 by mouth ity of tablet 17:59: in the [place] [address] morning Medical and 10 mg Branch in the evening. busPIRone 2021-08 Yes 10mg Take 10 mg Un sukhdeep 10 mg 0-15 by mouth ity of tablet 17:59: in the [place] [address] morning Medical and 10 mg Branch in the evening. busPIRone 2021-08 Yes 10mg Take 10 mg Un sukhdeep 10 mg 0-15 by mouth ity of tablet 17:59: in the [place] [address] morning Medical and 10 mg Branch in the evening. benzonatate 2021-08 Yes [id number] 200mg Take 2 Univers 100 mg 0-15 capsules ity of capsule 00:00: by mouth [place] 00 every 8 Medical (eight) Branch hours as needed for Cough. guaiFENesin 2021-08 Yes [id number] 400mg Take 1 Univers 400 mg 0-15 tablet by ity of tablet 00:00: mouth [place] 00 every 4 Medical (four) Branch hours as needed for Cough. albuterol 2021-08 Yes [id number] 2{puff} Inhale 2 Univers 90 0-15 Puffs ity of mcg/actuati 00:00: every 6 [place] on inhaler 00 (six) Medical hours as Branch needed for Chest tightness. benzonatate 2021-08 Yes [id number] 200mg Take 2 Univers 100 mg 0-15 capsules ity of capsule 00:00: by mouth [place] 00 every 8 Medical (eight) Branch hours as needed for Cough. guaiFENesin 2021-08 Yes [id number] 400mg Take 1 Univers 400 mg 0-15 tablet by ity of tablet 00:00: mouth [place] 00 every 4 Medical (four) Branch hours as needed for Cough. albuterol 2021-08 Yes [id number] 2{puff} Inhale 2 Univers 90 0-15 Puffs ity of mcg/actuati 00:00: every 6 [place] on inhaler 00 (six) Medical hours as Branch needed for Chest tightness. benzonatate 2021-08 Yes [id number] 200mg Take 2 Univers 100 mg 0-15 capsules ity of capsule 00:00: by mouth [place] 00 every 8 Medical (eight) Branch hours as needed for Cough. guaiFENesin 2021-08 Yes [id number] 400mg Take 1 Univers 400 mg 0-15 tablet by ity of tablet 00:00: mouth [place] 00 every 4 Medical (four) Branch hours as needed for Cough. albuterol 2021-08 Yes [id number] 2{puff} Inhale 2 Univers 90 0-15 Puffs ity of mcg/actuati 00:00: every 6 [place] on inhaler 00 (six) Medical hours as Branch needed for Chest tightness. guaiFENesin 2021-08 Yes [id number] 400mg Take 1 Univers 400 mg 0-15 tablet by ity of tablet 00:00: mouth [place] 00 every 4 Medical (four) Branch hours as needed for Cough. albuterol 2021-08 Yes [id number] 2{puff} Inhale 2 Univers 90 0-15 Puffs ity of mcg/actuati 00:00: every 6 [place] on inhaler 00 (six) Medical hours as Branch needed for Chest tightness. guaiFENesin 2021-08 Yes [id number] 400mg Take 1 Univers 400 mg 0-15 tablet by ity of tablet 00:00: mouth [place] 00 every 4 Medical (four) Branch hours as needed for Cough. albuterol 2021-08 Yes [id number] 2{puff} Inhale 2 Univers 90 0-15 Puffs ity of mcg/actuati 00:00: every 6 [place] on inhaler 00 (six) Medical hours as Branch needed for Chest tightness. guaiFENesin 2021-08 Yes [id number] 400mg Take 1 Univers 400 mg 0-15 tablet by ity of tablet 00:00: mouth [place] 00 every 4 Medical (four) Branch hours as needed for Cough. albuterol 2021-08 Yes [id number] 2{puff} Inhale 2 Univers 90 0-15 Puffs ity of mcg/actuati 00:00: every 6 [place] on inhaler 00 (six) Medical hours as Branch needed for Chest tightness. benzonatate 2021-08- No [id number] 200mg Take 2 Univers 100 mg 0-15 -09 capsules ity of capsule 00:00: 00:00 by mouth [place] 00 :00 every 8 Medical (eight) Branch hours as needed for Cough. fluticasone 2021-0 Yes [id number] 2{spray Use 2 Univers propionate 3-13 } Sprays in ity of 50 00:00: each [place] mcg/actuati 00 nostril Medic al on nasal daily. Branch spray fluticasone 0 Yes [id number] 2{spray Use 2 Univers propionate 3-13 } Sprays in ity of 50 00:00: each [place] mcg/actuati 00 nostril Medic al on nasal daily. Branch spray fluticasone 0 Yes [id number] 2{spray Use 2 Univers propionate 3-13 } Sprays in ity of 50 00:00: each [place] mcg/actuati 00 nostril Medic al on nasal daily. Branch spray fluticasone 2021-0 Yes [id number] 2{spray Use 2 Univers propionate 3-13 } Sprays in ity of 50 00:00: each [place] mcg/actuati 00 nostril Medic al on nasal daily. Branch spray fluticasone Yes [id number] 2{spray Use 2 Univers propionate 3-13 } Sprays in ity of 50 00:00: each [place] mcg/actuati 00 nostril Medic al on nasal daily. Branch spray fluticasone Yes [id number] 2{spray Use 2 Univers propionate 3-13 } Sprays in ity of 50 00:00: each [place] mcg/actuati 00 nostril Medic al on nasal daily. Branch spray fluticasone 0 Yes [id number] 2{spray Use 2 Univers propionate 3-13 } Sprays in ity of 50 00:00: each [place] mcg/actuati 00 nostril Medic al on nasal daily. Branch spray bromphenira 0 Yes [id number] 10mL Take 10 mL Univers mine-pseudo 3-13 by mouth 3 it y of ephedrine-D 00:00: (three) [place] M (BROMFED 00 times Medical DM) 2-30-10 daily as Bran ch mg/5 mL needed for syrup Cough. fluticasone 2021-0 Yes [id number] 2{spray Use 2 Univers propionate 3-13 } Sprays in ity of 50 00:00: each [place] mcg/actuati 00 nostril Medic al on nasal daily. Branch spray bromphenira Yes [id number] 10mL Take 10 mL Univers mine-pseudo 3-13 by mouth 3 it y of ephedrine-D 00:00: (three) [place] M (BROMFED 00 times Medical DM) 2-30-10 daily as Bran ch mg/5 mL needed for syrup Cough. fluticasone Yes [id number] 2{spray Use 2 Univers propionate 3-13 } Sprays in ity of 50 00:00: each [place] mcg/actuati 00 nostril Medic al on nasal daily. Branch spray bromphenira Yes [id number] 10mL Take 10 mL Univers mine-pseudo 3-13 by mouth 3 it y of ephedrine-D 00:00: (three) [place] M (BROMFED 00 times Medical DM) 2-30-10 daily as Bran ch mg/5 mL needed for syrup Cough. bromphenira 2021- No [id number] 10mL Take 10 mL Univers mine-pseudo 3-13 10-15 by mouth 3 i ty of ephedrine-D 00:00: 00:00 (three) [place] (BROMFED 00 :00 times Medical DM) 2-30-10 daily as Bran ch mg/5 mL needed for syrup Cough. bromphenira 2020-08 Yes [id number] 5mL Take 5 mL Univers mine-pseudo 1-21 by mouth 4 it y of ephedrine-D 00:00: (four[place] (BROMFED 00 times Medical DM) 2-30-10 daily as Bran ch mg/5 mL needed for syrup Cold symptoms. bromphenira 2020-08 Yes [id number] 5mL Take 5 mL Univers mine-pseudo 1-21 by mouth 4 it y of ephedrine-D 00:00: (four) [place] (BROMFED 00 times Medical DM) 2-30-10 daily as Bran ch mg/5 mL needed for syrup Cold symptoms. bromphenira 2020-08 Yes [id number] 5mL Take 5 mL Univers mine-pseudo 1-21 by mouth 4 it y of ephedrine-D 00:00: (four[place] (BROMFED 00 times Medical DM) 2-30-10 daily as Bran ch mg/5 mL needed for syrup Cold symptoms. bromphenira 2020-08 Yes [id number] 5mL Take 5 mL Univers mine-pseudo 1-21 by mouth 4 it y of ephedrine-D 00:00: (four) [place] (BROMFED 00 times Medical DM) 2-30-10 daily as Bran ch mg/5 mL needed for syrup Cold symptoms. bromphenira 2020-08 Yes [id number] 5mL Take 5 mL Univers mine-pseudo 1-21 by mouth 4 it y of ephedrine-D 00:00: (four) [place] (BROMFED 00 times Medical DM) 2-30-10 daily as Bran ch mg/5 mL needed for syrup Cold symptoms. bromphenira 2020-08 Yes [id number] 5mL Take 5 mL Univers mine-pseudo 1-21 by mouth 4 it y of ephedrine-D 00:00: (four) [place] (BROMFED times Medical DM) 2-30-10 daily as Bran ch mg/5 mL needed for syrup Cold symptoms. benzonatate 2020-08 Yes [id number] 100mg Take 1 Univers 100 mg 1-21 capsule by ity of capsule 00:00: mouth 3 (three) Medical times Branch daily as needed for Cough. bromphenira 2020-08 Yes [id number] 5mL Take 5 mL Univers mine-pseudo 1-21 by mouth 4 it y of ephedrine-D 00:00: (four) [place] (BROMFED 00 times Medical DM) 2-30-10 daily as Bran ch mg/5 mL needed for syrup Cold symptoms. benzonatate 2020-08 Yes [id number] 100mg Take 1 Univers 100 mg 1-21 capsule by ity of capsule 00:00: mouth 3 (three) Medical times Branch daily as needed for Cough. bromphenira 2020-08 Yes [id number] 5mL Take 5 mL Univers mine-pseudo 1-21 by mouth 4 it y of ephedrine-D 00:00: (four) [place] (BROMFED 00 times Medical DM) 2-30-10 daily as Bran ch mg/5 mL needed for syrup Cold symptoms. bromphenira 2020-08 Yes [id number] 5mL Take 5 mL Univers mine-pseudo 1-21 by mouth 4 it y of ephedrine-D 00:00: (four) [place] (BROMFED 00 times Medical DM) 2-30-10 daily as Bran ch mg/5 mL needed for syrup Cold symptoms. bromphenira 2020-08 Yes [id number] 5mL Take 5 mL Univers mine-pseudo 1-21 by mouth 4 it y of ephedrine-D 00:00: (four) [place] (BROMFED 00 times Medical DM) 2-30-10 daily as Bran ch mg/5 mL needed for syrup Cold symptoms. bromphenira 2020-08 Yes [id number] 5mL Take 5 mL Univers mine-pseudo 1-21 by mouth 4 it y of ephedrine-D 00:00: (four) [place] (BROMFED 00 times Medical DM) 2-30-10 daily as Bran ch mg/5 mL needed for syrup Cold symptoms. benzonatate 2020-08 No [id number] 100mg Take 1 Univers 100 mg 08-23 [...] 06/21/21 at 0600, STAT benzonatate 2020-08 Yes [id number] 100mg Take 1 Univers 100 mg -19 capsule by ity of capsule 00:00: mouth 3 [place] 00 (three) Medical times Branch daily as needed for Cough. benzonatate 2020-08 Yes [id number] 100mg Take 1 Univers 100 mg - capsule by ity of capsule 00:00: mouth 3 [place] 00 (three) Medical times Branch daily as needed for Cough. benzonatate 2020-08 Yes [id number] 100mg Take 1 Univers 100 mg 1-19 capsule by ity of capsule 00:00: mouth 3 [place] 00 (three) Medical times [place] daily as needed for Cough. benzonatate 2020-08- No [id number] 100mg Take 1 Univers 100 mg 1-19 03-13 capsule by ity of capsule 00:00: 00:00 mouth 3 [place] 00 :00 (three) Medical times [place] daily as needed for Cough. Vital Signs Vital Name Observation Time Observation Value Comments Source Systolic blood 2022-10-07 22:53:00 138 mm[Hg] Univer sity of [facility] Diastolic blood 2022-10-07 22:53:00 88 mm[Hg] [facility] Heart rate 2022-10-07 22:53:00 108 /min [facility] Body temperature 2022-10-07 22:53:[address] [facility] Respiratory rate 2022-10-07 22:53:00 16 /min [facility] Body height 2022-10-07 22:53:00 188 cm [facility] Body weight 2022-10-07 22:53:00 190.828 kg [facility] BMI 2022-10-07 22:53:00 54.01 kg/m2 [facility] Oxygen saturation in 2022-10-07 22:53:00 96 /min [facility] Arterial blood by [facility] Pulse oximetry Branch Systolic blood 2022-08-11 16:54:00 131 mm[Hg] Univer sity of [facility] Diastolic blood 2022-08-11 16:54:00 77 mm[Hg] [facility] Heart rate 2022-08-11 16:54:00 91 /min [facility] Body temperature 2022-08-11 16:54:[address] [facility] Respiratory rate 2022-08-11 16:54:00 16 /min [facility] Body height 2022-08-11 16:54:00 188 cm [facility] Body weight 2022-08-11 16:54:00 183.072 kg Universi ty of [place] [facility] BMI 2022-08-11 16:54:00 51.82 kg/m2 Universi ty of [place] [facility] Oxygen saturation in 2022-08-11 16:54:00 97 /min University of Arterial blood by [place] [facility] fay Pulse oximetry Branch Systolic blood 2022-05-17 23:25:00 162 mm[Hg] Univer sity of pressure [place] [facility] Diastolic blood 2022-05-17 23:25:00 74 mm[Hg] Unive rsity of pressure [place] [facility] Heart rate 2022-05-17 23:01:00 96 /min Universi ty of [place] [facility] Body temperature 2022-05-17 23:01:00 36.5 [place] Univ ersity of [place] [facility] Body height 2022-05-17 23:01:00 188 cm Universi ty of [place] [facility] Body weight 2022-05-17 23:01:00 184.342 kg Universi ty of [place] [facility] BMI 2022-05-17 23:01:00 52.18 kg/m2 Universi ty of [place] [facility] Oxygen saturation in 2022-05-17 23:01:00 95 /min University of Arterial blood by [place] [facility] fay Pulse oximetry Branch Systolic blood 2021-10-13 15:39:00 137 mm[Hg] Univer sity of pressure [place] [facility] Diastolic blood 2021-10-13 15:39:00 82 mm[Hg] Unive rsity of pressure [place] [facility] Heart rate 2021-10-13 15:36:00 83 /min Universi ty of [place] [facility] Body temperature 2021-10-13 15:36:00 36.67 [place] Univ ersity of [place] [facility] Respiratory rate 2021-10-13 15:36:00 18 /min Univ ersity of [place] [facility] Body height 2021-10-13 15:36:00 188 cm Universi ty of [place] [facility] Body weight 2021-10-13 15:36:00 189.059 kg Universi ty of [place] [facility] BMI 2021-10-13 15:36:00 53.51 kg/m2 Universi ty of [place] [facility] Oxygen saturation in 2021-10-13 15:36:00 97 /min University of Arterial blood by [facility] fay Pulse oximetry Branch Systolic blood 2021-06-23 14:47:00 148 mm[Hg] Univer sity of pressure [place] [facility] Diastolic blood 2021-06-23 14:47:00 100 mm[Hg] Unive rsity of pressure [place] [facility] Heart rate 2021-06-23 14:47:00 89 /min Universi ty of [place] [facility] [place] Body temperature 2021-06-23 14:47:00 36.89 [place] Univ ersity of [facility] Respiratory rate 2021-06-23 14:47:00 18 /min Univ ersity of [place] [facility] Oxygen saturation in 2021-06-23 14:47:00 100 /min University of Arterial blood by [facility] Pulse oximetry Branch Body height 2021-06-23 13:07:00 188 cm Universi ty of [place] [facility] [place] Body weight 2021-06-23 13:07:00 181.439 kg Universi ty of [facility] BMI 2021-06-23 13:07:00 51.36 kg/m2 Universi ty of [place] [facility] [place] Systolic blood 2021-06-21 12:33:00 125 mm[Hg] Univer sity of pressure [place] [facility] Diastolic blood 2021-06-21 12:33:00 71 mm[Hg] Unive rsity of pressure [place] [facility] [place] Heart rate 2021-06-21 12:33:00 96 /min Universi ty of [place] [facility] [place] Body temperature 2021-06-21 12:33:00 37.06 [place] Univ ersity of [place] [facility] [place] Respiratory rate 2021-06-21 12:33:00 18 /min Univ ersity of [place] [facility] [place] Oxygen saturation in 2021-06-21 12:33:00 98 /min University of Arterial blood by [facility] Pulse oximetry Branch Body height 2021-06-21 11:33:00 188 cm Universi ty of [place] [facility] Body weight 2021-06-21 11:33:00 181.439 kg Universi ty of [place] [facility] BMI 2021-06-21 11:33:00 51.36 kg/m2 Universi ty of [place] [facility] [place] Procedures Procedure Date / Time Performed Performing Clinician Chandana e POCT MOLECULAR STREP 2022-10-07 22:54:00 Unknown, Attending Univ ersity [facility] POCT MOLECULAR STREP 2022-08-11 17:01:00 Unknown, Attending [facility] POCT MOLECULAR FLU 2022-05-17 23:15:00 Unknown, Attending [facility] POCT MOLECULAR STREP 2022-05-17 23:14:00 Unknown, Attending [facility] POCT MOLECULAR FLU 2021-10-13 15:48:00 Unknown, Attending [facility] POCT MOLECULAR STREP 2021-10-13 15:45:00 Unknown, Attending [facility] ASSIGNMENT OF BENEFITS 2021-10-13 15:31:01 Doctor Unassigned, No [facility] RAPID STREP SCREEN FOR 2021-06-23 13:44:00 Sarah Beth Sampson [facility] Encounters Start End Encounter Admission Attending Care Care Encounter Source Date/Time Date/Time Type Type Clinicians Facility Department ID 2022-10-07 2022-10-07 Outpatient Freda RUBI [facility] [id number] Univers 16:40:00 17:15:10 LUIZA [facility] 2022-10-07 2022-10-07 Urgent Luiza Rubi [facility] [id number] Univers 16:40:00 17:15:10 Care Unknown, Attending [facility] [id number] ity [facility] [id number] [place] as TL?BLEA [id number] [address] MEDICAL OFFICE BUILDING 2022-08-12 2022-08-12 Letter KYLAH Hayes [id number] Univers 00:00:00 00:00:00 (Out) Daniela EVANS [id number] it y of [facility] [id number] [place] as [id number] [address] 2022-08-11 2022-08-11 Outpatient Freda RIVERA [facility] [id number] Univers 10:20:00 11:06:43 GENI [facility] 2022-08-11 2022-08-11 Urgent Geni Rivera [facility] [id number] Univers 10:20:00 11:06:43 Care Unknown, Attending [facility] [id number] ity of [facility] [id number] Frn[place] as TL?BLEA [phone] [address] OFFICE [facility] 2022-06-10 2022-06-10 Joey Rivera [facility] [id number] Univers 00:00:00 00:00:00 [facility] [id number] it y of [facility] [id number] [place] as TL?BLEA [phone] [address] OFFICE [facility] 2022-05-18 2022-05-18 Letter KYLAH Hardy [id number] Univers 00:00:00 00:00:00 (Out) Sanjuanamarbella EVANS [id number] it y of HOSPITAL [id number] [place] as [id number] [address] 2022-05-17 2022-05-17 [facility] [id number] Univers 18:00:00 18:36:21 GENI ity [facility] 2022-05-17 2022-05-17 [facility] Miguel [facility] [id number] Univers 18:00:00 18:36:21 Care Unknown, Attending [facility] [id number] ity of [place] [id number] [place] as TL?BLEA [phone] [address] OFFICE [facility] 2021-11-09 2021-11-09 TERELL Jackson [id number] Univers 00:00:00 00:00:00 Elizabeth PEDIATRIC [id number] ity [id number] [phone] [address] [facility] 2021-10-14 2021-10-14 Letter KYLAH Hayes [id number] Univers 00:00:00 00:00:00 (Out) Daniela MATHURY [id number] it y of HOSPITAL [id number] [place] as [phone] [place] [address] Branch 2021-10-13 2021-10-13 Outpatient R CINDI [facility] [id number] Univers 10:45:00 11:10:45 ELIZABETH bella [facility] 2021-10-13 2021-10-13 Urgent Elizabeth Puente [id number] Univers 10:45:00 11:10:45 Care Unknown, Attending PEDIATRIC 350.1.13. 10 [place]y [place]2.[place] [phone] [facility] PRIMARY [facility] CARE CLINIC 2021-10-13 2021-10-13 Orders Doctor KYLAH [id number] Univers 00:00:00 00:00:00 Only Unassigned, NATHAN [id number] ity of [place] [facility] [id number] [place] as [phone] [place] [address] Branch 2021-06-23 2021-06-23 Emergency [id number] Univers 07:02:00 08:49:00 SARAH BETH [facility] 2021-06-23 2021-06-23 Emergency [facility] [id number] Univers 07:02:00 08:49:00 [facility] [id number] [id number] [id number] [address] ([facility]) 2021-06-21 2021-06-21 Emergency [facility] [id number] [employer] 05:23:00 06:34:00 JAVI taydivine [facility] 2021-06-21 2021-06-21 Emergency [facility] [id number] [employer] 05:23:00 06:34:00 Javi Barba [facility] [id number] [id number] [id number] [address] ([facility]) 2020-12-12 2020-12-12 Emergency E DANY GARCIA [facility] [id number] 11:12:00 12:11:[address] [facility] 2020-12-09 2020-12-09 Emergency [id number] 07:13:00 09:52:00 , [facility] Results Test Description Test Time Test Comments Results Result Comments Source POCT MOLECULAR STREP 2022-10-07 23:01:59 Test Item Value Reference Range Interpretation Comme nts POCT Molecular Strep (test code = 61194-2) Negative Negative Lab Interpretation (test code = 57730-4) Normal [facility] MOLECULAR [id number] 17:09:16 Test Item Value Reference Range Interpretation Comments POCT Molecular Strep (test code = Negative Negative 57630-9) Lab Interpretation (test code = Normal 54677-5) [facility] MOLECULAR [id number] 23:27:42 Test Item Value Reference Range Interpretation Comments POCT Molecular FluA (test code = Negative Negative 66697-3) POCT Molecular FluB (test code = Negative Negative 41175-4) Lab Interpretation (test code = Normal 26719-4) [facility] MOLECULAR [id number] 23:22:56 Test Item Value Reference Range Interpretation Comments POCT Molecular Strep (test code = Negative Negative 13733-4) Lab Interpretation (test code = Normal 49799-5) [facility] MOLECULAR [id number] 15:59:44 Test Item Value Reference Range Interpretation Comments POCT Molecular FluA (test code = Negative Negative 38538-5) POCT Molecular FluB (test code = Negative Negative 49829-7) Lab Interpretation (test code = Normal 17156-0) [facility] MOLECULAR [id number] 15:53:01 Test Item Value Reference Range Interpretation Comments POCT Molecular Strep (test code = Negative Negative 29519-4) Lab Interpretation (test code = Normal 78854-0) [facility]
[2023-01-16 18:52] LABS: Specific Gravity 1.025 (1.005-1.030); Urine Bacteria None Seen /HPF (<20); Urine Bilirubin NEGATIVE (Negative); Urine Blood Trace (Negative); Urine Clarity Clear (Clear); Urine Color Light-Yellow (Yellow); Urine Glucose NEGATIVE (Negative); Urine Mucus Slight /HPF (None Seen); Urine Protein NEGATIVE (Negative); Urine RBC <5 /HPF (None Seen); Urine Urobilinogen Normal (Normal); Urine pH 5.5 (5.0-7.0)
[2023-01-16 18:58] LABS: Absolute Lymphocytes (CBC) 1.7 K/uL (0.7-4.9); Hematocrit 41.8 % (39.6-49.0); Lymphocytes % 16.1 % (15.3-44.8); MCV 81.6 fL (80-100); RBC Red Blood Cell Count 5.12 M/uL (4.33-5.43)
[2023-01-16] MEDS ORDERED: KETOROLAC 30 MG/ML INJ ONE (19:00)
[2023-01-16] MEDS ORDERED: NA CHLORIDE 0.9% 1,000 ML ONE (19:00)
[2023-01-16] MEDS ORDERED: FAMOTIDINE 20 MG/2 ML VIAL IV ONE (19:00)
[2023-01-16 19:31] LABS: Albumin 3.7 g/dL (3.4-5.0); Bilirubin Total 0.3 mg/dL (0.2-1.0); Potassium 3.7 mEq/L (3.5-5.1); Protein, Total 7.9 g/dL (6.4-8.2)
--- NOTE | 2023-01-16 20:07 | RAD REPORT ---
EXAM DESCRIPTION: CT - Abdomen Pelvis W Contrast - 01/16/2023 7:53 pm CLINICAL HISTORY: Abdominal pain COMPARISON: October 2022 TECHNIQUE: Computed axial tomography of the abdomen pelvis was obtained. 98 cc Isovue-300 was admini stered intravenously. Oral contrast was not requested which limits evaluation of bowel and appendix All CT scans are performed using dose optimization technique as appropriate and may include automated exposure control or mA/KV adjustment according to patient size. FINDINGS: The liver, spleen, pancreas, adrenal and kidneys appear unremarkable. There is no evidence of diverticulitis. Normal appendix IMPRESSION: No acute abnormality is displayed.
--- NOTE | 2023-01-16 20:07 | EDPHYS ---
Physician Documentation [facility] Name: Ziyad Parker Age: 27 yrs Sex: Male : 1995 Arrival Date: 01/16/2023 Time: 18:15 Bed 7 Private MD: ED Physician Chon Dalal HPI: 01/16 19:35 This 27 yrs old Male presents to ER via Ambulatory with complaints of yogesh Abdominal Pain. 19:35 The patient presents with abdominal pain in the periumbilical area. abdominal yogesh distention in the upper abdomen, in the lower abdomen. Onset: The symptoms/episode began/occurred this morning, today. The symptoms radiate to the right flank. Associated signs and symptoms: Pertinent positives: nausea and vomiting. The symptoms are described as crampy. Modifying factors: The symptoms are alleviated by nothing, the symptoms are aggravated by nothing. Severity of pain: At its worst the pain was moderate in the emergency department the pain is unchanged. The patient has not experienced similar symptoms in the past. Historical: - Allergies: 18:34 No Known Allergies; ml4 - PMHx: 18:34 Sleep Apnea; ml4 - PSHx: 18:34 None; ml4 - Immunization history:: Adult Immunizations up to date, Client reports receiving the 2nd dose of the Covid vaccine. - Social history:: Smoking status: Patient denies any tobacco usage or history of. Patient/guardian denies using alcohol, street drugs, IV drugs. - Family history:: not pertinent. ROS: 19:35 Constitutional: Negative for fever, chills, and weight loss, Eyes: Negative for injury, yogesh pain, redness, and discharge, ENT: Negative for injury, pain, and discharge, Neck: Negative for injury, pain, and swelling, Cardiovascular: Negative for chest pain, palpitations, and edema, Respiratory: Negative for shortness of breath, cough, wheezing, and pleuritic chest pain, Back: Negative for injury and pain, : Negative for injury, bleeding, discharge, and swelling, MS/Extremity: Negative for injury and deformity, Skin: Negative for injury, rash, and discoloration, Neuro: Negative for headache, weakness, numbness, tingling, and seizure, Psych: Negative for depression, anxiety, suicide ideation, homicidal ideation, and hallucinations, Allergy/Immunology: Negative for hives, rash, and allergies, Endocrine: Negative for neck swelling, polydipsia, polyuria, polyphagia, and marked weight changes, Hematologic/Lymphatic: Negative for swollen nodes, abnormal bleeding, and unusual bruising. 19:35 Abdomen/GI: Positive for abdominal pain, nausea and vomiting, of the umbilical area and right lower quadrant. Exam: 19:35 Constitutional: This is a well developed, well nourished patient who is awake, alert, yogesh and in no acute distress. Head/Face: Normocephalic, atraumatic. Eyes: Pupils equal round and reactive to light, extra-ocular motions intact. Lids and lashes normal. Conjunctiva and sclera are non-icteric and not injected. Cornea within normal limits. Periorbital areas with no swelling, redness, or edema. ENT: Nares patent. No nasal discharge, no septal abnormalities noted. Tympanic membranes are normal and external auditory canals are clear. Oropharynx with no redness, swelling, or masses, exudates, or evidence of obstruction, uvula midline. Mucous membranes moist. Neck: Trachea midline, no thyromegaly or masses palpated, and no cervical lymphadenopathy. Supple, full range of motion without nuchal rigidity, or vertebral point tenderness. No Meningismus. Chest/axilla: Normal chest wall appearance and motion. Nontender with no deformity. No lesions are appreciated. Cardiovascular: Regular rate and rhythm with a normal S1 and S2. No gallops, murmurs, or rubs. Normal PMI, no JVD. No pulse deficits. Respiratory: Lungs have equal breath sounds bilaterally, clear to auscultation and percussion. No rales, rhonchi or wheezes noted. No increased work of breathing, no retractions or nasal flaring. Back: No spinal tenderness. No costovertebral tenderness. Full range of motion. Male : Normal genitalia with no discharge or lesions. Skin: Warm, dry with normal turgor. Normal color with no rashes, no lesions, and no evidence of cellulitis. MS/ Extremity: Pulses equal, no cyanosis. Neurovascular intact. Full, normal range of motion. Neuro: Awake and alert, GCS 15, oriented to person, place, time, and situation. Cranial nerves II-XII grossly intact. Motor strength 5/5 in all extremities. Sensory grossly intact. Cerebellar exam normal. Normal gait. Psych: Awake, alert, with orientation to person, place and time. Behavior, mood, and affect are within normal limits. 19:35 Abdomen/GI: Inspection: distension, Bowel sounds: normal, in all quadrants, Palpation: mild abdominal tenderness, in the umbilical area and right lower quadrant, Liver: no appreciated palpable abnormalities, Hernia: not appreciated. Vital Signs: 18:32 Pulse 96; Resp 18; Temp 99(T); Pulse Ox 98% on R/A; Weight 181.44 kg; Height 6 ft. 2 ml4 in. ; Pain 5/10; 18:43 BP 136 / 74; ml4 19:00 BP 147 / 60; Pulse 87; Resp 18 S; Pulse Ox 98% on R/A; ha1 20:24 BP 125 / 63; Pulse 82; Resp 20 S; Pulse Ox 98% ; ha1 18:32 Body Mass Index 51.36 (181.44 kg, 187.96 cm) ml4 18:32 Pain Scale: Adult ml4 MDM: 18:20 Patient medically screened. [facility] 19:40 Differential diagnosis: appendicitis, bowel obstruction, Cholelithiasis, yogesh diverticulitis, myocardia ischemia or infarction, non-specific abd pain, pancreatitis, urinary tract infection. Data reviewed: vital signs, nurses notes, lab test result(s), radiologic studies, CT scan. Consideration of Admission/Observation Escalation of care including admission/observation considered. I considered the following discharge prescriptions or medication management in the emergency department Medications were administered in the Emergency Department. See MAR. Test considered but Not performed: EKG: no ekg. Care significantly affected by the following chronic conditions: Obesity. 01/16 18:22 Order name: CBC with Diff; Complete Time: 19:06 [facility] 01/16 18:22 Order name: CMP; Complete Time: 19:51 [facility] 01/16 18:22 Order name: Lipase; Complete Time: 19:51 [facility] 01/16 18:22 Order name: Urinalysis w/ reflexes; Complete Time: 19:06 [facility] 01/16 18:22 Order name: CT Abd/Pelvis - IV Contrast Only [facility] 01/16 18:22 Order name: IV Saline Lock; Complete Time: 18:51 [facility] 01/16 18:22 Order name: Labs collected and sent; Complete Time: 18:51 [facility] Administered Medications: 18:50 Not Given (Patient Refused): morphine IVP or IV 4 mg IVP once over 4 mins cm10 18:58 Drug: NS 0.9% IV 1000 ml Route: IV; Rate: 1 bolus; Site: right antecubital; cm10 18:58 Drug: Famotidine IVP 20 mg Route: IVP; Site: right antecubital; cm10 18:58 Drug: Ketorolac IVP 30 mg Route: IVP; Site: right antecubital; cm10 Disposition Summary: 01/16/23 20:06 Discharge Ordered Location: Home yogesh Problem: new yogesh Symptoms: have improved yogesh Condition: Stable yogesh Diagnosis - Abdominal pain, unspecified yogesh - Vomiting yogesh Followup: yogesh - With: Private Physician - When: 2 - 3 days - Reason: Recheck today's complaints, Continuance of care, Re-evaluation by your physician Followup: yogesh - With: Rudy Soares MD - When: 2 - 3 days - Reason: Recheck today's complaints, Re-evaluation by your physician Discharge Instructions: - Discharge Summary Sheet yogesh - Abdominal Pain, Adult yogesh - Abdominal Pain, Adult, [id number] yogesh - Vomiting, Adult yogesh Forms: - Medication Reconciliation Form yogesh - Thank You Letter yogesh - Antibiotic Education yogesh - Prescription Opioid Use [facility] Prescriptions: - Pepcid 20 mg Oral Tablet - take 1 tablet by ORAL route every 12 hours; 42 tablet; Refills: 0, Product yogesh Selection Permitted - dicyclomine 20 mg Oral Tablet - take 1 tablet by ORAL route 4 times per day; 28 tablet; Refills: 0, Product yogesh Selection Permitted - ondansetron 8 mg Oral tablet,disintegrating - take 1 tablet by ORAL route every 8 hours; 15 tablet; Refills: 0, Product yogesh Selection Permitted Signatures: Dispatcher [employer] Chon Griffith MD MD cha Martinez, Clarissa, RN RN cm10 Manolo, RNIII, Darrel, RN RN ml4
--- NOTE | 2023-01-16 20:07 | ER ---
Nurse's Notes [facility] Name: Ziyad Parker Age: 27 yrs Sex: Male : 1995 Arrival Date: 01/16/2023 Time: 18:15 Bed 7 Private MD: Diagnosis: Abdominal pain, unspecified;Vomiting Presentation: 01/16 18:32 Chief complaint: Patient states: R periumbilical pain yesterday now radiating to RLQ ml4 since 1 hr ago, endorses nausea and 1 episode vomiting, denies diarrhea. Coronavirus screen: At this time, the client does not indicate any symptoms associated with coronavirus-19. Ebola Screen: No symptoms or risks identified at this time. Initial Sepsis Screen: Does the patient meet any 2 criteria? No. Patient's initial sepsis screen is negative. Does the patient have a suspected source of infection? No. Patient's initial sepsis screen is negative. Risk Assessment: Do you want to hurt yourself or someone else? Patient reports no desire to harm self or others. Onset of symptoms was January 16, 2023. Care prior to arrival: None. Activity prior to arrival: None. 18:32 Method Of Arrival: Ambulatory ml4 18:32 Acuity: EDUIN 3 ml4 Triage Assessment: 18:34 General: Appears in no apparent distress. uncomfortable, Behavior is calm, cooperative, ml4 appropriate for age. Pain: Complains of pain in umbilical area and right lower quadrant Pain currently is 5 out of 10 on a pain scale. Quality of pain is described as Pain began gradually, 1 day ago. Is continuous, Alleviated by nothing. Also complains of nausea. EENT: No deficits noted. No signs and/or symptoms were reported regarding the EENT system. Neuro: No deficits noted. Level of Consciousness is awake, alert, obeys commands, Oriented to person, place, time, situation, Speech is normal. Cardiovascular: No deficits noted. Capillary refill < 3 seconds. Respiratory: No deficits noted. Airway is patent Respiratory effort is even, unlabored, Respiratory pattern is regular, symmetrical. GI: Reports lower abdominal pain, nausea, vomiting, Patient currently denies diarrhea. : No deficits noted. No signs and/or symptoms were reported regarding the genitourinary system. Derm: No deficits noted. No signs and/or symptoms reported regarding the dermatologic system. Musculoskeletal: No deficits noted. No signs and/or symptoms reported regarding the musculoskeletal system. Historical: - Allergies: 18:34 No Known Allergies; ml4 - PMHx: 18:34 Sleep Apnea; ml4 - PSHx: 18:34 None; ml4 - Immunization history:: Adult Immunizations up to date, Client reports receiving the 2nd dose of the Covid vaccine. - Social history:: Smoking status: Patient denies any tobacco usage or history of. Patient/guardian denies using alcohol, street drugs, IV drugs. - Family history:: not pertinent. Screenin:00 [facility] ED Fall Risk Assessment (Adult) History of falling in the last 3 months, cm10 including since admission No falls in past 3 months (0 pts) Confusion or Disorientation No (0 pts) Intoxicated or Sedated No (0 pts) Impaired Gait No (0 pts) Mobility Assist Device Used No (0 pt) Altered Elimination No (0 pt) Score/Fall Risk Level 0 - 2 = Low Risk Oriented to surroundings, Maintained a safe environment. Abuse screen: Denies threats or abuse. Denies injuries from another. Nutritional screening: No deficits noted. Tuberculosis screening: No symptoms or risk factors identified. Assessment: 18:44 Reassessment: Last PO intake today 01/15 around 1200pm. ml4 18:59 General: Appears in no apparent distress. comfortable, Behavior is calm, cooperative. cm10 Neuro: No deficits noted. Level of Consciousness is awake, alert, obeys commands, Oriented to person, place, time, situation. Respiratory: No deficits noted. Airway is patent Respiratory effort is even, unlabored, Respiratory pattern is regular, symmetrical. GI: Bowel sounds present X 4 quads. Abd is soft X 4 quads Abdomen is tender to palpation in right upper quadrant and right lower quadrant. 20:22 Reassessment: Patient and/or family updated on plan of care and expected duration. Pain ha1 level reassessed. Patient is alert, oriented x 3, equal unlabored respirations, skin warm/dry/pink. Patient states feeling better. Patient states symptoms have improved. Neuro: Level of Consciousness is awake, alert, obeys commands, Oriented to person, place, time, situation. Respiratory: Airway is patent Respiratory effort is even, unlabored, Respiratory pattern is regular, symmetrical. Vital Signs: 18:32 Pulse 96; Resp 18; Temp 99(T); Pulse Ox 98% on R/A; Weight 181.44 kg; Height 6 ft. 2 ml4 in. ; Pain 5/10; 18:43 BP 136 / 74; ml4 19:00 BP 147 / 60; Pulse 87; Resp 18 S; Pulse Ox 98% on R/A; ha1 20:24 BP 125 / 63; Pulse 82; Resp 20 S; Pulse Ox 98% ; ha1 18:32 Body Mass Index 51.36 (181.44 kg, 187.96 cm) ml4 18:32 Pain Scale: Adult ml4 ED Course: 18:18 Patient arrived in ED. mr 18:20 Chon Dalal MD is Attending Physician. yogesh 18:32 Arm band placed on right wrist. ml4 18:34 Triage completed. ml4 18:43 Urine collected: void. ml4 18:44 Urinalysis w/ reflexes Sent. ml4 18:51 CBC with Diff Sent. iw 18:51 CMP Sent. iw 18:51 Lipase Sent. iw 18:51 Urinalysis w/ reflexes Sent. iw 19:00 Initial lab(s) drawn, by mo, sent to lab. Inserted saline lock: 20 gauge in right cm10 antecubital area, using aseptic technique. Blood collected. 19:01 Patient has correct armband on for positive identification. Bed in low position. Call cm10 light in reach. Side rails up X2. 19:54 CT Abd/Pelvis - IV Contrast Only In Process Unspecified. EDMS 20:07 Rudy Soares MD is Referral Physician. yogesh 20:23 No provider procedures requiring assistance completed. IV discontinued, intact, ha1 bleeding controlled, No redness/swelling at site. Pressure dressing applied. Administered Medications: 18:50 Not Given (Patient Refused): morphine IVP or IV 4 mg IVP once over 4 mins cm10 18:58 Drug: NS 0.9% IV 1000 ml Route: IV; Rate: 1 bolus; Site: right antecubital; cm10 18:58 Drug: Famotidine IVP 20 mg Route: IVP; Site: right antecubital; cm10 18:58 Drug: Ketorolac IVP 30 mg Route: IVP; Site: right antecubital; cm10 Medication: 19:01 VIS not applicable for this client. cm10 Outcome: 20:06 Discharge ordered by . yogesh 20:23 Discharged to home ambulatory. ha1 20:23 Condition: stable 20:23 Discharge instructions given to patient, Instructed on discharge instructions, follow up and referral plans. medication usage, Demonstrated understanding of instructions, follow-up care, medications, Prescriptions given X 3. 20:25 Patient left the ED. ha1 Signatures: Dispatcher [employer] EDMS Chon Dalal MD MD cha Rivera, Mary Marzena Evans RN RN iw Ayala, Heidy, RN RN 1 Nicky Soares RN RN cm10 HELENA FrenchIII, Darrel, RN RN ml4
[2023-01-16 21:26] VITALS: TEMP 99; O2SAT 98
[2023-01-16 21:29] VITALS: BP 125/63
== END 2023-01-16 20:25 | disposition home or self-care (01) ==
LOC: ER 18:15
DX: R10.33 Periumbilical pain (principal); R11.10 Vomiting, unspecified
CPT/HCPCS: 85025; 81001; 36415; 83690; 80053; 74177; 96375; 96374; 99284; Q9967; J7030

== ENCOUNTER 2023-01-26 20:59 | Emergency (ER) | payer OTHER ==
--- OUTSIDE RECORDS SUMMARY | 2023-01-26 21:02 | XMS REPORT | Continuity of Care Document ---
:1995 Author Organization [facility] t Address [address] [place] [address] Care Team Providers Name Role Phone PCP, PATIENT DOES NOT HAVE A Primary Care Physician UnavailLUIZA Cary Attending Clinician Unavailable Luiza Patel Attending Clinician Unknown, Attending Attending Clinician Unavailable Daniela Hayes RN Attending Clinician Unavailable GENI RIVERA Attending Clinician Unavailable Geni Rivera MD Attending Clinician Sanjuana Hardy RN Attending Clinician Unavailable Elizabeth Puente PA-C Attending Clinician ELIZABETH PUENTE Attending Clinician Unavailable Doctor Unassigned, [place] Attending Clinician Unavailable SARAH BETH SAMPSON Attending Clinician Unavailable Sarah Beth Sampson MD Attending Clinician JAVI REARDON Attending Clinician Unavailable DANY GARCIA Attending Clinician Unavailable SULTANA OLGUIN Attending Clinician Unavailable Payers Payer Name Policy Type Policy Number Effective Date Expiration Date Bernabe KOTHARI [id number] 2021 00:00:00 Problems Condition Condition Condition Status Onset Resolution Last Treating Co mments Source Name Details Category Date Date Treatment Clinician Date No known No known Disease Unive rs active active ity of problems problems [facility] Allergies, Adverse Reactions, Alerts Allergy Allergy Status Severity Reaction(s) Onset Inactive Treating Comm ents Source Name Type Date Date Clinician NO KNOWN Drug Active Univers ALLERGIE Class ity of S [facility] Social History Social Habit Start Date Stop Date Quantity Comments Source History of Cigarette Smoker Universi ty of tobacco use [facility] Exposure to 2022-08-01 2022-08-11 Not sure [facility] SARS-CoV-2 00:00:00 10:21:00 [facility] (event) [place] Tobacco use and 2022-08-11 2022-08-11 Smokeless tobacco Un iversity of exposure 00:00:00 00:00:00 non-user [facility] Sex Assigned At [birth year] Universit y of 00:00:00 00:00:00 [facility] Smoking Status Start Date Stop Date Source Tobacco smoking [facility] [place] consumption unknown Medical Bran ch Ex-smoker 2022-08-11 00:00:00 2022-08-11 [place] [facility] [place] 00:00:00 [facility] Medications Ordered Filled Start Stop Current Ordering Indication Dosage Frequency Signature Comments Components Source Medication Medication Date Date Medication? Clinician (SIG) Name Name monica Yes [id number] Z pack as Univers n 3-07 directed. ity of (ZITHROMAX 00:00: [place] Z-JAY) 250 00 Medical mg tablet Branch benzonatate 2022- No [id number] 200mg Take 1 Univers 200 mg 10-07 03-18 capsule by ity of capsule 00:00: 04:59 mouth 3 [place] 00 :00 (three) Medical times Branch daily as needed for Cough for up to 10 days. ondansetron 2022- No [id number] 4mg Take 1 Univers 4 mg 10-07 03-13 tablet by ity of disintegrat 00:00: 04:59 [place] :00 every 8 Medica l (eight) Branch hours as needed for Nausea and Vomiting (N/V) for up to 5 days. benzonatate Yes [id number] 200mg Take 2 Univers 100 mg 1-09 capsules ity of capsule 00:00: by mouth [place] 00 every 8 Medical (eight) Branch hours as needed for Cough. bromphenira Yes [id number] 10mL Take 10 mL Univers mine-pseudo 1-09 by mouth 4 it y of ephedrine-D 00:00: ([place] (BROMF[place] 00 times Medical DM) 2-30-10 daily as Bran ch mg/5 mL needed for syrup Congestion /Allergies . benzonatate 2022-0 Yes [id number] 200mg Take 2 Univers 100 mg 1-09 capsules ity of capsule 00:00: by mouth [place] 00 every 8 Medical (eight) Branch hours as needed for Cough. bromphenira 2022-0 Yes [id number] 10mL Take 10 mL Univers mine-pseudo 1-09 by mouth 4 it y of ephedrine-D 00:00: (four[place] (BROMF[place] 00 times Medical DM) 2-30-10 daily as Bran ch mg/5 mL needed for syrup Congestion /Allergies . benzonatate 2022-0 Yes [id number] 200mg Take 2 Univers 100 mg 1-09 capsules ity of capsule 00:00: by mouth [place] 00 every 8 Medical (eight) Branch hours as needed for Cough. bromphenira 2022-0 Yes [id number] 10mL Take 10 mL Univers mine-pseudo 1-09 by mouth 4 it y of ephedrine-D 00:00: (four[place] (BROMF[place] 00 times Medical DM) 2-30-10 daily as Bran ch mg/5 mL needed for syrup Congestion /Allergies . amoxicillin 2022-2022- No [id number] 1{tbl} Take 1 Univers -clavulanat 08-11 tablet by it y of e 00:00: 05:59 mouth in [place] (AUGMENTIN) 00 :00 the Medical 875-125 mg morning Branch per tablet and 1 tablet in the evening. Do all this for 7 days. amoxicillin 2022-0 2022- No [id number] 1{tbl} Take 1 Univers -clavulanat 08-11-17 tablet by it y of e 00:00: 05:59 mouth in [place] (AUGMENTIN) 00 :00 the Medical 875-125 mg morning Branch per tablet and 1 tablet in the evening. Do all this for 7 days. busPIRone 2021-08 Yes 10mg Take 10 mg Un sukhdeep 10 mg 0-15 by mouth ity of tablet 17:59: in the [place] [address] morning Medical and 10 mg Branch in the evening. busPIRone 2021-08 Yes 10mg Take 10 mg Un sukhdeep 10 mg 0-15 by mouth ity of tablet 17:59: in the [place] [address] morning Medical and 10 mg Branch in the evening. busPIRone 2021-08 Yes 10mg Take 10 mg Un sukhdeep 10 mg 0-15 by mouth ity of tablet 17:59: in the [place] [address] morning Medical and 10 mg Branch in the evening. busPIRone 2021-08 Yes 10mg Take 10 mg Un sukhdeep 10 mg 0-15 by mouth ity of tablet 17:59: in the [place] [address] morning Medical and 10 mg Branch in the evening. busPIRone 2021-08 Yes 10mg Take 10 mg Un sukhdeep 10 mg 0-15 by mouth ity of tablet 17:59: in the [place] [address] morning Medical and 10 mg Branch in the evening. busPIRone 2021-08 Yes 10mg Take 10 mg Un sukhdeep 10 mg 0-15 by mouth ity of tablet 17:59: in the [place] [address] morning Medical and 10 mg Branch in the evening. benzonatate 2021-08 Yes [id number] 200mg Take 2 Univers 100 mg 0-15 capsules ity of capsule 00:00: by mouth [place] 00 every 8 Medical (eight) Branch hours as needed for Cough. guaiFENesin 2021-08 Yes [id number] 400mg Take 1 Univers 400 mg 0-15 tablet by ity of tablet 00:00: mouth [place] 00 every 4 Medical (four) Branch hours as needed for Cough. albuterol 2021-08 Yes [id number] 2{puff} Inhale 2 Univers 90 0-15 Puffs ity of mcg/actuati 00:00: every 6 [place] on inhaler 00 (six) Medical hours as Branch needed for Chest tightness. benzonatate 2021-08 Yes [id number] 200mg Take 2 Univers 100 mg 0-15 capsules ity of capsule 00:00: by mouth [place] 00 every 8 Medical (eight) Branch hours as needed for Cough. guaiFENesin 2021-08 Yes [id number] 400mg Take 1 Univers 400 mg 0-15 tablet by ity of tablet 00:00: mouth [place] 00 every 4 Medical (four) Branch hours as needed for Cough. albuterol 2021-08 Yes [id number] 2{puff} Inhale 2 Univers 90 0-15 Puffs ity of mcg/actuati 00:00: every 6 [place] on inhaler 00 (six) Medical hours as Branch needed for Chest tightness. benzonatate 2021-08 Yes [id number] 200mg Take 2 Univers 100 mg 0-15 capsules ity of capsule 00:00: by mouth [place] 00 every 8 Medical (eight) Branch hours as needed for Cough. guaiFENesin 2021-08 Yes [id number] 400mg Take 1 Univers 400 mg 0-15 tablet by ity of tablet 00:00: mouth [place] 00 every 4 Medical (four) Branch hours as needed for Cough. albuterol 2021-08 Yes [id number] 2{puff} Inhale 2 Univers 90 0-15 Puffs ity of mcg/actuati 00:00: every 6 [place] on inhaler 00 (six) Medical hours as Branch needed for Chest tightness. guaiFENesin 2021-08 Yes [id number] 400mg Take 1 Univers 400 mg 0-15 tablet by ity of tablet 00:00: mouth [place] 00 every 4 Medical (four) Branch hours as needed for Cough. albuterol 2021-08 Yes [id number] 2{puff} Inhale 2 Univers 90 0-15 Puffs ity of mcg/actuati 00:00: every 6 [place] on inhaler 00 (six) Medical hours as Branch needed for Chest tightness. guaiFENesin 2021-08 Yes [id number] 400mg Take 1 Univers 400 mg 0-15 tablet by ity of tablet 00:00: mouth [place] 00 every 4 Medical (four) Branch hours as needed for Cough. albuterol 2021-08 Yes [id number] 2{puff} Inhale 2 Univers 90 0-15 Puffs ity of mcg/actuati 00:00: every 6 [place] on inhaler 00 (six) Medical hours as Branch needed for Chest tightness. guaiFENesin 2021-08 Yes [id number] 400mg Take 1 Univers 400 mg 0-15 tablet by ity of tablet 00:00: mouth [place] 00 every 4 Medical (four) Branch hours as needed for Cough. albuterol 2021-08 Yes [id number] 2{puff} Inhale 2 Univers 90 0-15 Puffs ity of mcg/actuati 00:00: every 6 [place] on inhaler 00 (six) Medical hours as Branch needed for Chest tightness. benzonatate 2021-08- No [id number] 200mg Take 2 Univers 100 mg 0-15 -09 capsules ity of capsule 00:00: 00:00 by mouth [place] 00 :00 every 8 Medical (eight) Branch hours as needed for Cough. fluticasone 2021-0 Yes [id number] 2{spray Use 2 Univers propionate 3-13 } Sprays in ity of 50 00:00: each [place] mcg/actuati 00 nostril Medic al on nasal daily. Branch spray fluticasone 0 Yes [id number] 2{spray Use 2 Univers propionate 3-13 } Sprays in ity of 50 00:00: each [place] mcg/actuati 00 nostril Medic al on nasal daily. Branch spray fluticasone 0 Yes [id number] 2{spray Use 2 Univers propionate 3-13 } Sprays in ity of 50 00:00: each [place] mcg/actuati 00 nostril Medic al on nasal daily. Branch spray fluticasone 2021-0 Yes [id number] 2{spray Use 2 Univers propionate 3-13 } Sprays in ity of 50 00:00: each [place] mcg/actuati 00 nostril Medic al on nasal daily. Branch spray fluticasone Yes [id number] 2{spray Use 2 Univers propionate 3-13 } Sprays in ity of 50 00:00: each [place] mcg/actuati 00 nostril Medic al on nasal daily. Branch spray fluticasone Yes [id number] 2{spray Use 2 Univers propionate 3-13 } Sprays in ity of 50 00:00: each [place] mcg/actuati 00 nostril Medic al on nasal daily. Branch spray fluticasone 0 Yes [id number] 2{spray Use 2 Univers propionate 3-13 } Sprays in ity of 50 00:00: each [place] mcg/actuati 00 nostril Medic al on nasal daily. Branch spray bromphenira 0 Yes [id number] 10mL Take 10 mL Univers mine-pseudo 3-13 by mouth 3 it y of ephedrine-D 00:00: (three) [place] M (BROMFED 00 times Medical DM) 2-30-10 daily as Bran ch mg/5 mL needed for syrup Cough. fluticasone 2021-0 Yes [id number] 2{spray Use 2 Univers propionate 3-13 } Sprays in ity of 50 00:00: each [place] mcg/actuati 00 nostril Medic al on nasal daily. Branch spray bromphenira Yes [id number] 10mL Take 10 mL Univers mine-pseudo 3-13 by mouth 3 it y of ephedrine-D 00:00: (three) [place] M (BROMFED 00 times Medical DM) 2-30-10 daily as Bran ch mg/5 mL needed for syrup Cough. fluticasone Yes [id number] 2{spray Use 2 Univers propionate 3-13 } Sprays in ity of 50 00:00: each [place] mcg/actuati 00 nostril Medic al on nasal daily. Branch spray bromphenira Yes [id number] 10mL Take 10 mL Univers mine-pseudo 3-13 by mouth 3 it y of ephedrine-D 00:00: (three) [place] M (BROMFED 00 times Medical DM) 2-30-10 daily as Bran ch mg/5 mL needed for syrup Cough. bromphenira 2021- No [id number] 10mL Take 10 mL Univers mine-pseudo 3-13 10-15 by mouth 3 i ty of ephedrine-D 00:00: 00:00 (three) [place] (BROMFED 00 :00 times Medical DM) 2-30-10 daily as Bran ch mg/5 mL needed for syrup Cough. bromphenira 2020-08 Yes [id number] 5mL Take 5 mL Univers mine-pseudo 1-21 by mouth 4 it y of ephedrine-D 00:00: (four[place] (BROMFED 00 times Medical DM) 2-30-10 daily as Bran ch mg/5 mL needed for syrup Cold symptoms. bromphenira 2020-08 Yes [id number] 5mL Take 5 mL Univers mine-pseudo 1-21 by mouth 4 it y of ephedrine-D 00:00: (four[place] (BROMFED 00 times Medical DM) 2-30-10 daily as Bran ch mg/5 mL needed for syrup Cold symptoms. bromphenira 2020-08 Yes [id number] 5mL Take 5 mL Univers mine-pseudo 1-21 by mouth 4 it y of ephedrine-D 00:00: (four[place] (BROMFED 00 times Medical DM) 2-30-10 daily as Bran ch mg/5 mL needed for syrup Cold symptoms. bromphenira 2020-08 Yes [id number] 5mL Take 5 mL Univers mine-pseudo 1-21 by mouth 4 it y of ephedrine-D 00:00: (four) [place] (BROMFED 00 times Medical DM) 2-30-10 daily as Bran ch mg/5 mL needed for syrup Cold symptoms. bromphenira 2020-08 Yes [id number] 5mL Take 5 mL Univers mine-pseudo 1-21 by mouth 4 it y of ephedrine-D 00:00: (four) [place] (BROMFED 00 times Medical DM) 2-30-10 daily as Bran ch mg/5 mL needed for syrup Cold symptoms. bromphenira 2020-08 Yes [id number] 5mL Take 5 mL Univers mine-pseudo 1-21 by mouth 4 it y of ephedrine-D 00:00: (four) [place] (BROMFED times Medical DM) 2-30-10 daily as Bran ch mg/5 mL needed for syrup Cold symptoms. benzonatate 2020-08 Yes [id number] 100mg Take 1 Univers 100 mg 1-21 capsule by ity of capsule 00:00: mouth 3 (three) Medical times Branch daily as needed for Cough. bromphenira 2020-08 Yes [id number] 5mL Take 5 mL Univers mine-pseudo 1-21 by mouth 4 it y of ephedrine-D 00:00: (four) [place] (BROMFED 00 times Medical DM) 2-30-10 daily as Bran ch mg/5 mL needed for syrup Cold symptoms. benzonatate 2020-08 Yes [id number] 100mg Take 1 Univers 100 mg 1-21 capsule by ity of capsule 00:00: mouth 3 (three) Medical times Branch daily as needed for Cough. bromphenira 2020-08 Yes [id number] 5mL Take 5 mL Univers mine-pseudo 1-21 by mouth 4 it y of ephedrine-D 00:00: (four) [place] (BROMFED 00 times Medical DM) 2-30-10 daily as Bran ch mg/5 mL needed for syrup Cold symptoms. bromphenira 2020-08 Yes [id number] 5mL Take 5 mL Univers mine-pseudo 1-21 by mouth 4 it y of ephedrine-D 00:00: (four) [place] (BROMFED 00 times Medical DM) 2-30-10 daily as Bran ch mg/5 mL needed for syrup Cold symptoms. bromphenira 2020-08 Yes [id number] 5mL Take 5 mL Univers mine-pseudo 1-21 by mouth 4 it y of ephedrine-D 00:00: (four) [place] (BROMFED 00 times Medical DM) 2-30-10 daily as Bran ch mg/5 mL needed for syrup Cold symptoms. bromphenira 2020-08 Yes [id number] 5mL Take 5 mL Univers mine-pseudo 1-21 by mouth 4 it y of ephedrine-D 00:00: (four) [place] (BROMFED 00 times Medical DM) 2-30-10 daily as Bran ch mg/5 mL needed for syrup Cold symptoms. benzonatate 2020-08 No [id number] 100mg Take 1 Univers 100 mg 08-23 [...] 06/21/21 at 0600, STAT benzonatate 2020-08 Yes [id number] 100mg Take 1 Univers 100 mg -19 capsule by ity of capsule 00:00: mouth 3 [place] 00 (three) Medical times Branch daily as needed for Cough. benzonatate 2020-08 Yes [id number] 100mg Take 1 Univers 100 mg - capsule by ity of capsule 00:00: mouth 3 [place] 00 (three) Medical times Branch daily as needed for Cough. benzonatate 2020-08 Yes [id number] 100mg Take 1 Univers 100 mg 1-19 capsule by ity of capsule 00:00: mouth 3 [place] 00 (three) Medical times [place] daily as needed for Cough. benzonatate 2020-08- No [id number] 100mg Take 1 Univers 100 mg 1-19 03-13 capsule by ity of capsule 00:00: 00:00 mouth 3 [place] 00 :00 (three) Medical times [place] daily as needed for Cough. Vital Signs Vital Name Observation Time Observation Value Comments Source Systolic blood 2022-10-07 22:53:00 138 mm[Hg] Univer sity of [facility] Diastolic blood 2022-10-07 22:53:00 88 mm[Hg] [facility] Heart rate 2022-10-07 22:53:00 108 /min [facility] Body temperature 2022-10-07 22:53:00 37.33 [facility] Respiratory rate 2022-10-07 22:53:00 16 /min [facility] Body height 2022-10-07 22:53:00 188 cm [facility] Body weight 2022-10-07 22:53:00 190.828 kg [facility] BMI 2022-10-07 22:53:00 54.01 kg/m2 [facility] Oxygen saturation in 2022-10-07 22:53:00 96 /min [facility] Arterial blood by [facility] [place] Pulse oximetry Branch Systolic blood 2022-08-11 16:54:00 131 mm[Hg] Univer sity of [facility] Diastolic blood 2022-08-11 16:54:00 77 mm[Hg] [facility] Heart rate 2022-08-11 16:54:00 91 /min [facility] Body temperature 2022-08-11 16:54:00 37 [facility] Respiratory rate 2022-08-11 16:54:00 16 /min [facility] Body height 2022-08-11 16:54:00 188 cm [facility] Body weight 2022-08-11 16:54:00 183.072 kg Universi ty of [place] [facility] BMI 2022-08-11 16:54:00 51.82 kg/m2 Universi ty of [place] [facility] Oxygen saturation in 2022-08-11 16:54:00 97 /min University of Arterial blood by [place] [employer] fay Pulse oximetry Branch Systolic blood 2022-05-17 23:25:00 162 mm[Hg] Univer sity of pressure [place] [facility] Diastolic blood 2022-05-17 23:25:00 74 mm[Hg] Unive rsity of pressure [place] [facility] Heart rate 2022-05-17 23:01:00 96 /min Universi ty of [place] [facility] Body temperature 2022-05-17 23:01:00 36.5 Yanet Univ ersity of [place] [facility] Body height 2022-05-17 23:01:00 188 cm Universi ty of [place] [facility] Body weight 2022-05-17 23:01:00 184.342 kg Universi ty of [place] [facility] BMI 2022-05-17 23:01:00 52.18 kg/m2 Universi ty of [place] [facility] Oxygen saturation in 2022-05-17 23:01:00 95 /min University of Arterial blood by [place] [employer] fay Pulse oximetry Branch Systolic blood 2021-10-13 15:39:00 137 mm[Hg] Univer sity of pressure [place] [facility] Diastolic blood 2021-10-13 15:39:00 82 mm[Hg] Unive rsity of pressure [place] [facility] Heart rate 2021-10-13 15:36:00 83 /min Universi ty of [place] [facility] Body temperature 2021-10-13 15:36:00 36.67 Yanet Univ ersity of [place] [facility] Respiratory rate 2021-10-13 15:36:00 18 /min Univ ersity of [place] [facility] Body height 2021-10-13 15:36:00 188 cm Universi ty of [place] [facility] Body weight 2021-10-13 15:36:00 189.059 kg Universi ty of [place] [facility] BMI 2021-10-13 15:36:00 53.51 kg/m2 Universi ty of [place] [facility] Oxygen saturation in 2021-10-13 15:36:00 97 /min University of Arterial blood by [facility] fay Pulse oximetry Branch Systolic blood 2021-06-23 14:47:00 148 mm[Hg] Univer sity of pressure [place] [facility] Diastolic blood 2021-06-23 14:47:00 100 mm[Hg] Unive rsity of pressure [place] [facility] Heart rate 2021-06-23 14:47:00 89 /min Universi ty of [place] [facility] [place] Body temperature 2021-06-23 14:47:00 36.89 Yanet Univ ersity of [facility] Respiratory rate 2021-06-23 14:47:00 18 /min Univ ersity of [place] [facility] Oxygen saturation in 2021-06-23 14:47:00 100 /min University of Arterial blood by [facility] [place] Pulse oximetry Branch Body height 2021-06-23 13:07:00 188 cm Universi ty of [place] [facility] [place] Body weight 2021-06-23 13:07:00 181.439 kg Universi ty of [facility] BMI 2021-06-23 13:07:00 51.36 kg/m2 Universi ty of [place] [facility] [place] Systolic blood 2021-06-21 12:33:00 125 mm[Hg] Univer sity of pressure [place] [facility] Diastolic blood 2021-06-21 12:33:00 71 mm[Hg] Unive rsity of pressure [place] [facility] [place] Heart rate 2021-06-21 12:33:00 96 /min Universi ty of [place] [facility] [place] Body temperature 2021-06-21 12:33:00 37.06 Yanet Univ ersity of [place] [facility] [place] Respiratory rate 2021-06-21 12:33:00 18 /min Univ ersity of [place] [facility] [place] Oxygen saturation in 2021-06-21 12:33:00 98 /min University of Arterial blood by [facility] [place] Pulse oximetry Branch Body height 2021-06-21 11:33:00 188 cm Universi ty of [place] [facility] Body weight 2021-06-21 11:33:00 181.439 kg Universi ty of [place] [facility] BMI 2021-06-21 11:33:00 51.36 kg/m2 Universi ty of [place] [facility] [place] Procedures Procedure Date / Time Performed Performing Clinician Chandana e POCT MOLECULAR STREP 2022-10-07 22:54:00 Unknown, Attending Univ ersity [facility] POCT MOLECULAR STREP 2022-08-11 17:01:00 Unknown, Attending [facility] POCT MOLECULAR FLU 2022-05-17 23:15:00 Unknown, Attending [facility] POCT MOLECULAR STREP 2022-05-17 23:14:00 Unknown, Attending [facility] POCT MOLECULAR FLU 2021-10-13 15:48:00 Unknown, Attending [facility] POCT MOLECULAR STREP 2021-10-13 15:45:00 Unknown, Attending [facility] ASSIGNMENT OF BENEFITS 2021-10-13 15:31:01 Doctor Unassigned, No [facility] RAPID STREP SCREEN FOR 2021-06-23 13:44:00 Sarah Beth Sampson [facility] Encounters Start End Encounter Admission Attending Care Care Encounter Source Date/Time Date/Time Type Type Clinicians Facility Department ID 2022-10-07 2022-10-07 Outpatient Freda URBI [facility] [id number] Univers 16:40:00 17:15:10 LUIZA [facility] 2022-10-07 2022-10-07 Urgent Luiza [address]i [facility] 1.2.840.11 [id number] Univers 16:40:00 17:15:10 Care Unknown, Attending [facility] [id number] ity [facility] [id number] [place] as TL?BLEA [id number] [address] MEDICAL OFFICE BUILDING 2022-08-12 2022-08-12 Letter KYLAH Hayes [id number] Univers 00:00:00 00:00:00 (Out) Daniela EVANS [id number] it y of [facility] [id number] [place] as [phone] [address] 2022-08-11 2022-08-11 Outpatient Freda RIVERA [facility] [id number] Univers 10:20:00 11:06:43 GENI [facility] 2022-08-11 2022-08-[address] Rivera [facility] [id number] Univers 10:20:00 11:06:43 Care Unknown, Attending [facility] [id number] ity [facility] [id number] [place] as TL?BLEA [id number] [address] [facility] 2022-06-10 2022-06-[address] [facility] [id number] Univers 00:00:00 00:00:00 [facility] [id number] it y of [facility] [id number] [place] as TL?BLEA [id number] [address] [facility] 2022-05-18 2022-05-18 Letter KYLAH Hardy [id number] Univers 00:00:00 00:00:00 (Out) Sanjuanamarbella EVANS [id number] it y of HOSPITAL [id number] [place] as [id number] [address] 2022-05-17 2022-05-17 [facility] [id number] Univers 18:00:00 18:36:21 GENI ity [facility] 2022-05-17 2022-05-17 [facility] Miguel [facility] [id number] Univers 18:00:00 18:36:21 Care Unknown, Attending [facility] [id number] ity of [place] [id number] [place] as TL?BLEA [id number] [address] [facility] 2021-11-09 2021-11-09 TERELL Jackson [id number] Univers 00:00:00 00:00:00 Elizabeth PEDIATRIC [id number] [place] [id number] [address] CARE [facility] 2021-10-14 2021-10-14 Letter KYLAH Hayes [id number] Univers 00:00:00 00:00:00 (Out) Daniela MATHURY [id number] it y of HOSPITAL [id number] [place] as [phone] [place] [address] Branch 2021-10-13 2021-10-13 Outpatient R CINDI [facility] [id number] Univers 10:45:00 11:10:45 ELIZABETH bella [facility] 2021-10-13 2021-10-13 Urgent Elizabeth Puente 1.2.840.11 [id number] Univers 10:45:00 11:10:45 Care Unknown, Attending PEDIATRIC 350.1.13. 10 [place] [id number] [facility] PRIMARY [facility] Branch CARE CLINIC 2021-10-13 2021-10-13 Orders Doctor KYLAH [id number] Univers 00:00:00 00:00:00 Only Unassigned, NATHAN [id number] ity of [place] [facility] [id number] [place] as [phone] [place] [address] Branch 2021-06-23 2021-06-23 [facility] [id number] Univers 07:02:00 08:49:00 SARAH BETH [facility] 2021-06-23 2021-06-23 Emergency [facility] [facility] [id number] Univers 07:02:00 08:49:00 [facility] [id number] [id number] [id number] [address] ([facility]) 2021-06-21 2021-06-21 Emergency [facility] [id number] Univers 05:23:00 06:34:00 JAVI [facility] 2021-06-21 2021-06-21 [facility] [id number] Univers 05:23:00 06:34:00 Javi Barba [facility] [id number] [id number] [id number] [address] ([facility]) 2020-12-12 2020-12-12 Emergency E DANY GARCIA [facility] [id number] 11:12:00 12:11:[address] [facility] 2020-12-09 2020-12-09 Emergency [id number] 07:13:00 09:52:00 , [facility] Results Test Description Test Time Test Comments Results Result Comments Source POCT MOLECULAR STREP 2022-10-07 23:01:59 Test Item Value Reference Range Interpretation Comme nts POCT Molecular Strep (test code = 71942-1) Negative Negative Lab Interpretation (test code = 38229-7) Normal [facility] MOLECULAR [id number] 17:09:16 Test Item Value Reference Range Interpretation Comments POCT Molecular Strep (test code = Negative Negative 71954-0) Lab Interpretation (test code = Normal 41584-4) [facility] MOLECULAR [id number] 23:27:42 Test Item Value Reference Range Interpretation Comments POCT Molecular FluA (test code = Negative Negative 14851-0) POCT Molecular FluB (test code = Negative Negative 53425-0) Lab Interpretation (test code = Normal 19404-2) [facility] MOLECULAR [id number] 23:22:56 Test Item Value Reference Range Interpretation Comments POCT Molecular Strep (test code = Negative Negative 74701-6) Lab Interpretation (test code = Normal 05474-7) [facility] MOLECULAR [id number] 15:59:44 Test Item Value Reference Range Interpretation Comments POCT Molecular FluA (test code = Negative Negative 76927-5) POCT Molecular FluB (test code = Negative Negative 44148-4) Lab Interpretation (test code = Normal 47762-2) [facility] MOLECULAR [id number] 15:53:01 Test Item Value Reference Range Interpretation Comments POCT Molecular Strep (test code = Negative Negative 16353-6) Lab Interpretation (test code = Normal 56692-9) [facility]
[2023-01-26 22:52] LABS: Absolute Lymphocytes (CBC) 2.3 K/uL (0.7-4.9); Lymphocytes % 19.1 % (15.3-44.8); MCV 81.8 fL (80-100); MPV 7.3 fL (7.6-11.3); RBC Red Blood Cell Count 5.25 M/uL (4.33-5.43)
[2023-01-26] MEDS ORDERED: ONDANSETRON 4 MG/2 ML VIAL ONE (22:55)
[2023-01-26] MEDS ORDERED: HYDROMORPHONE HCL 1 MG/ML INJ ONE (22:55)
[2023-01-26] MEDS ORDERED: NA CHLORIDE 0.9% 1,000 ML ONE (22:56)
[2023-01-26 23:09] LABS: ALT/SGPT 52 U/L (16-61); AST/SGOT 23 U/L (15-37); Albumin 3.8 g/dL (3.4-5.0); Alkaline Phosphatase 65 U/L (45-117); BUN Blood Urea Nitrogen 12 mg/dL (7-18); Bicarbonate 29 mEq/L (21-32); Bilirubin Total 0.3 mg/dL (0.2-1.0); Glomerular Filtration Rate 106 ml/min (=/>90); Glucose Level 83 mg/dL (74-106); Lipase 51 U/L (13-75); Magnesium 2.4 mg/dL (1.6-2.4); Potassium 3.9 mEq/L (3.5-5.1); Protein, Total 7.9 g/dL (6.4-8.2); Sodium Level 137 mEq/L (136-145); Troponin High Sensitivity 8.1 pg/mL (<58.9)
[2023-01-26 23:10] LABS: Bilirubin Direct < 0.1 mg/dL (0-0.2); Bilirubin Indirect, Calculated ND mg/dL (0.2-0.8)
[2023-01-27] MEDS ORDERED: PANTOPRAZOLE 40 MG INJ ONE (02:46)
[2023-01-27] MEDS ORDERED: MAGNES/ALUMIN/SIMET 30ML UCUP ONE (02:46)
--- NOTE | 2023-01-27 03:09 | ER ---
Nurse's Notes [facility] Name: Ziyad Parker Age: 27 yrs Sex: Male : 1995 Arrival Date: 01/26/2023 Time: 20:59 Bed 20 Private MD: Diagnosis: Epigastric pain;Chest pain, unspecified Presentation: 01/26 21:47 Chief complaint: Patient states: I have been having chest pain and abdominal pain since ha1 yesterday, and before coming up to the hospital I got nausea and I threw up one time. 21:47 Coronavirus screen: Vaccine status: Patient reports receiving the 2nd dose of the covid ha1 vaccine. Date January 26, 2023. Ebola Screen: No symptoms or risks identified at this time. Initial Sepsis Screen: Does the patient meet any 2 criteria? No. Patient's initial sepsis screen is negative. Does the patient have a suspected source of infection? No. Patient's initial sepsis screen is negative. Risk Assessment: Do you want to hurt yourself or someone else? Patient reports no desire to harm self or others. Onset of symptoms was January 26, 2023. 21:47 Method Of Arrival: Ambulatory ha1 21:47 Acuity: EDUIN 3 ha1 Triage Assessment: 21:47 General: Appears uncomfortable, Behavior is calm, cooperative. Pain: Complains of pain ha1 in chest and abdomen Pain currently is 7 out of 10 on a pain scale. Quality of pain is described as crampy. Neuro: Level of Consciousness is awake, alert, obeys commands, Oriented to person, place, time, situation. Cardiovascular: Reports chest pain, Heart tones S1 S2 present Patient's skin is warm and dry. Rhythm is sinus rhythm. Respiratory: Airway is patent Respiratory effort is even, unlabored, Respiratory pattern is regular, symmetrical. GI: Abdomen is round non-distended, obese, Bowel sounds present X 4 quads. Reports lower abdominal pain, nausea, vomiting. : No signs and/or symptoms were reported regarding the genitourinary system. Derm: Skin is pink, warm \T\ dry. Musculoskeletal: Circulation, motion, and sensation intact. Range of motion: intact in all extremities. Historical: - Allergies: 22:09 No Known Allergies; ha1 - PMHx: 22:09 Sleep Apnea; ha1 - Immunization history:: Adult Immunizations up to date. - Social history:: Smoking status: Patient denies any tobacco usage or history of. Screenin:47 [facility] ED Fall Risk Assessment (Adult) History of falling in the last 3 months, ha1 including since admission No falls in past 3 months (0 pts) Confusion or Disorientation No (0 pts) Intoxicated or Sedated No (0 pts) Impaired Gait No (0 pts) Altered Elimination No (0 pt) Score/Fall Risk Level 0 - 2 = Low Risk Oriented to surroundings, Maintained a safe environment, Educated pt \T\ family on fall prevention, incl call for assistance when getting out of bed. Abuse screen: Denies threats or abuse. Denies injuries from another. Nutritional screening: No deficits noted. Tuberculosis screening: No symptoms or risk factors identified. Assessment: 21:47 Reassessment: see triage assessment. ha1 21:47 Pain: Pain does not radiate. Pain began gradually. ha1 22:50 Reassessment: Patient and/or family updated on plan of care and expected duration. Pain ha1 level reassessed. Patient is alert, oriented x 3, equal unlabored respirations, skin warm/dry/pink. 23:50 Reassessment: Patient and/or family updated on plan of care and expected duration. Pain ha1 level reassessed. Patient is alert, oriented x 3, equal unlabored respirations, skin warm/dry/pink. 01/27 00:46 Reassessment: Patient and/or family updated on plan of care and expected duration. Pain ha1 level reassessed. Patient is alert, oriented x 3, equal unlabored respirations, skin warm/dry/pink. pain 2/10 Patient states feeling better. Patient states symptoms have improved. 01:50 Reassessment: Patient and/or family updated on plan of care and expected duration. Pain ha1 level reassessed. Patient is alert, oriented x 3, equal unlabored respirations, skin warm/dry/pink. ultrasound being done. Vital Signs: 01/26 21:47 BP 133 / 71; Pulse 93; Resp 17 S; Temp 98.4; Pulse Ox 99% on R/A; Weight 181.44 kg; ha1 Height 6 ft. 2 in. ; Pain 7/10; 22:30 BP 131 / 70; Pulse 90; Resp 16 S; Pulse Ox 99% on R/A; ha1 23:10 BP 129 / 83; Pulse 86; Resp 18 S; Pulse Ox 98% on R/A; ha1 01/27 00:00 BP 126 / 72; Pulse 88; Resp 19 S; Pulse Ox 98% ; ha1 00:30 BP 130 / 73; Pulse 85; Resp 16 S; Pulse Ox 97% on R/A; ha1 01:27 Weight 192.78 kg (M); ha1 02:30 BP 132 / 55; Pulse 80; Resp 20 S; Pulse Ox 97% on R/A; ha1 01:27 Body Mass Index 54.57 (192.78 kg, 187.96 cm) ha1 01/26 21:47 Pain Scale: Adult [facility] ED Course: 01/26 21:01 Patient arrived in ED. mr 21:47 Patient maintains SpO2 saturation greater than 95% on room air. ha1 21:47 Patient has correct armband on for positive identification. Bed in low position. Call ha1 light in reach. Side rails up X 1. Side rails up X2. 21:47 Arm band placed on right wrist. ha1 21:47 Client placed on continuous cardiac and pulse oximetry monitoring. NIBP monitoring ha1 applied. 21:49 Chon Wagner PA is PHCP. cp 21:49 Randolph Willis MD is Attending Physician. cp 22:00 Felicia Castillo, HELENA is Primary Nurse. ha1 22:03 Inserted saline lock: 20 gauge in right antecubital area, using aseptic technique. rv Blood collected. 22:09 Triage completed. ha1 22:30 Basic Metabolic Panel Sent. ha1 22:30 CBC with Diff Sent. ha1 22:30 LFT's Sent. ha1 22:30 Magnesium Sent. ha1 22:30 Troponin HS Sent. ha1 22:41 Basic Metabolic Panel Sent. ha1 22:41 CBC with Diff Sent. ha1 22:41 LFT's Sent. ha1 22:41 Magnesium Sent. ha1 22:41 Troponin HS Sent. ha1 22:50 XRAY Chest (1 view) In Process Unspecified. EDMS 01/27 02:02 US Abdomen Limited In Process Unspecified. EDMS 03:08 Keshav Antoine MD is Referral Physician. cp 03:26 No provider procedures requiring assistance completed. ha1 03:26 IV discontinued, intact, bleeding controlled, No redness/swelling at site. Pressure ha1 dressing applied. Administered Medications: 01/26 22:40 Drug: Ondansetron IVP 4 mg Route: IVP; Site: right antecubital; ha1 23:10 Follow up: Response: No adverse reaction; Nausea is decreased ha1 22:50 Drug: NS 0.9% IV 1000 ml Route: IV; Rate: 1 bolus; Site: right antecubital; ha1 01/27 02:50 Follow up: Response: No adverse reaction; IV Status: Completed infusion; IV Intake: ha1 1000ml 01/26 22:53 Drug: HYDROmorphone IVP 1 mg Route: IVP; Site: right antecubital; ha1 23:10 Follow up: Response: No adverse reaction; Pain is decreased; RASS: Alert and Calm (0) ha1 01/27 02:37 Drug: GI Cocktail without - (Maalox PO Suspension 30 ml, Lidocaine Mucous ha1 Membrane Liquid 2 % 15 ml) Route: PO; 03:00 Follow up: Response: No adverse reaction ha1 02:49 Drug: Pantoprazole IVP 40 mg Route: IVP; Site: right antecubital; ha1 03:00 Follow up: Response: No adverse reaction ha1 Medication: 03:26 VIS not applicable for this client. ha1 Intake: 02:50 IV: 1000ml; Total: 1000ml. ha1 Outcome: 03:09 Discharge ordered by . andra 03:26 Patient left the ED. ha1 03:26 Discharged to home ambulatory. ha1 03:26 Condition: stable 03:26 Discharge instructions given to patient, Instructed on discharge instructions, follow up and referral plans. medication usage, Demonstrated understanding of instructions, follow-up care, medications, Prescriptions given X 2. Signatures: Dispatcher [employer] [facility] Bria Manzano Chon Wagner PA PA cp Vicente, Ronaldo, RN RN rv Ayala, Heidy, RN RN ha1 Corrections: (The following items were deleted from the chart) 01/26 22:19 21:47 BP 133 / 71; Pulse 93bpm; Resp 97bpm; Spontaneous; Pulse Ox 99% RA; Temp 98.4F; ha1 181.44 kg; Height 6 ft. 2 in.; BMI: 51.3; Pain 7/10, Adult; ha1 01/27 02:49 02:30 GI Cocktail without - (Maalox PO Suspension 30 ml, Lidocaine Mucous ha1 Membrane Liquid 2 % 15 ml) PO ha1 02:51 01/26 23:30 BP 129 / 83; Pulse 86bpm; Resp 18bpm; Spontaneous; Pulse Ox 98% RA; ha1 ha1
--- NOTE | 2023-01-27 03:09 | EDPHYS ---
Physician Documentation [facility] Name: Ziyad Parker Age: 27 yrs Sex: Male : 1995 Arrival Date: 01/26/2023 Time: 20:59 Bed 20 Private MD: ED Physician Randolph Willis HPI: 01/26 22:33 This 27 yrs old Male presents to ER via Ambulatory with complaints of Chest Pain, cp Abdominal Pain, Vomiting. 22:33 The patient presents with abdominal pain in the epigastric area, in the upper abdomen. cp 22:33 Onset: The symptoms/episode began/occurred yesterday. cp 22:33 Associated signs and symptoms: Pertinent positives: nausea and vomiting, chest pain, cp Pertinent negatives: diarrhea, fever, vomiting blood. The symptoms are described as constant. Severity of pain: in the emergency department the pain is unchanged despite home interventions. Historical: - Allergies: 22:09 No Known Allergies; ha1 - PMHx: 22:09 Sleep Apnea; ha1 - Immunization history:: Adult Immunizations up to date. - Social history:: Smoking status: Patient denies any tobacco usage or history of. ROS: 22:35 Constitutional: Negative for body aches, chills, fever, poor PO intake. cp 22:35 Eyes: Negative for injury, pain, redness, and discharge. cp 22:35 ENT: Negative for drainage from ear(s), ear pain, sore throat, difficulty swallowing, difficulty handling secretions. 22:35 Cardiovascular: Positive for chest pain, Negative for edema, palpitations. 22:35 Respiratory: Positive for shortness of breath, Negative for cough, wheezing. 22:35 Abdomen/GI: Positive for abdominal pain, nausea, vomiting, of the epigastric area, right upper quadrant and left upper quadrant, Negative for diarrhea, constipation, anorexia. 22:35 Back: Negative for pain at rest, pain with movement. 22:35 : Negative for urinary symptoms, testicular pain 22:35 Neuro: Negative for altered mental status, dizziness, headache, numbness, syncope, weakness. 22:35 All other systems are negative. Exam: 22:00 ECG was reviewed by the Attending Physician. cp 22:40 Constitutional: The patient appears in no acute distress, alert, awake, cp non-diaphoretic, non-toxic, well developed, well nourished, obese, uncomfortable. 22:40 Head/Face: Normocephalic, atraumatic. cp 22:40 Eyes: Periorbital structures: appear normal, Conjunctiva: normal, no exudate, no cp injection, Sclera: no appreciated abnormality, Lids and lashes: appear normal, bilaterally. 22:40 ENT: External ear(s): are unremarkable, Nose: is normal, Mouth: Lips: moist, Oral cp mucosa: pink and intact, moist, Posterior pharynx: is normal, airway is patent, no erythema, no exudate. 22:40 Chest/axilla: Inspection: normal. 22:40 Cardiovascular: Rate: normal, Rhythm: regular, Edema: is not appreciated, JVD: is not appreciated. 22:40 Respiratory: the patient does not display signs of respiratory distress, Respirations: normal, no use of accessory muscles, no retractions, labored breathing, is not present, Breath sounds: are clear throughout, no decreased breath sounds, no stridor, no wheezing. 22:40 Abdomen/GI: Inspection: abdomen appears normal, Bowel sounds: active, all quadrants, Palpation: soft, in all quadrants, moderate abdominal tenderness, in the epigastric area, right upper quadrant and left upper quadrant, rebound tenderness, is not appreciated. 22:40 Back: CVA tenderness, is absent. 22:40 Skin: cellulitis, is not appreciated, no rash present. 22:40 Neuro: Orientation: to person, place \T\ time. Mentation: is normal, Motor: moves all fours, strength is normal, Sensation: is normal. Vital Signs: 21:47 BP 133 / 71; Pulse 93; Resp 17 S; Temp 98.4; Pulse Ox 99% on R/A; Weight 181.44 kg; ha1 Height 6 ft. 2 in. ; Pain 7/10; 22:30 BP 131 / 70; Pulse 90; Resp 16 S; Pulse Ox 99% on R/A; ha1 23:10 BP 129 / 83; Pulse 86; Resp 18 S; Pulse Ox 98% on R/A; ha1 01/27 00:00 BP 126 / 72; Pulse 88; Resp 19 S; Pulse Ox 98% ; ha1 00:30 BP 130 / 73; Pulse 85; Resp 16 S; Pulse Ox 97% on R/A; ha1 01:27 Weight 192.78 kg (M); 1 02:30 BP 132 / 55; Pulse 80; Resp 20 S; Pulse Ox 97% on R/A; 1 :27 Body Mass Index 54.57 (192.78 kg, 187.96 cm) [facility] 01/26 21:47 Pain Scale: Adult [facility] MDM: 01/26 21:49 Patient medically screened. cp 23:00 Differential diagnosis: acute coronary syndrome, appendicitis, cholecystitis, cp Cholelithiasis, gastritis, gastroesophageal reflux disease, non-specific abd pain, pancreatitis, Peptic Ulcer Disease, Perf. Duodenal Ulcer, Perf. Gastric Ulcer, Ureterolithiasis, urinary tract infection. 01/27 03:08 Data reviewed: vital signs, nurses notes, lab test result(s), EKG, radiologic studies, cp plain films, ultrasound. 03:08 Consideration of Admission/Observation Escalation of care including cp admission/observation considered. I considered the following discharge prescriptions or medication management in the emergency department Medications were administered in the Emergency Department. See MAR. Response to treatment: the patient's symptoms have markedly improved after treatment, Pain and nausea improved. Will discharge to home for continued monitoring. 01/26 22:26 Order name: Basic Metabolic Panel; Complete Time: 00:05 01/27 02:15 Interpretation: Normal except: ANION GAP 4.9. 01/26 22: Order name: CBC with Diff; Complete Time: 00:05 01/27 02:15 Interpretation: Normal except: WBC 12.00; MCH 26.9; MPV 7.3; NEUT A 8.6. 01/26 22:26 Order name: LFT's; Complete Time: 00:05 01/27 02:15 Interpretation: Normal except: GLOB 4.1; A/G 0.9. 01/26 22:26 Order name: Magnesium; Complete Time: 00:05 01/26 22:26 Order name: Troponin HS; Complete Time: 00:05 01/26 22: Order name: Lipase; Complete Time: 00:05 01/26 22:26 Order name: XRAY Chest (1 view) 01/27 01:33 Order name: US Abdomen Limited 01/26 22:26 Order name: EKG; Complete Time: : 01/26 22: Order name: Cardiac monitoring; Complete Time: 22: 01/26 22:26 Order name: EKG - Nurse/Tech; Complete Time: 22:29 cp 01/26 22:26 Order name: IV Saline Lock; Complete Time: :29 cp 01/26 22:26 Order name: Labs collected and sent; Complete Time: :30 cp 01/26 22:26 Order name: O2 Per Protocol; Complete Time: :30 cp 01/26 22:26 Order name: O2 Sat Monitoring; Complete Time: :30 cp 01/27 01:33 Order name: NPO; Complete Time: 01:39 cp EC/26 22:00 Rate is 93 beats/min. Rhythm is regular. ME interval is normal. QRS interval is normal. cp QT interval is normal. T waves are Inverted in leads III, aVR. Interpreted by me. Reviewed by me. Administered Medications: 22:40 Drug: Ondansetron IVP 4 mg Route: IVP; Site: right antecubital; ha1 23:10 Follow up: Response: No adverse reaction; Nausea is decreased ha1 22:50 Drug: NS 0.9% IV 1000 ml Route: IV; Rate: 1 bolus; Site: right antecubital; ha1 01/27 02:50 Follow up: Response: No adverse reaction; IV Status: Completed infusion; IV Intake: ha1 1000ml 01/26 22:53 Drug: HYDROmorphone IVP 1 mg Route: IVP; Site: right antecubital; ha1 23:10 Follow up: Response: No adverse reaction; Pain is decreased; RASS: Alert and Calm (0) ha1 01/27 02:37 Drug: GI Cocktail without - (Maalox PO Suspension 30 ml, Lidocaine Mucous ha1 Membrane Liquid 2 % 15 ml) Route: PO; 03:00 Follow up: Response: No adverse reaction ha1 02:49 Drug: Pantoprazole IVP 40 mg Route: IVP; Site: right antecubital; ha1 03:00 Follow up: Response: No adverse reaction ha1 Disposition Summary: 01/27/23 03:09 Discharge Ordered Location: Home cp Problem: new cp Symptoms: have improved cp Condition: Stable cp Diagnosis - Epigastric pain cp - Chest pain, unspecified cp Followup: cp - With: Keshav Antoine MD - When: 2 - 3 days - Reason: Worsening of condition Discharge Instructions: - Discharge Summary Sheet cp - Abdominal Pain, Adult cp - Nonspecific Chest Pain, Adult cp - Gastroesophageal Reflux Disease, Adult cp Forms: - Medication Reconciliation Form cp - Thank You Letter cp - Antibiotic Education cp - Prescription Opioid Use cp - [email or web address] cp Prescriptions: - Protonix 40 mg Oral Tablet - take 1 tablet by ORAL route once daily; 30 tablet; Refills: 0, Product cp Selection Permitted - Zofran 4 mg Oral Tablet - take 1 tablet by ORAL route every 12 hours As needed; 20 tablet; Refills: 0, cp Product Selection Permitted Signatures: Dispatcher [employer] EDMS Chon Wagner PA PA cp Ayala, Heidy RN RN ha1 Corrections: (The following items were deleted from the chart) 02:02 00:07 Angio Aorta For Dissection+CT.RAD.LORENE ordered. EDMS EDMS
[2023-01-27 03:45] VITALS: TEMP 98.4
[2023-01-27 03:50] VITALS: O2SAT 97
[2023-01-27 03:52] VITALS: BP 132/55
--- NOTE | 2023-01-27 18:49 | RAD REPORT ---
EXAM DESCRIPTION: Chest Single View CLINICAL HISTORY: 7 years Male, CHEST PAIN COMPARISON: Chest radiograph dated 10/25/2022 FINDINGS: No focal lung consolidation. No pleural effusion. No pneumothorax. Cardiomediastinal silhouette is within normal limits. No acute osseous abnormality. IMPRESSION: No acute cardiopulmonary disease. Electronically signed by: Ede Garcia DO 01/26/2023 11:38 PM CDT Due to temporary technical issues with the PACS/Fluency reporting system, reports are being signed by the in house radiologists without review as a courtesy to insure prompt reporting. The interpreting radiologist is fully responsible for the content of the report.
--- NOTE | 2023-01-27 20:37 | EKG ---
Test Date: 2023-01-26 Test Time: 21:54:54 [employer] Manager: KARLEE MEASUREMENT RESULTS: Intervals: Rate: 93 VA: 152 QRSD: 90 QT: 356 QTc: 442 [place]: P: 42 VA: 152 QRS: 12 T: 2 INTERPRETIVE STATEMENTS: Normal sinus rhythm Minimal voltage criteria for LVH, may be normal variant Borderline ECG Compared to ECG 10/25/2022 05:41:54 Left ventricular hypertrophy now present Electronically Signed On 01-27-23 20:32:58 CDT by Erick Sommers
--- NOTE | 2023-01-27 22:03 | RAD REPORT ---
EXAM DESCRIPTION: US Abdomen Limited, Gallbladder CLINICAL HISTORY: The patient is 27 years old and is Male; ABD PAIN TECHNIQUE: Real-time ultrasound of the right upper quadrant with image documentation. COMPARISON: No relevant prior studies available. FINDINGS: LIVER: The liver is increased in echogenicity. There is normal hepatopedal flow. GALLBLADDER: No gallstones are seen. There is no gallbladder wall thickening or pericholecystic f luid. COMMON BILE DUCT: Unremarkable as visualized. No stones. No dilation. IMPRESSION: Hepatic steatosis. Electronically signed by: Ruthy Mtz MD 01/27/2023 2:34 AM CDT Due to temporary technical issues with the PACS/Fluency reporting system, reports are being signed by the in house radiologists without review as a courtesy to insure prompt reporting. The interpreting radiologist is fully responsible for the content of the report.
== END 2023-01-27 03:26 | disposition home or self-care (01) ==
LOC: ER 20:59
DX: R07.9 Chest pain, unspecified (principal)
CPT/HCPCS: 93005; 85025; 80048; 36415; 83735; 80076; 84484; 83690; 71045; 76705; C9113; J1170; J2405; J7030

== ENCOUNTER 2023-03-09 18:14 | Emergency (ER) | payer OTHER ==
--- OUTSIDE RECORDS SUMMARY | 2023-03-09 18:18 | XMS REPORT | Continuity of Care Document ---
:1995 Author Organization [facility] t Address [address] [address] [place] [address] Care Team Providers Name Role Phone Pcp, Patient Does Not Have A Primary Care Physician [id number] Tabitha PETERSON Attending Clinician Unavailable Tabitha Reese Attending Clinician LUIZA RUBI Attending Clinician Unavailable Luiza Patel Attending Clinician Unknown, Attending Attending Clinician Unavailable Daniela Hayes RN Attending Clinician Unavailable GENI RIVERA Attending Clinician Unavailable Geni Rivera MD Attending Clinician Sanjuana Hardy RN Attending Clinician Unavailable Elizabeth Puente PA-C Attending Clinician ELIZABETH PUENTE Attending Clinician Unavailable Doctor Unassigned, [place] Attending Clinician Unavailable SARAH BETH SAMPSON Attending Clinician Unavailable Sarah Beth Sampson MD Attending Clinician JAVI REARDON Attending Clinician Unavailable DANY GARCIA Attending Clinician Unavailable SULTANA OLGUIN Attending Clinician Unavailable Payers Payer Name Policy Type Policy Number Effective Date Expiration Date Bernabe KOTHARI [id number] 2021 00:00:00 Problems Condition Condition Condition Status Onset Resolution Last Treating Co mments Source Name Details Category Date Date Treatment Clinician Date No known No known Disease Unive rs active active ity of problems problems [facility] Allergies, Adverse Reactions, Alerts Allergy Allergy Status Severity Reaction(s) Onset Inactive Treating Comm ents Source Name Type Date Date Clinician NO KNOWN Drug Active Univers ALLERGIE Class ity of S [facility] Social History Social Habit Start Date Stop Date Quantity Comments Source History of tobacco Cigarette Smoker [place] of use [facility] Gender identity Universit y of [facility] Sexual orientation [facility] Exposure to 2022-08-01 2022-08-11 Not sure [facility] SARS-CoV-2 (event) 00:00:00 10:21:00 [facility] Tobacco use and 2022-08-11 2022-08-11 Smokeless Universit y of exposure 00:00:00 00:00:00 tobacco non-user [facility] dical [place] History of Social 2022-08-11 2022-08-11 Univers ity of function 00:00:00 00:00:00 [facility] Sex Assigned At [birth year] Universit y of 00:00:00 00:00:00 [facility] Smoking Status Start Date Stop Date Source Tobacco smoking [facility] xa consumption unknown Medical Bran ch Ex-smoker 2022-08-11 00:00:00 2022-08-11 [place] o f [place] 00:00:00 [facility] Branch Medications Ordered Filled Start Stop Current Ordering Indication Dosage Frequency Signature Comments Components Source Medication Medication Date Date Medication? Clinician (SIG) Name Name ibuprofen Yes [id number] 600mg Take 1 Univers 600 mg 7-12 tablet by ity of tablet 00:00: mouth [place] 00 every 6 Medical (six) Branch hours as needed for Pain (scale 4-6). amoxicillin Yes [id number] 1{tbl} Take 1 Univers -clavulanat 7-12 tablet by ity of e 875-125 00:00: mouth [place] mg per 00 every 12 Medical tablet (twelve) Branch hours. azithromyci Yes [id number] 250mg Take 1 Univers n 7-12 tablet by ity of (ZITHROMAX 00:00: mouth [place] Z-JAY) 250 00 SEE-INSTRU Med ical mg tablet CTIONS. Branch Take 500 mg day 1, then 250 mg days 2 to 5. benzonatate Yes [id number] 200mg Take 1 Univers 200 mg 7-12 capsule by ity of capsule 00:00: mouth 3 [place] 00 (three) Medical times Branch daily as needed for Cough for up to 20 doses. azithromyci 2022-0 Yes [id number] Z pack as Univers n 3-07 directed. ity of (ZITHROMAX 00:00: [place] Z-JAY) 250 00 Medical mg tablet Branch azithromyci 2022-0 Yes [id number] Z pack as Univers n 3-07 directed. ity of (ZITHROMAX 00:00: [place] Z-JAY) 250 00 Medical mg tablet Branch benzonatate 2022-0 3- No [id number] 200mg Take 1 Univers 200 mg 10-07 03-18 capsule by ity of capsule 00:00: 04:59 mouth 3 [place] 00 :00 (three) Medical times Branch daily as needed for Cough for up to 10 days. ondansetron 2022-0 2022- No [id number] 4mg Take 1 Univers 4 mg 10-07 03-13 tablet by ity of disintegrat 00:00: 04:59 [place] tablet [place] :00 every 8 Medica l (eight) Branch hours as needed for Nausea and Vomiting (N/V) for up to 5 days. benzonatate 3-0 Yes [id number] 200mg Take 2 Univers 100 mg 1-09 capsules ity of capsule 00:00: by mouth [place] 00 every 8 Medical (eight) Branch hours as needed for Cough. bromphenira 3-0 Yes [id number] 10mL Take 10 mL Univers mine-pseudo 1-09 by mouth 4 it y of ephedrine-D 00:00: (four[place] (BROMFED 00 times Medical DM) 2-30-10 daily as Bran ch mg/5 mL needed for syrup Congestion /Allergies . benzonatate 3-0 Yes [id number] 200mg Take 2 Univers 100 mg 1-09 capsules ity of capsule 00:00: by mouth [place] 00 every 8 Medical (eight) Branch hours as needed for Cough. bromphenira 3-0 Yes [id number] 10mL Take 10 mL Univers mine-pseudo 1-09 by mouth 4 it y of ephedrine-D 00:00: (four[place] (BROMFED 00 times Medical DM) 2-30-10 daily as Bran ch mg/5 mL needed for syrup Congestion /Allergies . benzonatate 2022-0 Yes [id number] 200mg Take 2 Univers 100 mg 1-09 capsules ity of capsule 00:00: by mouth [place] 00 every 8 Medical (eight) Branch hours as needed for Cough. bromphenira 2022-0 Yes [id number] 10mL Take 10 mL Univers mine-pseudo 1-09 by mouth 4 it y of ephedrine-D 00:00: (four[place] (BROMFED 00 times Medical DM) 2-30-10 daily as Bran ch mg/5 mL needed for syrup Congestion /Allergies . benzonatate 2022-0 Yes [id number] 200mg Take 2 Univers 100 mg 1-09 capsules ity of capsule 00:00: by mouth [place] 00 every 8 Medical (eight) Branch hours as needed for Cough. bromphenira 2022-0 Yes [id number] 10mL Take 10 mL Univers mine-pseudo -09 by mouth 4 it y of ephedrine-D 00:00: (four[place] (BROMFED 00 times Medical DM) 2-30-10 daily as Bran ch mg/5 mL needed for syrup Congestion /Allergies . amoxicillin 2022-2022- No [id number] 1{tbl} Take 1 Univers -clavulanat 08-1117 tablet by it y of e 00:00: 05:59 mouth in [place] (AUGMENTIN) 00 :00 the Medical 875-125 mg morning Branch per tablet and 1 tablet in the evening. Do all this for 7 days. amoxicillin 2022-2022- No [id number] 1{tbl} Take 1 Univers -clavulanat 08-1117 tablet by it y of e 00:00: 05:59 mouth in [place] (AUGMENTIN) 00 :00 the Medical 875-125 mg morning Branch per tablet and 1 tablet in the evening. Do all this for 7 days. busPIRone 2021-08 Yes 10mg Take 10 mg Un sukhdeep 10 mg 0-15 by mouth ity of tablet 17:59: in the [place] [address] morning Medical and 10 mg Branch in the evening. busPIRone 2021-08 Yes 10mg Take 10 mg Un sukhdeep 10 mg 0-15 by mouth ity of tablet 17:59: in the [place] [address] morning Medical and 10 mg Branch in the evening. busPIRone 2021-08 Yes 10mg Take 10 mg Un sukhdeep 10 mg 0-15 by mouth ity of tablet 17:59: in the [place] [address] morning Medical and 10 mg Branch in the evening. busPIRone 2021-08 Yes 10mg Take 10 mg Un sukhdeep 10 mg 0-15 by mouth ity of tablet 17:59: in the [place] [address] morning Medical and 10 mg Branch in the evening. busPIRone 2021-08 Yes 10mg Take 10 mg Un sukhdeep 10 mg 0-15 by mouth ity of tablet 17:59: in the [place] [address] morning Medical and 10 mg Branch in the evening. busPIRone 2021-08 Yes 10mg Take 10 mg Un sukhdeep 10 mg 0-15 by mouth ity of tablet 17:59: in the [place] [address] morning Medical and 10 mg Branch in the evening. busPIRone 2021-08 Yes 10mg Take 10 mg Un sukhdeep 10 mg 0-15 by mouth ity of tablet 17:59: in the [place] [address] morning Medical and 10 mg Branch in the evening. benzonatate 2021-08 Yes [id number] 200mg Take 2 Univers 100 mg 0-15 capsules ity of capsule 00:00: by mouth [place] 00 every 8 Medical (eight) Branch hours as needed for Cough. guaiFENesin 2021-08 Yes [id number] 400mg Take 1 Univers 400 mg 0-15 tablet by ity of tablet 00:00: mouth [place] 00 every 4 Medical (four) Branch hours as needed for Cough. albuterol 2021-08 Yes [id number] 2{puff} Inhale 2 Univers 90 0-15 Puffs ity of mcg/actuati 00:00: every 6 [place] on inhaler 00 (six) Medical hours as Branch needed for Chest tightness. benzonatate 2021-08 Yes [id number] 200mg Take 2 Univers 100 mg 0-15 capsules ity of capsule 00:00: by mouth [place] 00 every 8 Medical (eight) Branch hours as needed for Cough. guaiFENesin 2021-08 Yes [id number] 400mg Take 1 Univers 400 mg 0-15 tablet by ity of tablet 00:00: mouth [place] 00 every 4 Medical (four) Branch hours as needed for Cough. albuterol 2021-08 Yes [id number] 2{puff} Inhale 2 Univers 90 0-15 Puffs ity of mcg/actuati 00:00: every 6 [place] as on inhaler 00 (six) Medical hours as Branch needed for Chest tightness. benzonatate 2021-08 Yes [id number] 200mg Take 2 Univers 100 mg 0-15 capsules ity of capsule 00:00: by mouth [place] 00 every 8 Medical (eight) Branch hours as needed for Cough. guaiFENesin 2021-08 Yes [id number] 400mg Take 1 Univers 400 mg 0-15 tablet by ity of tablet 00:00: mouth [place] 00 every 4 Medical (four) Branch hours as needed for Cough. albuterol 2021-08 Yes [id number] 2{puff} Inhale 2 Univers 90 0-15 Puffs ity of mcg/actuati 00:00: every 6 [place] as on inhaler 00 (six) Medical hours as Branch needed for Chest tightness. guaiFENesin 2021-08 Yes [id number] 400mg Take 1 Univers 400 mg 0-15 tablet by ity of tablet 00:00: mouth [place] 00 every 4 Medical (four) Branch hours as needed for Cough. albuterol 2021-08 Yes [id number] 2{puff} Inhale 2 Univers 90 0-15 Puffs ity of mcg/actuati 00:00: every 6 [place] on inhaler 00 (six) Medical hours as Branch needed for Chest tightness. guaiFENesin 2021-08 Yes [id number] 400mg Take 1 Univers 400 mg 0-15 tablet by ity of tablet 00:00: mouth [place] 00 every 4 Medical (four) Branch hours as needed for Cough. albuterol 2021-08 Yes [id number] 2{puff} Inhale 2 Univers 90 0-15 Puffs ity of mcg/actuati 00:00: every 6 [place] on inhaler 00 (six) Medical hours as Branch needed for Chest tightness. guaiFENesin 2021-08 Yes [id number] 400mg Take 1 Univers 400 mg 0-15 tablet by ity of tablet 00:00: mouth [place] 00 every 4 Medical (four) Branch hours as needed for Cough. albuterol 2021-08 Yes [id number] 2{puff} Inhale 2 Univers 90 0-15 Puffs ity of mcg/actuati 00:00: every 6 [place] on inhaler 00 (six) Medical hours as Branch needed for Chest tightness. guaiFENesin 2021-08 Yes [id number] 400mg Take 1 Univers 400 mg 0-15 tablet by ity of tablet 00:00: mouth [place] 00 every 4 Medical (four) Branch hours as needed for Cough. albuterol 2021-08 Yes [id number] 2{puff} Inhale 2 Univers 90 0-15 Puffs ity of mcg/actuati 00:00: every 6 [place] as on inhaler 00 (six) Medical hours as Branch needed for Chest tightness. benzonatate 2021-08- No [id number] 200mg Take 2 Univers 100 mg 0-15 -09 capsules ity of capsule 00:00: 00:00 by mouth [place] 00 :00 every 8 Medical (eight) Branch hours as needed for Cough. fluticasone Yes [id number] 2{spray Use 2 Univers propionate 3-13 } Sprays in ity of 50 00:00: each [place] mcg/actuati 00 nostril Medic al on nasal daily. Branch spray fluticasone Yes [id number] 2{spray Use 2 Univers propionate 3-13 } Sprays in ity of 50 00:00: each [place] mcg/actuati 00 nostril Medic al on nasal daily. Branch spray fluticasone Yes [id number] 2{spray Use 2 Univers propionate 3-13 } Sprays in ity of 50 00:00: each [place] mcg/actuati 00 nostril Medic al on nasal daily. Branch spray fluticasone Yes [id number] 2{spray Use 2 Univers propionate 3-13 } Sprays in ity of 50 00:00: each [place] mcg/actuati 00 nostril Medic al on nasal daily. Branch spray fluticasone Yes [id number] 2{spray Use 2 Univers propionate 3-13 } Sprays in ity of 50 00:00: each [place] mcg/actuati 00 nostril Medic al on nasal daily. Branch spray fluticasone Yes [id number] 2{spray Use 2 Univers propionate 3-13 } Sprays in ity of 50 00:00: each [place] mcg/actuati 00 nostril Medic al on nasal daily. Branch spray fluticasone Yes [id number] 2{spray Use 2 Univers propionate 3-13 } Sprays in ity of 50 00:00: each [place] mcg/actuati 00 nostril Medic al on nasal daily. Branch spray fluticasone 0 Yes [id number] 2{spray Use 2 Univers propionate 3-13 } Sprays in ity of 50 00:00: each [place] mcg/actuati 00 nostril Medic al on nasal daily. Branch spray bromphenira 0 Yes [id number] 10mL Take 10 mL Univers mine-pseudo 3-13 by mouth 3 it y of ephedrine-D 00:00: (three) [place] M (BROMFED 00 times Medical DM) 2-30-10 daily as Bran ch mg/5 mL needed for syrup Cough. fluticasone Yes [id number] 2{spray Use 2 Univers propionate 3-13 } Sprays in ity of 50 00:00: each [place] mcg/actuati 00 nostril Medic al on nasal daily. Branch spray bromphenira Yes [id number] 10mL Take 10 mL Univers mine-pseudo 3-13 by mouth 3 it y of ephedrine-D 00:00: (three) [place] (BROMFED 00 times Medical DM) 2-30-10 daily as Bran ch mg/5 mL needed for syrup Cough. fluticasone Yes [id number] 2{spray Use 2 Univers propionate 3-13 } Sprays in ity of 50 00:00: each [place] mcg/actuati 00 nostril Medic al on nasal daily. Branch spray bromphenira Yes [id number] 10mL Take 10 mL Univers mine-pseudo 3-13 by mouth 3 it y of ephedrine-D 00:00: (three) [place] (BROMFED 00 times Medical DM) 2-30-10 daily as Bran ch mg/5 mL needed for syrup Cough. bromphenira 2021- No [id number] 10mL Take 10 mL Univers mine-pseudo 3-13 10-15 by mouth 3 i ty of ephedrine-D 00:00: 00:00 (three) [place] (BROMFED 00 :00 times Medical DM) 2-30-10 daily as Bran ch mg/5 mL needed for syrup Cough. bromphenira 2020-08 Yes [id number] 5mL Take 5 mL Univers mine-pseudo 1-21 by mouth 4 it y of ephedrine-D 00:00: (four[place] (BROMFED 00 times Medical DM) 2-30-10 daily as Bran ch mg/5 mL needed for syrup Cold symptoms. bromphenira 2020-08 Yes [id number] 5mL Take 5 mL Univers mine-pseudo 1-21 by mouth 4 it y of ephedrine-D 00:00: (four[place] (BROMFED 00 times Medical DM) 2-30-10 daily as Bran ch mg/5 mL needed for syrup Cold symptoms. bromphenira 2020-08 Yes [id number] 5mL Take 5 mL Univers mine-pseudo 1-21 by mouth 4 it y of ephedrine-D 00:00: (four[place] (BROMFED 00 times Medical DM) 2-30-10 daily as Bran ch mg/5 mL needed for syrup Cold symptoms. bromphenira 2020-08 Yes [id number] 5mL Take 5 mL Univers mine-pseudo 1-21 by mouth 4 it y of ephedrine-D 00:00: (four) [place] (BROMFED 00 times Medical DM) 2-30-10 daily as Bran ch mg/5 mL needed for syrup Cold symptoms. bromphenira 2020-08 Yes [id number] 5mL Take 5 mL Univers mine-pseudo 1-21 by mouth 4 it y of ephedrine-D 00:00: (four[place] (BROMFED 00 times Medical DM) 2-30-10 daily as Bran ch mg/5 mL needed for syrup Cold symptoms. bromphenira 2020-08 Yes [id number] 5mL Take 5 mL Univers mine-pseudo 1-21 by mouth 4 it y of ephedrine-D 00:00: (four) [place] (BROMFED 00 times Medical DM) 2-30-10 daily as Bran ch mg/5 mL needed for syrup Cold symptoms. bromphenira 2020-08 Yes [id number] 5mL Take 5 mL Univers mine-pseudo 1-21 by mouth 4 it y of ephedrine-D 00:00: (four) [place] (BROMFED 00 times Medical DM) 2-30-10 daily as Bran ch mg/5 mL needed for syrup Cold symptoms. benzonatate 2020-08 Yes [id number] 100mg Take 1 Univers 100 mg 1-21 capsule by ity of capsule 00:00: mouth 3 (three) Medical times Branch daily as needed for Cough. bromphenira 2020-08 Yes [id number] 5mL Take 5 mL Univers mine-pseudo 1-21 by mouth 4 it y of ephedrine-D 00:00: (four) [place] (BROMFED times Medical DM) 2-30-10 daily as Bran ch mg/5 mL needed for syrup Cold symptoms. benzonatate 2020-08 Yes [id number] 100mg Take 1 Univers 100 mg 1-21 capsule by ity of capsule 00:00: mouth 3 (three) Medical times Branch daily as needed for Cough. bromphenira 2020-08 Yes [id number] 5mL Take 5 mL Univers mine-pseudo 1-21 by mouth 4 it y of ephedrine-D 00:00: (four) [place] (BROMFED times Medical DM) 2-30-10 daily as Bran ch mg/5 mL needed for syrup Cold symptoms. bromphenira 2020-08 Yes [id number] 5mL Take 5 mL Univers mine-pseudo 1-21 by mouth 4 it y of ephedrine-D 00:00: (four) [place] (BROMFED times Medical DM) 2-30-10 daily as Bran ch mg/5 mL needed for syrup Cold symptoms. bromphenira 2020-08 Yes [id number] 5mL Take 5 mL Univers mine-pseudo 1-21 by mouth 4 it y of ephedrine-D 00:00: (four) [place] (BROMFED times Medical DM) 2-30-10 daily as Bran ch mg/5 mL needed for syrup Cold symptoms. bromphenira 2020-08 Yes [id number] 5mL Take 5 mL Univers mine-pseudo 1-21 by mouth 4 it y of ephedrine-D 00:00: (four) [place] (BROMFED times Medical DM) 2-30-10 daily as Bran ch mg/5 mL needed for syrup Cold symptoms. benzonatate 2020-08 No [id number] 100mg Take 1 Univers 100 mg 08-23-13 capsule by ity of capsule 00:00: 00:00 [...] 06/21/21 at 0600, STAT benzonatate 2020-08 Yes [id number] 100mg Take 1 Univers 100 mg -19 capsule by ity of capsule 00:00: mouth 3 [place] 00 (three) Medical times Branch daily as needed for Cough. benzonatate 2020-08 Yes [id number] 100mg Take 1 Univers 100 mg -19 capsule by ity of capsule 00:00: mouth 3 [place] 00 (three) Medical times Branch daily as needed for Cough. benzonatate 2020-08 Yes [id number] 100mg Take 1 Univers 100 mg -19 capsule by ity of capsule 00:00: mouth 3 [place] 00 (three) Medical times Branch daily as needed for Cough. benzonatate 2020-08- No [id number] 100mg Take 1 Univers 100 mg 08-21 capsule by ity of capsule 00:00: 00:00 mouth 3 [place] 00 :00 (three) Medical times Branch daily as needed for Cough. Vital Signs Vital Name Observation Time Observation Value Comments Source Systolic blood 2023-02-11 13:28:52 160 mm[Hg] Univer [facility] Diastolic blood 2023-02-11 13:28:52 83 [facility]Hg[facility] 2023-02-11 13:28:52 89 /min [facility] Body temperature 2023-02-11 13:28:52 37.11 Yan[place] [facility] Respiratory rate 2023-02-11 13:28:52 18 /min Univ [facility] [place] [facility] Body weight 2023-02-11 13:15:00 190.511 kg Universi [facility] [place] [facility] BMI 2023-02-11 13:15:00 53.92 kg/m2 Universi ty [facility] [place] [facility] Oxygen saturation in 2023-02-11 13:15:00 99 /min University of Arterial blood by [place] [employer] fay Pulse oximetry Branch Systolic blood 2022-10-07 22:53:00 138 mm[Hg] Univer sity of pressure [place] [facility] Diastolic blood 2022-10-07 22:53:00 88 mm[Hg] Unive rsity of pressure [place] [facility] Heart rate 2022-10-07 22:53:00 108 /min Universi [facility] [place] [facility] Body temperature 2022-10-07 22:53:00 37.33 [place] Univ ers[facility] [place] [facility] Respiratory rate 2022-10-07 22:53:00 16 /min Univ [facility] [place] [facility] Body height 2022-10-07 22:53:00 188 cm [facility] [place] [facility] Body weight 2022-10-07 22:53:00 190.828 kg Univers[facility] [place] [facility] BMI 2022-10-07 22:53:00 54.01 kg/m2 [facility] [place] [facility] Oxygen saturation in 2022-10-07 22:53:00 96 /min University of Arterial blood by [facility] Pulse oximetry Branch Systolic blood 2022-08-11 16:54:00 131 mm[Hg] Univer sity of pressure [place] [facility] Diastolic blood 2022-08-11 16:54:00 77 mm[Hg] Unive rsity of pressure [place] [facility] Heart rate 2022-08-11 16:54:00 91 /min Universi ty [facility] [place] [facility] Body temperature 2022-08-11 16:54:00 37 [place] Univ ers[facility] [place] [facility] Respiratory rate 2022-08-11 16:54:00 16 /min Univ [facility] [place] [facility] Body height 2022-08-11 16:54:00 188 cm [facility] [place] [facility] Body weight 2022-08-11 16:54:00 183.072 kg [facility] [place] [facility] BMI 2022-08-11 16:54:00 51.82 kg/m2 [facility] [place] [facility] Oxygen saturation in 2022-08-11 16:54:00 97 /min University of Arterial blood by [place] [facility] fay Pulse oximetry Branch Systolic blood 2022-05-17 23:25:00 162 mm[Hg] Univer sity of pressure [place] [facility] Diastolic blood 2022-05-17 23:25:00 74 mm[Hg] Unive rsity of pressure [place] [facility] Heart rate 2022-05-17 23:01:00 96 /min [facility] [place] [facility] Body temperature 2022-05-17 23:01:00 36.5 [place] Univ [facility] [place] [facility] Body height 2022-05-17 23:01:00 188 cm [facility] [place] [facility] Body weight 2022-05-17 23:01:00 184.342 kg [facility] [place] [facility] BMI 2022-05-17 23:01:00 52.18 kg/m2 [facility] [place] [facility] Oxygen saturation in 2022-05-17 23:01:00 95 /min University of Arterial blood by [facility] fay Pulse oximetry Branch Systolic blood 2021-10-13 15:39:00 137 mm[Hg] Univer sity of pressure [place] [facility] Diastolic blood 2021-10-13 15:39:00 82 mm[Hg] Unive rsity of pressure [place] [facility] Heart rate 2021-10-13 15:36:00 83 /min [facility]i [facility] [place] [facility] Body temperature 2021-10-13 15:36:00 36.67 [place] Univ [facility] [place] [facility] Respiratory rate 2021-10-13 15:36:00 18 /min Univ [facility] [place] [facility] Body height 2021-10-13 15:36:00 188 cm [facility] [place] [facility] Body weight 2021-10-13 15:36:00 189.059 kg [facility] [place] [facility] BMI 2021-10-13 15:36:00 53.51 kg/m2 [facility] [place] [facility] Oxygen saturation in 2021-10-13 15:36:00 97 /min University of Arterial blood by [place] Medi fay Pulse oximetry Branch Systolic blood 2021-06-23 14:47:00 148 mm[Hg] Univer sity of pressure [place] [facility] Diastolic blood 2021-06-23 14:47:00 100 mm[Hg] Unive rsity of pressure [place] [facility] Heart rate 2021-06-23 14:47:00 89 /min [facility] [place] [facility] Body temperature 2021-06-23 14:47:00 36.89 [place] Univ [facility] [place] [facility] Respiratory rate 2021-06-23 14:47:00 18 /min Univ [facility] [place] [facility] Oxygen saturation in 2021-06-23 14:47:00 100 /min University of Arterial blood by [place] [employer] fay Pulse oximetry Branch Body height 2021-06-23 13:07:00 188 cm [facility] [place] [facility] Body weight 2021-06-23 13:07:00 181.439 kg [facility] [place] [facility] BMI 2021-06-23 13:07:00 51.36 kg/m2 [facility] [place] [facility] Systolic blood 2021-06-21 12:33:00 125 mm[Hg] Univer sity of pressure [place] [facility] Diastolic blood 2021-06-21 12:33:00 71 mm[Hg] Unive rsity of pressure [place] [facility] Heart rate 2021-06-21 12:33:00 96 /min [facility] [place] [facility] Body temperature 2021-06-21 12:33:00 37.06 [place] Univ [facility] [place] [facility] Respiratory rate 2021-06-21 12:33:00 18 /min Univ ers[facility] [place] [facility] Oxygen saturation in 2021-06-21 12:33:00 98 /min University of Arterial blood by [place] [employer] fay Pulse oximetry Branch Body height 2021-06-21 11:33:00 188 cm [facility] [place] [facility] Body weight 2021-06-21 11:33:00 181.439 kg [facility] [place] [facility] BMI 2021-06-21 11:33:00 51.36 kg/m2 [facility] [place] [facility] Procedures Procedure Date / Time Performed Performing Clinician [facility] e ASSIGNMENT OF BENEFITS 2023-02-11 13:45:48 Doctor Unassigned, No [facility] Name Medical Branch CONSENT/REFUSAL FOR 2023-02-11 13:14:01 Doctor Unassigned, No [facility] DIAGNOSIS AND Name Medical Branch TREATMENT POCT MOLECULAR STREP 2022-10-07 22:54:00 Unknown, Attending [facility] POCT MOLECULAR STREP 2022-08-11 17:01:00 Unknown, Attending [facility] POCT MOLECULAR FLU 2022-05-17 23:15:00 Unknown, Attending [facility] POCT MOLECULAR STREP 2022-05-17 23:14:00 Unknown, Attending [facility] POCT MOLECULAR FLU 2021-10-13 15:48:00 Unknown, Attending [facility] POCT MOLECULAR STREP 2021-10-13 15:45:00 Unknown, Attending [facility] ASSIGNMENT OF BENEFITS 2021-10-13 15:31:01 Doctor Unassigned, No [facility] RAPID STREP SCREEN FOR 2021-06-23 13:44:00 Sarah Beth Sampson [facility] Encounters Start End Encounter Admission Attending Care Care Encounter Source Date/Time Date/Time Type Type Clinicians Facility Department ID 2023-02-11 2023-02-11 Emergency X Tabitha PETERSON [facility] ERT [id number] Univers 08:16:00 08:56:00 ity of [facility] 2023-02-11 2023-02-11 Emergency Tabitha Peterson [facility] 1.2.840.114 [id number] Univers 08:16:00 08:56:00 Monica HAYWOOD 350.1.13.10 i ty [facility] 4.2.7.2.686 [facility] [phone] [place] [id number] [place] 2022-10-07 2022-10-07 Outpatient R ELICIA [facility] [id number] Univers 16:40:00 17:15:10 REENU ity of [facility] 2022-10-07 2022-10-07 Urgent Luiza Rubi [facility] 1.2.840.11 [id number] Univers 16:40:00 17:15:10 Care Unknown, Attending [facility] 350.1.13.10 ity [facility] 4.2.7.2.686 Franco as TL?BLEA [phone] Oh malachi [address] MEDICAL OFFICE BUILDING 2022-08-12 2022-08-12 Letter KYLAH Hayes [id number] Univers 00:00:00 00:00:00 (Out) Daniela EVANS 350.1.13.10 it y of HOSPITAL 4.2.7.2.686 Franco as [phone] [address] 2022-08-11 2022-08-11 Outpatient [facility] [id number] Univers 10:20:00 11:06:[address] [facility] 2022-08-11 2022-08-11 Urgent Miguel [facility] 1.2.840.114 [id number] Univers 10:20:00 11:06:43 Care Unknown, Attending HEALTH 350.1.13.10 ity of [facility] 4.2.7.2.686 Franco as TL?BLEA [id number] [address] 2022-06-10 2022-06-10 [facility] 1.2.840.114 [id number] Univers 00:00:00 00:00:00 [facility] 350.1.13.10 it y of [facility] 4.2.7.2.686 Franco as TL?BLEA [id number] [address] 2022-05-18 2022-05-18 KYLAH Alarcon 1.2.840.114 [id number] Univers 00:00:00 00:00:00 (Out) Sanjuana EVANS 350.1.13.10 it y of HOSPITAL 4.2.7.2.686 Franco as [id number] [address] 2022-05-17 2022-05-17 Outpatient [facility] [id number] Univers 18:00:00 18:36:[address] [facility] 2022-05-17 2022-05-17 Urgent Miguel [facility] 1.2.840.114 [id number] Univers 18:00:00 18:36:21 Care Unknown, Attending HEALTH 350.1.13.10 ity of [place] 4.2.7.2.686 Franco as TL?BLEA [id number] [address] 2021-11-09 2021-11-09 Refill TERELL Puente [id number] Univers 00:00:00 00:00:00 Elizabeth P[facility]RIC 350.1.13.10 [place] [id number] [address] CARE CLINIC 2021-10-14 2021-10-14 Letter KYLAH Hayes 1.2.840.114 [id number] Univers 00:00:00 00:00:00 (Out) Daniela Abigail EVANS 350.1.13.10 it y of HOSPITAL 4.2.7.2.686 Franco as [phone] [facility] 019 Branch 2021-10-13 2021-10-13 Outpatient R CINDI [facility] [id number] Univers 10:45:00 11:10:[address] [facility] 2021-10-13 2021-10-13 Urgent Elizabeth Puente 1.2.840.11 [id number] Univers 10:45:00 11:10:45 Care Unknown, Attending PEDIATRIC 350.1.13. 10 [place] [id number] [address] CARE CLINIC 2021-10-13 2021-10-13 Orders Doctor MONTERO 1.2.840.114 [id number] Univers 00:00:00 00:00:00 Only Unassigned, NATHAN 350.1.13.10 ity of [place] [facility] 4.2.7.2.686 Franco as [phone] [facility] 009 Branch 2021-06-23 2021-06-23 Emergency X SAMPSON, [facility] ERT [id number] Univers 07:02:00 08:49:[address] [facility] 2021-06-23 2021-06-23 Emergency [facility] [id number] Univers 07:02:00 08:49:00 [facility] 350.1.13.10 it y [place] [phone] [facility] 014 Branch (CLC) 2021-06-21 2021-06-21 Emergency X WILMER [facility] ERT [id number] Univers 05:23:00 06:34:[address] [facility] 2021-06-21 2021-06-21 Emergency Wilmer [facility] [id number] Univers 05:23:00 06:34:00 Javi [facility] 350.1.13.10 it y of [place] 4.2.7.2.686 Steve madrid [place] [phone] [place] [address] Branch ([facility]) 2020-12-12 2020-12-12 Emergency E WALTERDUNGDANY [facility] [id number] 11:12:00 12:11:[address] [facility] 2020-12-09 2020-12-09 Emergency E COTYCONCEPCIÓNRIMMA SE [facility] [id number] 07:13:00 09:52:00 , [facility] Results Test Description Test Time Test Comments Results Result Comments Source POCT MOLECULAR STREP 2022-10-07 23:01:59 Test Item Value Reference Range Interpretation Comme nts POCT Molecular Strep (test code = 94528-5) Negative Negative Lab Interpretation (test code = 46232-9) Normal [facility] MOLECULAR [id number] 17:09:16 Test Item Value Reference Range Interpretation Comments POCT Molecular Strep (test code = Negative Negative 85242-0) Lab Interpretation (test code = Normal 21816-7) [facility] MOLECULAR [id number] 23:27:42 Test Item Value Reference Range Interpretation Comments POCT Molecular FluA (test code = Negative Negative 97294-9) POCT Molecular FluB (test code = Negative Negative 41733-0) Lab Interpretation (test code = Normal 62570-2) [facility] MOLECULAR [id number] 23:22:56 Test Item Value Reference Range Interpretation Comments POCT Molecular Strep (test code = Negative Negative 59037-2) Lab Interpretation (test code = Normal 88946-9) [facility] MOLECULAR [id number] 15:59:44 Test Item Value Reference Range Interpretation Comments POCT Molecular FluA (test code = Negative Negative 43183-4) POCT Molecular FluB (test code = Negative Negative 12313-2) Lab Interpretation (test code = Normal 14297-4) [facility] [id number] 15:53:01 Test Item Value Reference Range Interpretation Comments POCT Molecular Strep (test code = Negative Negative 52482-9) Lab Interpretation (test code = Normal 52789-8) [facility]
[2023-03-09 19:17] LABS: Absolute Lymphocytes (CBC) 1.9 K/uL (0.7-4.9); Hematocrit 42.8 % (39.6-49.0); Lymphocytes % 20.4 % (15.3-44.8); MCV 82.9 fL (80-100); MPV 7.1 fL (7.6-11.3); Platelets 332 thou/uL (152-406); RBC Red Blood Cell Count 5.16 M/uL (4.33-5.43)
[2023-03-09 19:23] LABS: Albumin 4.1 g/dL (3.4-5.0); Bilirubin Total 0.5 mg/dL (0.2-1.0); Potassium 3.9 mEq/L (3.5-5.1); Protein, Total 8.3 g/dL (6.4-8.2)
--- NOTE | 2023-03-09 19:46 | RAD REPORT ---
EXAM DESCRIPTION: US - Abdomen Exam Limited - 03/09/2023 7:22 pm CLINICAL HISTORY: Abdominal pain. COMPARISON: January 2023 FINDINGS: The gallbladder wall is not thickened. A gallstone is not seen. The biliary tree is normal caliber. IMPRESSION: Unremarkable gallbladder ultrasound.
[2023-03-09 20:45] LABS: Specific Gravity > 1.030 (1.005-1.030); Urine Bacteria <20 /HPF (<20); Urine Bilirubin NEGATIVE (Negative); Urine Blood Trace (Negative); Urine Clarity Clear (Clear); Urine Color Light-Yellow (Yellow); Urine Glucose NEGATIVE (Negative); Urine Protein NEGATIVE (Negative); Urine RBC <5 /HPF (None Seen); Urine Urobilinogen Normal (Normal)
--- NOTE | 2023-03-09 21:16 | RAD REPORT ---
EXAM DESCRIPTION: CT - Abdomen Pelvis W Contrast - 03/09/2023 9:00 pm CLINICAL HISTORY: Abdominal pain COMPARISON: none. TECHNIQUE: Computed axial tomography of the abdomen pelvis was obtained. 100 cc Isovue-300 was admin istered intravenously. Oral contrast was not requested which limits evaluation of bowel and appendix All CT scans are performed using dose optimization technique as appropriate and may include automated exposure control or mA/KV adjustment according to patient size. FINDINGS: The liver, spleen, pancreas, adrenal and kidneys appear unremarkable. There is no evidence of diverticulitis. Normal appendix IMPRESSION: No acute abnormality is displayed.
--- NOTE | 2023-03-09 21:26 | EDPHYS ---
Physician Documentation [facility] Name: Ziyad Parker Age: 27 yrs Sex: Male : 1995 Arrival Date: 03/09/2023 Time: 18:14 Bed 13 Private MD: ED Physician Pantera Schwarz HPI: 03/09 18:48 This 27 yrs old Male presents to ER via Ambulatory with complaints of Abdominal Pain, ms3 Nausea. 18:48 27-year male with past medical history of obstructive sleep apnea presents for right ms3 upper quadrant abdominal pain that began 1 hour prior to arrival. Patient rates his pain a 5/10 and describes it as sharp and stabbing. Patient denies alleviating or inciting factors. Patient denies fevers, chills, diarrhea. Historical: - Allergies: 18:47 No Known Allergies; cm10 - Home Meds: 18:47 None [Active]; cm10 - PMHx: 18:47 Sleep Apnea; cm10 - PSHx: 18:47 None; cm10 - Immunization history:: Adult Immunizations up to date. - Social history:: Smoking status: Patient denies any tobacco usage or history of. - Family history:: not pertinent. ROS: 18:48 Constitutional: Negative for fever, and chills. Neck: Negative for injury, pain, and ms3 swelling, Cardiovascular: Negative for chest pain, and palpitations. Respiratory: Negative for shortness of breath, cough, wheezing, and pleuritic chest pain. 18:48 MS/Extremity: Negative for injury and deformity, Skin: Negative for injury, rash, and discoloration. 18:48 Abdomen/GI: Positive for abdominal pain, nausea and vomiting, Negative for diarrhea. 18:48 All other systems are negative. Exam: 18:48 Constitutional: This is a well developed, well nourished patient who is awake, alert, ms3 and in no acute distress. Head/Face: Normocephalic, atraumatic. Chest/axilla: Normal chest wall appearance and motion. Nontender with no deformity. Cardiovascular: Regular rate and rhythm with a normal S1 and S2. No gallops, murmurs, or rubs. Normal PMI, no JVD. No pulse deficits. Respiratory: Lungs have equal breath sounds bilaterally, clear to auscultation and percussion. No rales, rhonchi or wheezes noted. No increased work of breathing, no retractions or nasal flaring. 18:48 Skin: Warm, dry with normal turgor. Normal color with no rashes, no lesions, and no evidence of cellulitis. MS/ Extremity: Pulses equal, no cyanosis. Neurovascular intact. Full, normal range of motion. 18:48 Abdomen/GI: Inspection: abdomen appears normal, Bowel sounds: normal, Palpation: mild abdominal tenderness, in the right upper quadrant. Vital Signs: 18:46 BP 137 / 90; Pulse 95; Resp 16; Temp 98.1; Pulse Ox 95% ; Weight 181.44 kg; Height 6 cm10 ft. 2 in. ; Pain 5/10; 21:25 Pulse 84; Resp 16; Pulse Ox 100% ; vc1 21:41 BP 130 / 88; vc1 18:46 Body Mass Index 51.36 (181.44 kg, 187.96 cm) cm10 18:46 Pain Scale: Adult cm10 MDM: 18:48 Patient medically screened. ms3 18:48 Differential diagnosis: Nonspecific abd pain, gastritis, cholecystitis. ms3 21:05 Transition of care: After a detail discussion of the patient's case, care is ms3 transferred to Pantera Schwarz MD. 21:23 Data reviewed: vital signs, nurses notes, old medical records, lab test result(s), sp4 radiologic studies, CT scan, ultrasound. Consideration of Admission/Observation Escalation of care including admission/observation considered. ED course: CT today is unremarkable, ultrasound is normal, labs unremarkable. Patient's pain likely comes from muscular source around the spine on the right side. On abdominal exam there is no rebound tenderness no signs of peritonitis. Patient states that there is pain when he is on his feet for prolonged period. We have offered Toradol and Flexeril for pain control and patient agreed. Will advise Flexeril and Naprosyn p.o. as needed at home as needed for pain. ED course: Patient is stable for discharge home. 03/09 18:44 Order name: CBC with Diff; Complete Time: 19:56 cp 03/09 18:44 Order name: CMP; Complete Time: 19:56 cp 03/09 18:44 Order name: Lipase; Complete Time: 19:56 cp 03/09 18:44 Order name: Urinalysis w/ reflexes; Complete Time: 20:55 cp 03/09 18:48 Order name: US Abdomen Limited; Complete Time: 19:56 ms3 03/09 19:57 Order name: CT Abd/Pelvis - IV Contrast Only; Complete Time: 21:18 ms3 03/09 18:44 Order name: IV Saline Lock; Complete Time: 18:55 cp 03/09 18:44 Order name: Labs collected and sent; Complete Time: 18:55 cp 03/09 18:44 Order name: NPO; Complete Time: 20:23 cp Administered Medications: 21:42 Drug: Ketorolac IVP 30 mg Route: IVP; Site: right antecubital; vc1 21:42 Follow up: Response: Medication administered at discharge. vc1 21:42 Drug: Cyclobenzaprine PO 10 mg Route: PO; vc1 21:42 Follow up: Response: Medication administered at discharge. vc1 Disposition Summary: 03/09/23 21:26 Discharge Ordered Location: Home sp4 Problem: new sp4 Symptoms: have improved sp4 Condition: Stable sp4 Diagnosis - Upper abdominal pain, unspecified sp4 - Fatty liver, right upper quadrant abdominal pain, right upper back pain sp4 Followup: ms3 - With: - When: 2 - 3 days - Reason: Recheck today's complaints Discharge Instructions: - Discharge Summary Sheet ms3 - Abdominal Pain, Adult ms3 - Flank Pain, Adult, [id number] sp4 Forms: - Patient Portal Instructions sp4 Prescriptions: - naproxen 500 mg Oral tablet - take 1 tablet by ORAL route every 12 hours PRN pain; 30 tablet; Refills: 0, sp4 Product Selection Permitted - Cyclobenzaprine 10 mg Oral Tablet - take 1 tablet by ORAL route every 8 hours As needed; 30 tablet; Refills: 0, sp4 Product Selection Permitted Signatures: Dispatcher [employer] EDChon Fuller PA PA cp Sims, Marcus, DO DO ms3 Leigh Laughlin RN RN vc1 Pantera Schwarz MD MD sp4 Nicky Soares RN RN cm10
--- NOTE | 2023-03-09 21:26 | ER ---
Nurse's Notes [facility] Name: Ziyad Parker Age: 27 yrs Sex: Male : 1995 Arrival Date: 03/09/2023 Time: 18:14 Bed 13 Private MD: Diagnosis: Upper abdominal pain, unspecified;Fatty liver, right upper quadrant abdominal pain, right upper back pain Presentation: 03/09 18:46 Chief complaint: Patient states: RUQ pain onset today at work. Pt reports vomiting X1 cm10 today, no diarrhea. Pt states that the pain radiates to his back and describes it as a sharp and rates it 5/10. Coronavirus screen: Client denies travel out of the [place] in the last 14 days. Ebola Screen: Patient denies travel to an Ebola-affected area in the 21 days before illness onset. No symptoms or risks identified at this time. Initial Sepsis Screen: Does the patient meet any 2 criteria? No. Patient's initial sepsis screen is negative. Does the patient have a suspected source of infection? No. Patient's initial sepsis screen is negative. Risk Assessment: Do you want to hurt yourself or someone else? Patient reports no desire to harm self or others. Onset of symptoms was March 09, 2023. 18:46 Method Of Arrival: Ambulatory cm10 18:46 Acuity: EDUIN 3 cm10 Triage Assessment: 18:48 General: Appears in no apparent distress. comfortable, Behavior is calm, cooperative. cm10 Neuro: No deficits noted. Level of Consciousness is awake, alert, obeys commands, Oriented to person, place, time, situation. Respiratory: No deficits noted. Airway is patent Respiratory effort is even, unlabored, Respiratory pattern is regular, symmetrical. 20:20 Pain: Complains of pain in right upper quadrant Pain radiates to anterior aspect of vc1 right lateral abdomen Pain currently is 7 out of 10 on a pain scale. EENT: No deficits noted. No signs and/or symptoms were reported regarding the EENT system. Cardiovascular: No deficits noted. Reports. GI: Abdomen is round non-distended, Reports upper abdominal pain, nausea, upper right abdomen that radiates to the right lateral side. : No deficits noted. No signs and/or symptoms were reported regarding the genitourinary system. Derm: No deficits noted. No signs and/or symptoms reported regarding the dermatologic system. Musculoskeletal: No deficits noted. No signs and/or symptoms reported regarding the musculoskeletal system. Historical: - Allergies: 18:47 No Known Allergies; cm10 - Home Meds: 18:47 None [Active]; cm10 - PMHx: 18:47 Sleep Apnea; cm10 - PSHx: 18:47 None; cm10 - Immunization history:: Adult Immunizations up to date. - Social history:: Smoking status: Patient denies any tobacco usage or history of. - Family history:: not pertinent. Screenin:13 [facility] ED Fall Risk Assessment (Adult) History of falling in the last 3 months, vc1 including since admission No falls in past 3 months (0 pts) Confusion or Disorientation No (0 pts) Intoxicated or Sedated No (0 pts) Impaired Gait No (0 pts) Mobility Assist Device Used No (0 pt) Altered Elimination No (0 pt) Score/Fall Risk Level 0 - 2 = Low Risk Oriented to surroundings, Maintained a safe environment, Educated pt \T\ family on fall prevention, incl call for assistance when getting out of bed. Abuse screen: Denies threats or abuse. Nutritional screening: No deficits noted. Tuberculosis screening: No symptoms or risk factors identified. Assessment: 20:03 Reassessment: placed in room, waiting on urine. vc1 20:21 Reassessment: Pt states he doesn't need anything for pain at this moment. Pain: vc1 Complains of pain in anterior aspect of right lateral abdomen and right upper quadrant. GI: Bowel sounds present X 4 quads. Abd is soft. 21:25 Reassessment: No changes from previously documented assessment. Patient and/or family vc1 updated on plan of care and expected duration. Pain level reassessed. Patient is alert, oriented x 3, equal unlabored respirations, skin warm/dry/pink. Vital Signs: 18:46 BP 137 / 90; Pulse 95; Resp 16; Temp 98.1; Pulse Ox 95% ; Weight 181.44 kg; Height 6 cm10 ft. 2 in. ; Pain 5/10; 21:25 Pulse 84; Resp 16; Pulse Ox 100% ; vc1 21:41 BP 130 / 88; vc1 18:46 Body Mass Index 51.36 (181.44 kg, 187.96 cm) cm10 18:46 Pain Scale: Adult 10 ED Course: 18:18 Patient arrived in ED. mr 18:20 Sae Larsen DO is Attending Physician. ms3 18:20 Chon Wagner PA is PHCP. cp 18:47 Triage completed. cm10 18:48 Arm band placed on Patient placed in waiting room. cm10 18:55 CBC with Diff Sent. cm10 18:55 CMP Sent. cm10 18:55 Lipase Sent. cm10 18:55 Initial lab(s) drawn, by al, sent to lab. Inserted saline lock: 20 gauge in right cm10 antecubital area, using aseptic technique. Blood collected. 19:23 US Abdomen Limited In Process Unspecified. EDMS 20:22 Leigh Laughlin, RN is Primary Nurse. vc1 20:22 Patient has correct armband on for positive identification. Bed in low position. Call vc1 light in reach. Pulse ox on. NIBP on. 21:02 CT Abd/Pelvis - IV Contrast Only In Process Unspecified. EDMS 21:06 Attending Physician role handed off by Sae Larsen DO sp4 21:06 Pantera Schwarz MD is Attending Physician. sp4 21:26 Dl Valencia MD is Referral Physician. sp4 21:50 No provider procedures requiring assistance completed. IV discontinued, intact, vc1 bleeding controlled, No redness/swelling at site. Pressure dressing applied. 21:52 Provided Education on: Don't drive with muscle relaxant. vc1 Administered Medications: 21:42 Drug: Ketorolac IVP 30 mg Route: IVP; Site: right antecubital; vc1 21:42 Follow up: Response: Medication administered at discharge. vc1 21:42 Drug: Cyclobenzaprine PO 10 mg Route: PO; vc1 21:42 Follow up: Response: Medication administered at discharge. vc1 Medication: 20:22 VIS not applicable for this client. vc1 Outcome: 21:26 Discharge ordered by . sp4 21:52 Discharged to home ambulatory. vc1 21:52 Condition: good 21:52 Discharge instructions given to patient, Instructed on discharge instructions, follow up and referral plans. medication usage, Demonstrated understanding of instructions, follow-up care, medications, Prescriptions given X 2. 21:54 Patient left the ED. vc1 Signatures: Dispatcher [employer] [facility] ManzanoBria kauffman mr Chon Wagner PA PA cp Sims, Marcus, DO GILL ms3 Leigh Laughlin, RN RN vc1 Pantera Schwarz MD MD sp4 Nicky Soares, RN RN cm10
[2023-03-09] MEDS ORDERED: KETOROLAC 30 MG/ML INJ ONE (21:49)
[2023-03-09] MEDS ORDERED: CYCLOBENZAPRINE 10 MG TAB ONE (21:49)
[2023-03-09 22:30] VITALS: TEMP 98.1
[2023-03-09 22:35] VITALS: O2SAT 100
[2023-03-09 22:41] VITALS: BP 130/88
== END 2023-03-09 21:54 | disposition home or self-care (01) ==
LOC: ER 18:14
DX: R10.11 Right upper quadrant pain (principal); K76.0 Fatty (change of) liver, not elsewhere classified; M54.9 Dorsalgia, unspecified
CPT/HCPCS: 85025; 81001; 36415; 83690; 80053; 74177; 76705; 96374; 99284; Q9967

== ENCOUNTER 2023-03-28 16:42 | Emergency (ER) | payer OTHER ==
--- OUTSIDE RECORDS SUMMARY | 2023-03-28 17:06 | XMS REPORT | Continuity of Care Document ---
:1995 Author Organization [facility] t Address [address] [facility]. [address] [place] [address] Care Team Providers Name Role Phone Pcp, [...] ELIZABETH PUENTE Attending Clinician Unavailable Doctor Unassigned, [place] Attending Clinician Unavailable SARAH BETH SAMPSON Attending Clinician Unavailable Sarah Beth Sampson MD Attending Clinician JAVI REARDON Attending Clinician Unavailable DANY GARCIA Attending Clinician Unavailable SULTANA OLGUIN Attending Clinician Unavailable Payers Payer Name Policy Type Policy Number Effective Date Expiration Date Bernabe KOTHARI [id number] 2021 00:00:00 Problems Condition Condition Condition Status Onset Resolution Last Treating Co mments Source Name Details Category Date Date Treatment Clinician Date No known No known Disease Unive rs active active ity of problems problems [facility] Allergies, Adverse Reactions, Alerts Allergy Allergy Status Severity Reaction(s) Onset Inactive Treating Comm ents Source Name Type Date Date Clinician NO KNOWN Drug Active Univers ALLERGIE Class ity of S [facility] Social History Social Habit Start Date Stop Date Quantity Comments Source History of tobacco Cigarette Smoker [place] of use [facility] Sexual orientation Univer sity [facility] Exposure to 2022-08-01 2022-08-11 Not sure [facility] SARS-CoV-2 (event) 00:00:00 10:21:00 [facility] Tobacco use and 2022-08-11 2022-08-11 Smokeless Universit y of exposure 00:00:00 00:00:00 tobacco non-user [facility] dical [place] History of Social 2022-08-11 2022-08-11 Univers ity of function 00:00:00 00:00:00 [facility] Sex Ass[birth year] At [birth year] Universit y of 00:00:00 00:00:00 [facility] Smoking Status Start Date Stop Date Source Tobacco smoking [facility] xa consumption unknown Medical Bran ch Ex-smoker 2022-08-11 00:00:00 2022-08-11 [place] o f [place] 00:00:00 [facility] Medications Ordered Filled Start Stop Current Ordering Indication Dosage Frequency Signature Comments Components Source Medication Medication Date Date Medication? Clinician (SIG) Name Name ibuprofen Yes [id number] 600mg Take 1 Univers 600 mg 7-12 tablet by ity of tablet 00:00: mouth [place] 00 every 6 Medical (six) Branch hours as needed for Pain (scale 4-6). amoxicillin Yes [id number] 1{tbl} Take 1 Univers -clavulanat 7-12 tablet by ity of e 875-125 00:00: mouth [place] mg per 00 every 12 Medical tablet (twelve) Branch hours. azithromyci Yes [id number] 250mg Take 1 Univers n 7-12 tablet by ity of (ZITHROMAX 00:00: mouth [place] Z-JAY) 250 00 SEE-INSTRU Med ical mg tablet CTIONS. Branch Take 500 mg day 1, then 250 mg days 2 to 5. benzonatate Yes [id number] 200mg Take 1 Univers 200 mg 7-12 capsule by ity of capsule 00:00: mouth 3 [place] 00 (three) Medical times Branch daily as needed for Cough for up to 20 doses. azithromyci 3-0 Yes [id number] Z pack as Univers n 3-07 directed. ity of (ZITHROMAX 00:00: [place] Z-JAY) 250 00 Medical mg tablet Branch azithromyci 2022-0 Yes [id number] Z pack as Univers n 3-07 directed. ity of (ZITHROMAX 00:00: [place] Z-JAY) 250 00 Medical mg tablet Branch benzonatate 2022-0 3- No [id number] 200mg Take 1 Univers 200 mg 3-07 03-18 capsule by ity of capsule 00:00: 04:59 mouth 3 [place] 00 :00 (three) Medical times Branch daily as needed for Cough for up to 10 days. ondansetron 2022-0 3- No [id number] 4mg Take 1 Univers 4 mg 3- 03-13 tablet by ity of disintegrat 00:00: 04:59 [place] tablet [place] :00 every 8 Medica l (eight) Branch hours as needed for Nausea and Vomiting (N/V) for up to 5 days. benzonatate 3-0 Yes [id number] 200mg Take 2 Univers 100 mg 1-09 capsules ity of capsule 00:00: by mouth [place] 00 every 8 Medical (eight) Branch hours as needed for Cough. bromphenira 3-0 Yes [id number] 10mL Take 10 mL Univers mine-pseudo 1-09 by mouth 4 it y of ephedrine-D 00:00: (four[place] (BROMFED 00 times Medical DM) 2-30-10 daily as Bran ch mg/5 mL needed for syrup Congestion /Allergies . benzonatate 2023-0 Yes [id number] 200mg Take 2 Univers 100 mg 1-09 capsules ity of capsule 00:00: by mouth [place] 00 every 8 Medical (eight) Branch hours as needed for Cough. bromphenira 2023-0 Yes [id number] 10mL Take 10 mL Univers mine-pseudo 1-09 by mouth 4 it y of ephedrine-D 00:00: (four[place] (BROMFED 00 times Medical DM) 2-30-10 daily as Bran ch mg/5 mL needed for syrup Congestion /Allergies . benzonatate 2022-0 Yes [id number] 200mg Take 2 Univers 100 mg 1-09 capsules ity of capsule 00:00: by mouth [place] 00 every 8 Medical (eight) Branch hours as needed for Cough. bromphenira 2022-0 Yes [id number] 10mL Take 10 mL Univers mine-pseudo 1-09 by mouth 4 it y of ephedrine-D 00:00: (four[place] (BROMFED 00 times Medical DM) 2-30-10 daily as Bran ch mg/5 mL needed for syrup Congestion /Allergies . benzonatate 2022-0 Yes [id number] 200mg Take 2 Univers 100 mg 1-09 capsules ity of capsule 00:00: by mouth [place] 00 every 8 Medical (eight) Branch hours as needed for Cough. bromphenira 2022-0 Yes [id number] 10mL Take 10 mL Univers mine-pseudo 1-09 by mouth 4 it y of ephedrine-D 00:00: (four[place] (BROMFED 00 times Medical DM) 2-30-10 daily as Bran ch mg/5 mL needed for syrup Congestion /Allergies . amoxicillin 2022-2022- No [id number] 1{tbl} Take 1 Univers -clavulanat 08-11 tablet by it y of e 00:00: 05:59 mouth in [place] (AUGMENTIN) 00 :00 the Medical 875-125 mg morning Branch per tablet and 1 tablet in the evening. Do all this for 7 days. amoxicillin 2022-0 2022- No [id number] 1{tbl} Take 1 Univers -clavulanat 08-1117 tablet by it y of e 00:00: 05:59 mouth in [place] (AUGMENTIN) 00 :00 the Medical 875-125 mg morning Branch per tablet and 1 tablet in the evening. Do all this for 7 days. busPIRone 2021-08 Yes 10mg Take 10 mg Un sukhdeep 10 mg 0-15 by mouth ity of tablet 17:59: in the [place] [address] morning Medical and 10 mg Branch in the evening. busPIRone 2021-08 Yes 10mg Take 10 mg Un sukhdeep 10 mg 0-15 by mouth ity of tablet 17:59: in the [place] [address] morning Medical and 10 mg Branch in the evening. busPIRone 2021-08 Yes 10mg Take 10 mg Un sukhdeep 10 mg 0-15 by mouth ity of tablet 17:59: in the [place] [address] morning Medical and 10 mg Branch in the evening. busPIRone 2021-08 Yes 10mg Take 10 mg Un sukhdeep 10 mg 0-15 by mouth ity of tablet 17:59: in the [place] [address] morning Medical and 10 mg Branch in the evening. busPIRone 2021-08 Yes 10mg Take 10 mg Un sukhdeep 10 mg 0-15 by mouth ity of tablet 17:59: in the [place] [address] morning Medical and 10 mg Branch in the evening. busPIRone 2021-08 Yes 10mg Take 10 mg Un sukhdeep 10 mg 0-15 by mouth ity of tablet 17:59: in the [place] [address] morning Medical and 10 mg Branch in the evening. busPIRone 2021-08 Yes 10mg Take 10 mg Un sukhdeep 10 mg 0-15 by mouth ity of tablet 17:59: in the [place] [address] morning Medical and 10 mg Branch in the evening. benzonatate 2021-08 Yes [id number] 200mg Take 2 Univers 100 mg 0-15 capsules ity of capsule 00:00: by mouth [place] 00 every 8 Medical (eight) Branch hours as needed for Cough. guaiFENesin 2021-08 Yes [id number] 400mg Take 1 Univers 400 mg 0-15 tablet by ity of tablet 00:00: mouth [place] 00 every 4 Medical (four) Branch hours as needed for Cough. albuterol 2021-08 Yes [id number] 2{puff} Inhale 2 Univers 90 0-15 Puffs ity of mcg/actuati 00:00: every 6 [place] on inhaler 00 (six) Medical hours as Branch needed for Chest tightness. benzonatate 2021-08 Yes [id number] 200mg Take 2 Univers 100 mg 0-15 capsules ity of capsule 00:00: by mouth [place] 00 every 8 Medical (eight) Branch hours as needed for Cough. guaiFENesin 2021-08 Yes [id number] 400mg Take 1 Univers 400 mg 0-15 tablet by ity of tablet 00:00: mouth [place] 00 every 4 Medical (four) Branch hours as needed for Cough. albuterol 2022-1 Yes [id number] 2{puff} Inhale 2 Univers 90 0-15 Puffs ity of mcg/actuati 00:00: every 6 [place] as on inhaler 00 (six) Medical hours as Branch needed for Chest tightness. benzonatate 2021-08 Yes [id number] 200mg Take 2 Univers 100 mg 0-15 capsules ity of capsule 00:00: by mouth [place] 00 every 8 Medical (eight) Branch hours as needed for Cough. guaiFENesin 2021-08 Yes [id number] 400mg Take 1 Univers 400 mg 0-15 tablet by ity of tablet 00:00: mouth [place] 00 every 4 Medical (four) Branch hours as needed for Cough. albuterol 2021-08 Yes [id number] 2{puff} Inhale 2 Univers 90 0-15 Puffs ity of mcg/actuati 00:00: every 6 [place] as on inhaler 00 (six) Medical hours as Branch needed for Chest tightness. guaiFENesin 2021-08 Yes [id number] 400mg Take 1 Univers 400 mg 0-15 tablet by ity of tablet 00:00: mouth [place] 00 every 4 Medical (four) Branch hours as needed for Cough. albuterol 2021-08 Yes [id number] 2{puff} Inhale 2 Univers 90 0-15 Puffs ity of mcg/actuati 00:00: every 6 [place] as on inhaler 00 (six) Medical hours as Branch needed for Chest tightness. guaiFENesin 2021-08 Yes [id number] 400mg Take 1 Univers 400 mg 0-15 tablet by ity of tablet 00:00: mouth [place] 00 every 4 Medical (four) Branch hours as needed for Cough. albuterol 2021-08 Yes [id number] 2{puff} Inhale 2 Univers 90 0-15 Puffs ity of mcg/actuati 00:00: every 6 [place] as on inhaler 00 (six) Medical hours as Branch needed for Chest tightness. guaiFENesin 2021-08 Yes [id number] 400mg Take 1 Univers 400 mg 0-15 tablet by ity of tablet 00:00: mouth [place] 00 every 4 Medical (four) Branch hours as needed for Cough. albuterol 2021-08 Yes [id number] 2{puff} Inhale 2 Univers 90 0-15 Puffs ity of mcg/actuati 00:00: every 6 [place] as on inhaler 00 (six) Medical hours as Branch needed for Chest tightness. guaiFENesin 2021-08 Yes [id number] 400mg Take 1 Univers 400 mg 0-15 tablet by ity of tablet 00:00: mouth [place] 00 every 4 Medical (four) Branch hours as needed for Cough. albuterol 2021-08 Yes [id number] 2{puff} Inhale 2 Univers 90 0-15 Puffs ity of mcg/actuati 00:00: every 6 [place] as on inhaler 00 (six) Medical hours as Branch needed for Chest tightness. benzonatate 2021-083- No [id number] 200mg Take 2 Univers 100 mg 0-15 -09 capsules ity of capsule 00:00: 00:00 by mouth [place] 00 :00 every 8 Medical (eight) Branch hours as needed for Cough. fluticasone Yes [id number] 2{spray Use 2 Univers propionate 3-13 } Sprays in ity of 50 00:00: each [place] mcg/actuati 00 nostril Medic al on nasal daily. Branch spray fluticasone Yes [id number] 2{spray Use 2 Univers propionate 3-13 } Sprays in ity of 50 00:00: each [place] mcg/actuati 00 nostril Medic al on nasal daily. Branch spray fluticasone Yes [id number] 2{spray Use 2 Univers propionate 3-13 } Sprays in ity of 50 00:00: each [place] mcg/actuati 00 nostril Medic al on nasal daily. Branch spray fluticasone Yes [id number] 2{spray Use 2 Univers propionate 3-13 } Sprays in ity of 50 00:00: each [place] mcg/actuati 00 nostril Medic al on nasal daily. Branch spray fluticasone Yes [id number] 2{spray Use 2 Univers propionate 3-13 } Sprays in ity of 50 00:00: each [place] mcg/actuati 00 nostril Medic al on nasal daily. Branch spray fluticasone Yes [id number] 2{spray Use 2 Univers propionate 3-13 } Sprays in ity of 50 00:00: each [place] mcg/actuati 00 nostril Medic al on nasal daily. Branch spray fluticasone Yes [id number] 2{spray Use 2 Univers propionate 3-13 } Sprays in ity of 50 00:00: each [place] mcg/actuati 00 nostril Medic al on nasal daily. Branch spray fluticasone 0 Yes [id number] 2{spray Use 2 Univers propionate 3-13 } Sprays in ity of 50 00:00: each [place] mcg/actuati 00 nostril Medic al on nasal daily. Branch spray bromphenira Yes [id number] 10mL Take 10 mL Univers mine-pseudo 3-13 by mouth 3 it y of ephedrine-D 00:00: (three) [place] M (BROMFED 00 times Medical DM) 2-30-10 daily as Bran ch mg/5 mL needed for syrup Cough. fluticasone Yes [id number] 2{spray Use 2 Univers propionate 3-13 } Sprays in ity of 50 00:00: each [place] mcg/actuati 00 nostril Medic al on nasal daily. Branch spray bromphenira Yes [id number] 10mL Take 10 mL Univers mine-pseudo 3-13 by mouth 3 it y of ephedrine-D 00:00: (three) [place] M (BROMFED 00 times Medical DM) 2-30-10 daily as Bran ch mg/5 mL needed for syrup Cough. fluticasone Yes [id number] 2{spray Use 2 Univers propionate 3-13 } Sprays in ity of 50 00:00: each [place] mcg/actuati 00 nostril Medic al on nasal daily. Branch spray bromphenira Yes [id number] 10mL Take 10 mL Univers mine-pseudo 3-13 by mouth 3 it y of ephedrine-D 00:00: (three) [place] M (BROMFED 00 times Medical DM) 2-30-10 daily as Bran ch mg/5 mL needed for syrup Cough. bromphenira 2021- No [id number] 10mL Take 10 mL Univers mine-pseudo 3-13 10-15 by mouth 3 i ty of ephedrine-D 00:00: 00:00 (three) [place] (BROMFED 00 :00 times Medical DM) 2-30-10 daily as Bran ch mg/5 mL needed for syrup Cough. bromphenira 2020-08 Yes [id number] 5mL Take 5 mL Univers mine-pseudo 1-21 by mouth 4 it y of ephedrine-D 00:00: (four) [place] M (BROMFED 00 times Medical DM) 2-30-10 daily as Bran ch mg/5 mL needed for syrup Cold symptoms. bromphenira 2020-08 Yes [id number] 5mL Take 5 mL Univers mine-pseudo 1-21 by mouth 4 it y of ephedrine-D 00:00: (four[place] (BROMFED 00 times Medical DM) 2-30-10 daily as Bran ch mg/5 mL needed for syrup Cold symptoms. bromphenira 2020-08 Yes [id number] 5mL Take 5 mL Univers mine-pseudo 1-21 by mouth 4 it y of ephedrine-D 00:00: (four[place] (BROMFED 00 times Medical DM) 2-30-10 daily as Bran ch mg/5 mL needed for syrup Cold symptoms. bromphenira 2020-08 Yes [id number] 5mL Take 5 mL Univers mine-pseudo 1-21 by mouth 4 it y of ephedrine-D 00:00: (four[place] (BROMFED times Medical DM) 2-30-10 daily as Bran ch mg/5 mL needed for syrup Cold symptoms. bromphenira 2020-08 Yes [id number] 5mL Take 5 mL Univers mine-pseudo 1-21 by mouth 4 it y of ephedrine-D 00:00: (four[place] (BROMFED 00 times Medical DM) 2-30-10 daily as Bran ch mg/5 mL needed for syrup Cold symptoms. bromphenira 2020-08 Yes [id number] 5mL Take 5 mL Univers mine-pseudo 1-21 by mouth 4 it y of ephedrine-D 00:00: (four[place] (BROMFED 00 times Medical DM) 2-30-10 daily as Bran ch mg/5 mL needed for syrup Cold symptoms. bromphenira 2020-08 Yes [id number] 5mL Take 5 mL Univers mine-pseudo 1-21 by mouth 4 it y of ephedrine-D 00:00: (four[place] (BROMFED 00 times Medical DM) 2-30-10 daily as Bran ch mg/5 mL needed for syrup Cold symptoms. benzonatate 2020-08 Yes [id number] 100mg Take 1 Univers 100 mg 1-21 capsule by ity of capsule 00:00: mouth 3 (three) Medical times Branch daily as needed for Cough. bromphenira 2020-08 Yes [id number] 5mL Take 5 mL Univers mine-pseudo 1-21 by mouth 4 it y of ephedrine-D 00:00: (four) [place] (BROMFED 00 times Medical DM) 2-30-10 daily as Bran ch mg/5 mL needed for syrup Cold symptoms. benzonatate 2020-08 Yes [id number] 100mg Take 1 Univers 100 mg 1-21 capsule by ity of capsule 00:00: mouth 3 (three) Medical times Branch daily as needed for Cough. bromphenira 2020-08 Yes [id number] 5mL Take 5 mL Univers mine-pseudo 1-21 by mouth 4 it y of ephedrine-D 00:00: (four) [place] (BROMFED 00 times Medical DM) 2-30-10 daily as Bran ch mg/5 mL needed for syrup Cold symptoms. bromphenira 2020-08 Yes [id number] 5mL Take 5 mL Univers mine-pseudo 1-21 by mouth 4 it y of ephedrine-D 00:00: (four) [place] (BROMFED 00 times Medical DM) 2-30-10 daily as Bran ch mg/5 mL needed for syrup Cold symptoms. bromphenira 2020-08 Yes [id number] 5mL Take 5 mL Univers mine-pseudo 1-21 by mouth 4 it y of ephedrine-D 00:00: (four) [place] (BROMFED 00 times Medical DM) 2-30-10 daily as Bran ch mg/5 mL needed for syrup Cold symptoms. bromphenira 2020-08 Yes [id number] 5mL Take 5 mL Univers mine-pseudo 1-21 by mouth 4 it y of ephedrine-D 00:00: (four) [place] (BROMFED 00 times Medical DM) 2-30-10 daily as Bran ch mg/5 mL needed for syrup Cold symptoms. benzonatate 2020-08- No [id number] 100mg Take 1 Univers 100 mg 08-23-13 [...] 06/21/21 at 0600, STAT benzonatate 2020-08 Yes [id number] 100mg Take 1 Univers 100 mg -19 capsule by ity of capsule 00:00: mouth 3 [place] 00 (three) Medical times Branch daily as needed for Cough. benzonatate 2020-08 Yes [id number] 100mg Take 1 Univers 100 mg -19 capsule by ity of capsule 00:00: mouth 3 [place] 00 (three) Medical times Branch daily as needed for Cough. benzonatate 2020-08 Yes [id number] 100mg Take 1 Univers 100 mg 1-19 capsule by ity of capsule 00:00: mouth 3 [place] 00 (three) Medical times Branch daily as needed for Cough. benzonatate 2020-08- No [id number] 100mg Take 1 Univers 100 mg 08-21- capsule by ity of capsule 00:00: 00:00 mouth 3 [place] 00 :00 (three) Medical times Branch daily as needed for Cough. Vital Signs Vital Name Observation Time Observation Value Comments Source Systolic blood 2023-02-11 13:28:52 160 [facility]Hg[facility] 2023-02-11 13:28:52 83 mm[Hg] [facility] Heart rate 2023-02-11 13:28:52 89 /min [facility] Body temperature 2023-02-11 13:28:52 37.11 [place] [facility] [place] [facility] Respiratory rate 2023-02-11 13:28:52 18 /min [facility] [place] [facility] Body weight 2023-02-11 13:15:00 190.511 kg [facility] [place] [facility] BMI 2023-02-11 13:15:00 53.92 kg/m2 [facility] [place] [facility] Oxygen saturation in 2023-02-11 13:15:00 99 /min University of Arterial blood by [place] [employer] Pulse oximetry Branch Systolic blood 2022-10-07 22:53:00 138 mm[Hg] Univer sity of pressure [place] [facility] Diastolic blood 2022-10-07 22:53:00 88 mm[Hg] Unive rsity of pressure [place] [facility] Heart rate 2022-10-07 22:53:00 108 /min [facility] [place] [facility] Body temperature 2022-10-07 22:53:00 37.33 [place] [facility] [place] [facility] Respiratory rate 2022-10-07 22:53:00 16 /min [facility] [place] [facility] Body height 2022-10-07 22:53:00 188 cm [facility] [place] [facility] Body weight 2022-10-07 22:53:00 190.828 kg [facility] [place] [facility] BMI 2022-10-07 22:53:00 54.01 kg/m2 [facility] [place] [facility] Oxygen saturation in 2022-10-07 22:53:00 96 /min University of Arterial blood by [place] [employer] Pulse oximetry Branch Systolic blood 2022-08-11 16:54:00 131 mm[Hg] Univer sity of pressure [place] [facility] Diastolic blood 2022-08-11 16:54:00 77 mm[Hg] Unive rsity of pressure [place] [facility] Heart rate 2022-08-11 16:54:00 91 /min [facility] [place] [facility] Body temperature 2022-08-11 16:54:00 37 [place] [facility] [place] [facility] Respiratory rate 2022-08-11 16:54:00 16 /min [facility] [place] [facility] Body height 2022-08-11 16:54:00 188 cm [facility] [place] [facility] Body weight 2022-08-11 16:54:00 183.072 kg [facility] [place] [facility] BMI 2022-08-11 16:54:00 51.82 kg/m2 [facility] [place] [facility] Oxygen saturation in 2022-08-11 16:54:00 97 /min University of Arterial blood by [place] Medi fay Pulse oximetry Branch Systolic blood 2022-05-17 23:25:00 162 mm[Hg] Univer sity of pressure [place] [facility] Diastolic blood 2022-05-17 23:25:00 74 mm[Hg] Unive rsity of pressure [place] [facility] Heart rate 2022-05-17 23:01:00 96 /min [facility] [place] [facility] Body temperature 2022-05-17 23:01:00 36.5 [place] [facility] [place] [facility] Body height 2022-05-17 23:01:00 188 cm [facility] [place] [facility] Body weight 2022-05-17 23:01:00 184.342 kg [facility] [place] [facility] BMI 2022-05-17 23:01:00 52.18 kg/m2 [facility] [place] [facility] Oxygen saturation in 2022-05-17 23:01:00 95 /min University of Arterial blood by [facility] Pulse oximetry Branch Systolic blood 2021-10-13 15:39:00 137 mm[Hg] Univer sity of pressure [place] [facility] Diastolic blood 2021-10-13 15:39:00 82 mm[Hg] Unive rsity of pressure [place] [facility] Heart rate 2021-10-13 15:36:00 83 /min [facility] [place] [facility] Body temperature 2021-10-13 15:36:00 36.67 [place] [facility] [place] [facility] Respiratory rate 2021-10-13 15:36:00 18 /min [facility] [place] [facility] Body height 2021-10-13 15:36:00 188 cm [facility] [place] [facility] Body weight 2021-10-13 15:36:00 189.059 kg [facility] [place] [facility] BMI 2021-10-13 15:36:00 53.51 kg/m2 [facility] [place] [facility] Oxygen saturation in 2021-10-13 15:36:00 97 /min University of Arterial blood by [facility] Pulse oximetry Branch Systolic blood 2021-06-23 14:47:00 148 mm[Hg] Univer sity of pressure [place] [facility] Diastolic blood 2021-06-23 14:47:00 100 mm[Hg] Unive rsity of pressure [place] [facility] Heart rate 2021-06-23 14:47:00 89 /min [facility] [place] [facility] [place] Body temperature 2021-06-23 14:47:00 36.89 [place] [facility] [place] [facility] Respiratory rate 2021-06-23 14:47:00 18 /min [facility] [place] [facility] Oxygen saturation in 2021-06-23 14:47:00 100 /min University of Arterial blood by [place] [employer] Pulse oximetry Branch Body height 2021-06-23 13:07:00 188 cm [facility] [place] [facility] Body weight 2021-06-23 13:07:00 181.439 kg [facility] [place] [facility] [place] BMI 2021-06-23 13:07:00 51.36 kg/m2 [facility] [place] [facility] Systolic blood 2021-06-21 12:33:00 125 mm[Hg] Univer sity of pressure [place] [facility] Diastolic blood 2021-06-21 12:33:00 71 mm[Hg] Unive rsity of [facility] [place] [facility] Heart rate 2021-06-21 12:33:00 96 /min [facility] [place] [facility] Body temperature 2021-06-21 12:33:00 37.06 [place] [facility] [place] [facility] Respiratory rate 2021-06-21 12:33:00 18 /min [facility] [place] [facility] Oxygen saturation in 2021-06-21 12:33:00 98 /min University of Arterial blood by [employer] Pulse oximetry Branch Body height 2021-06-21 11:33:00 188 cm [facility] [place] [facility] Body weight 2021-06-21 11:33:00 181.439 kg [facility] [place] [facility] BMI 2021-06-21 11:33:00 51.36 kg/m2 [facility] [place] [facility] Procedures Procedure Date / Time Performed Performing Clinician Sour e ASSIGNMENT OF BENEFITS 2023-02-11 13:45:48 Doctor Unassigned, No [facility] Name [facility] Branch CONSENT/REFUSAL FOR 2023-02-11 13:14:01 Doctor Unassigned, No [facility] DIAGNOSIS AND Name Medical Branch TREATMENT POCT MOLECULAR STREP 2022-10-07 22:54:00 Unknown, Attending [facility] POCT MOLECULAR STREP 2022-08-11 17:01:00 Unknown, Attending [facility] POCT MOLECULAR FLU 2022-05-17 23:15:00 Unknown, Attending [facility] POCT MOLECULAR STREP 2022-05-17 23:14:00 Unknown, Attending [facility] POCT MOLECULAR FLU 2021-10-13 15:48:00 Unknown, Attending [facility] POCT MOLECULAR STREP 2021-10-13 15:45:00 Unknown, Attending [facility] ASSIGNMENT OF BENEFITS 2021-10-13 15:31:01 Doctor Unassigned, No [facility] RAPID STREP SCREEN FOR 2021-06-23 13:44:00 [facility] Start End Encounter Admission Attending Care Care Encounter Source Date/Time Date/Time Type Type Clinicians Facility Department ID 2023-02-11 2023-02-11 Emergency X NICHOLAS K [facility] ERT [id number] Univers 08:16:00 08:56:00 ity of [facility] 2023-02-11 2023-02-11 Emergency Tabitha Peterson [facility] [id number] Univers 08:16:00 08:56:00 Monica HAYWOOD 350.1.13.10 i ty [facility] 4.2.7.2.686 [place] [facility] [phone] [place] [id number] 2022-10-07 2022-10-07 Outpatient R ELICIA [facility] [id number] Univers 16:40:00 17:15:10 REENU ity of [facility] 2022-10-07 2022-10-07 Urgent Luiza Rubi [facility] 1.2.840.11 [id number] Univers 16:40:00 17:15:10 Care Unknown, Attending [facility] 350.1.13.10 ity [facility] 4.2.7.2.686 Franco as TL?BLEA [phone] [address] MEDICAL OFFICE BUILDING 2022-08-12 2022-08-12 Letter AbigailKYLAH [id number] Univers 00:00:00 00:00:00 (Out) Daniela EVANS 350.1.13.10 it y of HOSPITAL 4.2.7.2.686 Franco as [phone] [address] 2022-08-11 2022-08-11 Outpatient [facility] [id number] Univers 10:20:00 11:06:43 [facility] 2022-08-11 2022-08-11 Urgent [facility] 1.2.840.114 [id number] Univers 10:20:00 11:06:43 Care Unknown, Attending HEALTH 350.1.13.10 ity of [place] 4.2.7.2.686 Franco as TL?BLEA [phone] [address] 2022-06-10 2022-06-10 [facility] 1.2.840.114 [id number] Univers 00:00:00 00:00:00 [facility] 350.1.13.10 it y of [place] 4.2.7.2.686 Franco as TL?BLEA [phone] [address] 2022-05-18 2022-05-18 Letter KYLAH Hardy 1.2.840.114 [id number] Univers 00:00:00 00:00:00 (Out) Sanjuana EVANS 350.1.13.10 it y of HOSPITAL 4.2.7.2.686 Franco as [id number] [address] 2022-05-17 2022-05-17 Outpatient Freda [facility] [id number] Univers 18:00:00 18:36:21 GENI divine [facility] 2022-05-17 2022-05-17 Urgent [facility] 1.2.840.114 [id number] Univers 18:00:00 18:36:21 Care Unknown, Attending HEALTH 350.1.13.10 ity of [facility] 4.2.7.2.686 Franco as TL?BLEA [id number] [address] MEDICAL OFFICE BUILDING 2021-11-09 2021-11-09 Refill TERELL Puente [id number] Univers 00:00:00 00:00:00 Elizabeth PEDIATRIC 350.1.13.10 ity [place].2.686 [place] [phone] [address] 2021-10-14 2021-10-14 Letter KYLAH Hayes 1.2.840.114 [id number] Univers 00:00:00 00:00:00 (Out) Daniela Abigail EVANS 350.1.13.10 it y of HOSPITAL 4.2.7.2.686 Franco as [id number] [facility] [address] [place] 2021-10-13 2021-10-13 Outpatient R CINDI [facility] [id number] Univers 10:45:00 11:10:45 ELIZABETH bella [facility] 2021-10-13 2021-10-13 Urgent Elizabeth Puente 1.2.840.11 [id number] Univers 10:45:00 11:10:45 Care Unknown, Attending PEDIATRIC 350.1.13. 10 ity [place].7.2.686 [place] [id number] [address] 2021-10-13 2021-10-13 Orders Doctor MONTERO 1.2.840.114 [id number] Univers 00:00:00 00:00:00 Only Unassigned, NATHAN 350.1.13.10 ity of [place] [facility] 4.2.7.2.686 Franco as [phone] [facility] [address] [place] 2021-06-23 2021-06-23 Emergency X [facility] ERT [id number] Univers 07:02:00 08:49:00 SARAH BETH divine [facility] 2021-06-23 2021-06-23 Emergency Critical access hospital [id number] Univers 07:02:00 08:49:00 [facility] 350.1.13.10 it y of [place].7.2.686 [place] [phone] [place] [address] [address] ([facility]) 2021-06-21 2021-06-21 Emergency X WILMER [facility] ERT [id number] Univers 05:23:00 06:34:00 SUDHIRKEITH shayne of [facility] 2021-06-21 2021-06-21 Emergency Wilmer [facility] [id number] Univers 05:23:00 06:34:[address] [facility] 350.1.13.10 it y of [place] 4.2.7.2.686 Steve madrid [place] [phone] [place] [address] [address] ([facility]) 2020-12-12 2020-12-12 Emergency E DANY GARCIA [facility] [id number] 11:12:00 12:11:[address] [facility] 2020-12-09 2020-12-09 [id number] 07:13:00 09:52:00 , [facility] Results Test Description Test Time Test Comments Results Result Comments Source POCT MOLECULAR STREP 2022-10-07 23:01:59 Test Item Value Reference Range Interpretation Comme nts POCT Molecular Strep (test code = 90545-3) Negative Negative Lab Interpretation (test code = 11539-8) Normal [facility] MOLECULAR [id number] 17:09:16 Test Item Value Reference Range Interpretation Comments POCT Molecular Strep (test code = Negative Negative 29667-4) Lab Interpretation (test code = Normal 70707-6) [facility] MOLECULAR [id number] 23:27:42 Test Item Value Reference Range Interpretation Comments POCT Molecular FluA (test code = Negative Negative 67191-3) POCT Molecular FluB (test code = Negative Negative 17384-2) Lab Interpretation (test code = Normal 11107-4) [facility] MOLECULAR [id number] 23:22:56 Test Item Value Reference Range Interpretation Comments POCT Molecular Strep (test code = Negative Negative 54467-2) Lab Interpretation (test code = Normal 30611-8) [facility] MOLECULAR [id number] 15:59:44 Test Item Value Reference Range Interpretation Comments POCT Molecular FluA (test code = Negative Negative 66508-8) POCT Molecular FluB (test code = Negative Negative 83339-1) Lab Interpretation (test code = Normal 24531-4) [facility] [id number] 15:53:01 Test Item Value Reference Range Interpretation Comments POCT Molecular Strep (test code = Negative Negative 17588-9) Lab Interpretation (test code = Normal 10062-7) [facility]
[2023-03-28] MEDS ORDERED: DIAZEPAM 5 MG TABLET ONE (17:38)
[2023-03-28] MEDS ORDERED: dexAMETHasone 10 MG/ML VIAL ONE (17:39)
[2023-03-28] MEDS ORDERED: NA CHLORIDE 0.9% 1,000 ML ONE (17:39)
[2023-03-28] MEDS ORDERED: ONDANSETRON 4 MG/2 ML VIAL ONE (17:39)
[2023-03-28] MEDS ORDERED: KETOROLAC 30 MG/ML INJ ONE (17:39)
[2023-03-28] MEDS ORDERED: MORPHINE 4 MG/ML SYR ONE (17:39)
[2023-03-28 18:03] LABS: Hematocrit 41.1 % (39.6-49.0); Lymphocytes % 19.1 % (15.3-44.8); MCV 82.7 fL (80-100); MPV 7.1 fL (7.6-11.3); Platelets 293 thou/uL (152-406); RBC Red Blood Cell Count 4.96 M/uL (4.33-5.43)
[2023-03-28 18:16] LABS: Urine Bacteria None Seen /HPF (<20); Urine Bilirubin NEGATIVE (Negative); Urine Blood Negative (Negative); Urine Clarity Clear (Clear); Urine Color Light-Yellow (Yellow); Urine Glucose NEGATIVE (Negative); Urine Mucus Slight /HPF (None Seen); Urine Protein TRACE (Negative); Urine RBC <5 /HPF (None Seen); Urine Urobilinogen Normal (Normal)
--- NOTE | 2023-03-28 18:25 | ER ---
Nurse's Notes [facility] Name: Ziyad Parker Age: 27 yrs Sex: Male : 1995 Arrival Date: 03/28/2023 Time: 16:42 Bed 17 Private MD: Diagnosis: Morbid (severe) obesity due to excess calories;Injury of muscle, fascia and tendon of abdomen, lower back and pelvis;Sciatica, right side Presentation: 03/28 16:52 Chief complaint: Patient states: Low back pain since last night. Coronavirus screen: ll1 Vaccine status: Patient reports receiving the 2nd dose of the covid vaccine. Client denies travel out of the [place] in the last 14 days. At this time, the client does not indicate any symptoms associated with coronavirus-19. Ebola Screen: Patient denies travel to an Ebola-affected area in the 21 days before illness onset. Initial Sepsis Screen: Does the patient meet any 2 criteria? No. Patient's initial sepsis screen is negative. Does the patient have a suspected source of infection? Yes: Bone or joint infection. Risk Assessment: Do you want to hurt yourself or someone else? Patient reports no desire to harm self or others. Onset of symptoms was March 27, 2023. 16:52 Method Of Arrival: Ambulatory ll1 16:52 Acuity: EDUIN 4 ll1 Triage Assessment: 16:53 General: Appears uncomfortable, Behavior is calm, cooperative, appropriate for age. ll1 Pain: Complains of pain in back Pain currently is 6 out of 10 on a pain scale. Quality of pain is described as aching. Musculoskeletal: Circulation, motion, and sensation intact. Capillary refill < 3 seconds, Reports pain in back. Historical: - Allergies: 16:51 No Known Allergies; ll1 - PMHx: 16:51 Sleep Apnea; ll1 - PSHx: 16:51 None; ll1 - Immunization history:: Client reports receiving the 2nd dose of the Covid vaccine. - Social history:: Smoking status: Patient denies any tobacco usage or history of. Screenin:00 [facility] ED Fall Risk Assessment (Adult) Score/Fall Risk Level 0 - 2 = Low Risk. Abuse eh3 screen: Denies threats or abuse. Denies injuries from another. Nutritional screening: No deficits noted. Tuberculosis screening: No symptoms or risk factors identified. Assessment: 17:00 General: Appears in no apparent distress. uncomfortable, Behavior is calm, cooperative, eh3 appropriate for age. Pain: Complains of pain in lumbar area. Neuro: Level of Consciousness is awake, alert, obeys commands, Oriented to person, place, time, situation. Cardiovascular: Capillary refill < 3 seconds Patient's skin is warm and dry. Respiratory: Airway is patent Respiratory effort is even, unlabored, Respiratory pattern is regular, symmetrical. GI: Abdomen is round non-distended. Derm: Skin is healthy with good turgor, Skin is pink, warm \T\ dry. Musculoskeletal: Circulation, motion, and sensation intact. 18:00 Reassessment: Patient appears in no apparent distress at this time. Patient and/or eh3 family updated on plan of care and expected duration. Pain level reassessed. Patient is alert, oriented x 3, equal unlabored respirations, skin warm/dry/pink. Vital Signs: 16:52 BP 135 / 59; Pulse 73; Resp 18; Temp 98.5; Pulse Ox 97% on R/A; Weight 183.7 kg; Height ll1 6 ft. 2 in. ; Pain 6/10; 17:00 BP 120 / 51; Pulse 66; Resp 16; Pulse Ox 98% on R/A; eh3 18:00 BP 113 / 51; Pulse 69; Resp 17; Pulse Ox 97% on R/A; eh3 16:52 Body Mass Index 52.00 (183.70 kg, 187.96 cm) ll1 16:52 Pain Scale: Adult ll1 Megha Coma Score: 17:27 Eye Response: spontaneous(4). Motor Response: obeys commands(6). Verbal Response: yogesh oriented(5). Total: 15. ED Course: 16:44 Patient arrived in ED. rg4 16:46 Chon Dalal MD is Attending Physician. yogesh 16:51 Arm band placed on Patient placed in an exam room, on a stretcher. ll1 16:53 Triage completed. ll1 17:00 Patient has correct armband on for positive identification. Bed in low position. Call eh3 light in reach. Side rails up X2. Provided Education on: Use of call alaniz. Pulse ox on. NIBP on. 17:25 Alexa Edwards RN is Primary Nurse. eh3 17:35 Inserted saline lock: 20 gauge in right antecubital area, using aseptic technique. eh3 Blood collected. 18:18 Lumbar Spine (3 Views) XRAY In Process Unspecified. EDMI 18:24 Tae Govea MD is Referral Physician. [facility] 18:52 No provider procedures requiring assistance completed. IV discontinued, intact, eh3 bleeding controlled, No redness/swelling at site. Pressure dressing applied. Administered Medications: 17:30 Drug: Diazepam PO 10 mg Route: PO; eh3 18:31 Follow up: Response: No adverse reaction eh3 17:40 Drug: NS 0.9% IV 1000 ml Route: IV; Rate: 1 bolus; Site: right antecubital; eh3 18:32 Follow up: IV Status: Completed infusion; IV Intake: 1000ml eh3 17:40 Drug: Decadron - Dexamethasone IVP 10 mg Route: IVP; Site: right antecubital; eh3 18:32 Follow up: Response: No adverse reaction eh3 17:40 Drug: Ketorolac IVP 30 mg Route: IVP; Site: right antecubital; eh3 18:32 Follow up: Response: No adverse reaction eh3 17:40 Drug: Ondansetron IVP 4 mg Route: IVP; Site: right antecubital; eh3 18:31 Follow up: Response: No adverse reaction eh3 17:59 Not Given (Patient Refused): morphine IVP or IV 4 mg IVP once over 4 mins eh3 Medication: 18:52 VIS not applicable for this client. eh3 Intake: 18:32 IV: 1000ml; Total: 1000ml. eh3 Outcome: 18:24 Discharge ordered by . [facility] 18:53 Discharged to home ambulatory. eh3 18:53 Condition: stable 18:53 Discharge instructions given to patient, Instructed on discharge instructions, follow up and referral plans. medication usage, Demonstrated understanding of instructions, follow-up care, medications, Prescriptions given X 4. 18:59 Patient left the ED. eh3 Signatures: Dispatcher [employer] EDMI Chon Dalal MD MD cha Garcia, Teresa rg4 Vale Jimenez, RN RN ll1 Alexa Edwards RN RN eh3
--- NOTE | 2023-03-28 18:25 | EDPHYS ---
Physician Documentation [facility] Name: Ziyad Parker Age: 27 yrs Sex: Male : 1995 Arrival Date: 03/28/2023 Time: 16:42 Bed 17 Private MD: ED Physician Chon Dalal HPI: 03/28 17:23 This 27 yrs old Male presents to ER via Ambulatory with complaints of Back yogesh Pain. 17:23 The patient presents with pain that is acute, that is chronic, and decreased range of yogesh motion. The symptoms are located in the low back, lumbar area. Onset: The symptoms/episode began/occurred 1 day(s) ago. Location: right low back. Associated signs and symptoms: The patient has no apparent associated signs or symptoms. The problem was sustained when lifting heavy object. Modifying factors: The patient symptoms are alleviated by remaining still, the patient symptoms are aggravated by lifting, movement, standing. Severity of symptoms: At their worst the symptoms were moderate, in the emergency department the symptoms are unchanged. The patient has experienced similar episodes in the past, a few times. Historical: - Allergies: 16:51 No Known Allergies; ll1 - PMHx: 16:51 Sleep Apnea; ll1 - PSHx: 16:51 None; ll1 - Immunization history:: Client reports receiving the 2nd dose of the Covid vaccine. - Social history:: Smoking status: Patient denies any tobacco usage or history of. ROS: 17:27 Constitutional: Negative for fever, chills, and weight loss, Eyes: Negative for injury, yogesh pain, redness, and discharge, ENT: Negative for injury, pain, and discharge, Neck: Negative for injury, pain, and swelling, Cardiovascular: Negative for chest pain, palpitations, and edema, Respiratory: Negative for shortness of breath, cough, wheezing, and pleuritic chest pain, Abdomen/GI: Negative for abdominal pain, nausea, vomiting, diarrhea, and constipation, : Negative for injury, bleeding, discharge, and swelling, MS/Extremity: Negative for injury and deformity, Skin: Negative for injury, rash, and discoloration, Neuro: Negative for headache, weakness, numbness, tingling, and seizure, Psych: Negative for depression, anxiety, suicide ideation, homicidal ideation, and hallucinations, Allergy/Immunology: Negative for hives, rash, and allergies, Endocrine: Negative for neck swelling, polydipsia, polyuria, polyphagia, and marked weight changes, Hematologic/Lymphatic: Negative for swollen nodes, abnormal bleeding, and unusual bruising. 17:27 Back: Positive for decreased range of motion, pain with movement, radiated pain. Exam: 17:27 Constitutional: This is a well developed, well nourished patient who is awake, alert, yogesh and in no acute distress. Head/Face: Normocephalic, atraumatic. Eyes: Pupils equal round and reactive to light, extra-ocular motions intact. Lids and lashes normal. Conjunctiva and sclera are non-icteric and not injected. Cornea within normal limits. Periorbital areas with no swelling, redness, or edema. ENT: Nares patent. No nasal discharge, no septal abnormalities noted. Tympanic membranes are normal and external auditory canals are clear. Oropharynx with no redness, swelling, or masses, exudates, or evidence of obstruction, uvula midline. Mucous membranes moist. Neck: Trachea midline, no thyromegaly or masses palpated, and no cervical lymphadenopathy. Supple, full range of motion without nuchal rigidity, or vertebral point tenderness. No Meningismus. Chest/axilla: Normal chest wall appearance and motion. Nontender with no deformity. No lesions are appreciated. Cardiovascular: Regular rate and rhythm with a normal S1 and S2. No gallops, murmurs, or rubs. Normal PMI, no JVD. No pulse deficits. Respiratory: Lungs have equal breath sounds bilaterally, clear to auscultation and percussion. No rales, rhonchi or wheezes noted. No increased work of breathing, no retractions or nasal flaring. Abdomen/GI: Soft, non-tender, with normal bowel sounds. No distension or tympany. No guarding or rebound. No evidence of tenderness throughout. Male : Normal genitalia with no discharge or lesions. Skin: Warm, dry with normal turgor. Normal color with no rashes, no lesions, and no evidence of cellulitis. MS/ Extremity: Pulses equal, no cyanosis. Neurovascular intact. Full, normal range of motion. Neuro: Awake and alert, GCS 15, oriented to person, place, time, and situation. Cranial nerves II-XII grossly intact. Motor strength 5/5 in all extremities. Sensory grossly intact. Cerebellar exam normal. Normal gait. Psych: Awake, alert, with orientation to person, place and time. Behavior, mood, and affect are within normal limits. 17:27 Back: pain, that is moderate, ROM is painful, normal spinal alignment noted, CVA tenderness, is absent, muscle spasm, is appreciated in the left low back, left mid back, right mid back and right low back. Vital Signs: 16:52 BP 135 / 59; Pulse 73; Resp 18; Temp 98.5; Pulse Ox 97% on R/A; Weight 183.7 kg; Height ll1 6 ft. 2 in. ; Pain 6/10; 17:00 BP 120 / 51; Pulse 66; Resp 16; Pulse Ox 98% on R/A; eh3 18:00 BP 113 / 51; Pulse 69; Resp 17; Pulse Ox 97% on R/A; eh3 16:52 Body Mass Index 52.00 (183.70 kg, 187.96 cm) ll1 16:52 Pain Scale: Adult ll1 Megha Coma Score: 17:27 Eye Response: spontaneous(4). Motor Response: obeys commands(6). Verbal Response: yogesh oriented(5). Total: 15. MDM: 16:46 Patient medically screened. yogesh 17:29 Differential diagnosis: chronic back pain, Fatigue Fracture Obesity Osteoarthritis yogesh ruptured disc, Scoliosis spinal injury, sprain, Ureterolithiasis vertebral fracture. Data reviewed: vital signs, nurses notes, lab test result(s), radiologic studies, plain films. Consideration of Admission/Observation Escalation of care including admission/observation considered. I considered the following discharge prescriptions or medication management in the emergency department Medications were administered in the Emergency Department. See MAR. Independent interpretation of the following test(s) in the Emergency Department X-Ray: My interpretation is lumbar x ray. Test considered but Not performed: X-ray: l spine , poor quality. Care significantly affected by the following chronic conditions: sleep apnea. 03/28 17:23 Order name: CBC with Diff; Complete Time: 18:09 [facility] 03/28 17:23 Order name: Comprehensive Metabolic Panel; Complete Time: 18:31 [facility] 03/28 17:23 Order name: Urinalysis w/ reflexes; Complete Time: 18:24 [facility] 03/28 17:23 Order name: Lumbar Spine (3 Views) XRAY yogesh Administered Medications: 17:30 Drug: Diazepam PO 10 mg Route: PO; eh3 18:31 Follow up: Response: No adverse reaction eh3 17:40 Drug: NS 0.9% IV 1000 ml Route: IV; Rate: 1 bolus; Site: right antecubital; eh3 18:32 Follow up: IV Status: Completed infusion; IV Intake: 1000ml eh3 17:40 Drug: Decadron - Dexamethasone IVP 10 mg Route: IVP; Site: right antecubital; eh3 18:32 Follow up: Response: No adverse reaction eh3 17:40 Drug: Ketorolac IVP 30 mg Route: IVP; Site: right antecubital; eh3 18:32 Follow up: Response: No adverse reaction eh3 17:40 Drug: Ondansetron IVP 4 mg Route: IVP; Site: right antecubital; eh3 18:31 Follow up: Response: No adverse reaction 3 17:59 Not Given (Patient Refused): morphine IVP or IV 4 mg IVP once over 4 mins 3 Disposition Summary: 03/28/23 18:24 Discharge Ordered Location: Home yogesh Problem: new yogesh Symptoms: have improved yogesh Condition: Stable yogesh Diagnosis - Morbid (severe) obesity due to excess calories yogesh - Injury of muscle, fascia and tendon of abdomen, lower back and pelvis yogesh - Sciatica, right side yogesh Followup: yogesh - With: Private Physician - When: 2 - 3 days - Reason: Recheck today's complaints, Continuance of care, Re-evaluation by your physician Followup: yogesh - With: - When: 2 - 3 days - Reason: Recheck today's complaints, Re-evaluation by your physician Discharge Instructions: - Discharge Summary Sheet yogesh - Obesity, Adult yogesh - Sciatica yogesh - Obesity, Adult, [id number] yogesh - Radicular Pain yogesh Forms: - Medication Reconciliation Form yogesh - Thank You Letter yogesh - Antibiotic Education yogesh - Prescription Opioid Use yogesh - Patient Portal Instructions yogesh - Leadership Thank You Letter yogesh - Work release form 3 Prescriptions: - acetaminophen-codeine 300-30 mg Oral tablet - take 2 tablet by ORAL route every 6 hours as needed for pain; 20 tablet; yogesh Refills: 0, Product Selection Permitted - dexamethasone 2 mg Oral tablet - take 1 tablet by ORAL route every 12 hours; 10 tablet; Refills: 0, Product yogesh Selection Permitted - Valium 5 mg Oral Tablet - take 1 tablet by ORAL route every 8 hours As needed; 20 tablet; Refills: 0, yogesh Product Selection Permitted - Diclofenac Sodium 75 mg Oral tablet,delayed release (DR/EC) - take 1 tablet by ORAL route 2 times per day; 20 tablet; Refills: 0, Product yogesh Selection Permitted Signatures: Dispatcher [employer] Chon Griffith MD MD cha Lewis, Lynsay, RN RN ll1 Alexa Edwards RN RN eh3
[2023-03-28 18:26] LABS: Albumin 3.8 g/dL (3.4-5.0); Bilirubin Total 0.5 mg/dL (0.2-1.0); Potassium 3.8 mEq/L (3.5-5.1); Protein, Total 7.8 g/dL (6.4-8.2)
--- NOTE | 2023-03-28 18:43 | RAD REPORT ---
EXAM DESCRIPTION: RAD - Lumbar Spine 3 Views - 03/28/2023 6:19 pm CLINICAL HISTORY: PAIN COMPARISON: No comparisons FINDINGS/IMPRESSION: No acute fracture. No malalignment. No significant focal degenerative changes.
[2023-03-28 19:43] VITALS: TEMP 98.5
[2023-03-28 19:45] VITALS: BP 113/51; O2SAT 97
== END 2023-03-28 18:59 | disposition home or self-care (01) ==
LOC: ER 16:42
DX: S39.001A Unspecified injury of muscle, fascia and tendon of abdomen, initial encounter (principal); S39.002A Unspecified injury of muscle, fascia and tendon of lower back, initial encounter; S39.003A Unspecified injury of muscle, fascia and tendon of pelvis, initial encounter; M54.31 Sciatica, right side; E66.01 Morbid (severe) obesity due to excess calories; Z68.43 Body mass index [BMI] 50.0-59.9, adult
CPT/HCPCS: 96361; 85025; 81001; 36415; 80053; 72100; 96375; 96374; 99284; J1100; J2405; J7030